=== PATIENT | male | born 1955 | race Caucasian/White ===

== ENCOUNTER 2020-04-07 10:09 | Outpatient (CLI) | payer MEDICARE, SELFPAY | END 2020-04-07 10:10 | disposition home or self-care (01) | PROVIDERS: PCP Internal Medicine; Visit Provider Surgery | DX: K40.90 Unilateral inguinal hernia, without obstruction or gangrene, not specified as recurrent (principal); Z01.812 Encounter for preprocedural laboratory examination | CPT/HCPCS: 36415; 86850; 86900; 86901 ==

== ENCOUNTER 2020-04-08 14:08 | Outpatient (CLI) | payer MEDICARE, SELFPAY ==
[2020-04-08 19:08] LABS: SARS-CoV-2 RNA PCR Negative
== END 2020-04-08 14:09 | disposition home or self-care (01) ==
PROVIDERS: PCP Internal Medicine; Visit Provider Surgery
DX: Z01.818 Encounter for other preprocedural examination (principal); Z11.59 Encounter for screening for other viral diseases
CPT/HCPCS: 87635; C9803; U0003

== ENCOUNTER 2020-04-10 00:48 | Day surgery (SDC) | payer MEDICARE, SELFPAY ==
[2020-04-04 15:10] VITALS: BMI 25.1
[2020-04-10] VITALS (12 sets, daily range): BP systolic 110–129; BP diastolic 55–77; PULSE 41–58; RESP 10–18; TEMP 36.2–36.4; O2SAT 99–100
[2020-04-10] MEDS: LACTATED RINGERS 1,000 ML 30 ML IV CONT ×2 (10:30→13:20)
[2020-04-10] MEDS: ACETAMINOPHEN 500 MG TABLET 1000 MG PO (10:50)
[2020-04-10] MEDS: KETOROLAC 15 MG/ML VIAL (*BKC) IV PUSH (11:05)
--- NOTE | 2020-04-10 11:21 | WPDANESEPPF ---
Anes - Initial Pre Proc Eval Procedure: Operation Date: 04/10/20 12:00 Proposed Procedures p Robotic Assisted Left Inguinal Hernia Repair With Mesh - Sayra Gagnon MD Date/Time: 04/10/20 11:21 Surgeon: Sayra Gagnon MD Pre Op Diagnosis: Left Inguinal Hernia Patient Data Age: 65 Gender: M Height: 5 ft 10 in Weight: 79.1 kg Last Vital Signs Temp 36.4 C L 04/10/20 10:52 Pulse 55 L 04/10/20 10:52 BP 129/77 04/10/20 10:52 Pulse Ox 100 04/10/20 10:52 Allergies Allergy/AdvReac Type Severity Reaction Status Date / Time No Known Allergies Allergy Verified 04/04/20 14:45 Home Medications Medication Instructions Recorded Confirmed Type escitalopram oxalate 10 mg tablet 10 mg PO DAILY 03/14/20 04/10/20 History cyanocobalamin (vitamin B-12) 1,000 mcg PO DAILY 04/04/20 04/10/20 History multivitamin,oz-zhde-fuhicswv 1 tablet PO DAILY 04/04/20 04/10/20 History [Complete Multivitamin] saw-vit E-sod vir-mxl-ztgn-pyg 1 tablet PO DAILY 04/04/20 04/10/20 History [Prostate Health] Patient hx anesthesia problems: none Family hx anesthesia problems: none PMFSH Past Medical History Medical History High cholesterol History of kidney stones Surgical History Surgical History H/O nephrolithotomy with removal of calculi Family History Family History Father Carcinoma of colon Sibling Heart disease Unknown Diabetes mellitus Cancer Tuberculosis Social History Social History Smoking status: Never smoker Alcohol intake: never Living arrangements: with family Spiritual care concerns: No Anes - Eval Final PreProcedure Day of Procedure 04/10/20 11:21 Patient weight: normal Heart: regular rate and rhythm Lungs: clear to auscultation Airway: Mallampati scale class II and other (chipped front tooth) Neurological: alert and oriented Last oral intake: >/= 8 hours ASA classification: II Emergent: no Anesthetic plan: proceed Anesthesia type and monitoring: general ETT and standard monitoring Informed Consent: The patient's anesthetic plan and its attendant risks and benefits were discussed with the patient/family/POA. Questions were solicited and answers provided to the satisfaction of the patient/family/POA.
--- NOTE | 2020-04-10 11:43 | WPDHPUPDATE1 ---
History and Physical Update Update Date/Time: 04/10/20 11:43 History and Physical has been reviewed, including an updated exam of the patient. There are NO changes in the patient's condition. Risks, benefits, and alternatives have been discussed and questions answered. Patient agrees to proceed with procedure.
[2020-04-10] MEDS: ceFAZolin 2 GM/D5W 50 ML 2 GM/50 ML BAG IVPB (11:53)
[2020-04-10] MEDS: BUPIVACAINE/EPINEPHRINE 0.5% 30 ML VIAL INFILTRATE (12:23)
--- NOTE | 2020-04-10 13:41 | PM.PROC ---
Procedure Note - Detailed Date of procedure: 04/10/20 Pre-op diagnosis: Left Inguinal Hernia Post-op diagnosis: same Procedure performed: robotic assisted left inguinal hernia repair Description of procedure: Patient was brought into the operating room and placed in the supine position. After adequate induction of general anesthesia, the patient was prepped and draped in normal sterile fashion. A time-out was then done to verify the patient's identity, as well as the procedure being performed. Began by making a 8 mm incision in the supraumbilical region, a Veress needle was then placed into the peritoneal cavity. CO2 gas was then insufflated and after adequate pneumoperitoneum was achieved, the Veress needle was removed. I then placed an 8 mm trocar through this incision. I then placed the endoscope through this trocar site and under direct visualization placed 2 further 8 mm ports in the right and left mid abdomen. The [id number] robot was then docked to the 3 trocar sites. I then scrubbed out and went to the robotic console. Upon examining the pelvis, it was noted that the patient had a left inguinal hernia. I began by making a preperitoneal flap approximately 6 cm superior to the defect. This flap was carried medially past the umbilical ligaments in laterally to the transversalis. It then began dissection of my medial compartment taking this down to the pubic tubercle. I then began the lateral dissection taking this down to the transversalis fascia. Once these compartments were achieved, I began dissection around the cord structures. It was noted at this point that the patient had a indirect hernia. Patient also had a large lipoma the cord. Using careful dissection, was able to reduce the lipoma cord as well separate the indirect hernia off the cord structures. Once this was adequately done, I went ahead and placed a 15 x 10 piece of Pro Party Demonstrator mesh into the abdominal cavity. The mesh was carefully positioned, centering the center of the mesh over the indirect defect. Once this was done, was very satisfied with our repair. I then closed the peritoneal flap with a running 2.0 V Lock suture. The abdomen was then desufflated, and all ports were removed. All incisions were then closed with the 4.0 monocryl suture. Dermabond was placed on each wound. The patient tolerated the procedure well, was extubated in the operating room postoperatively, and will now be transferred to the recovery room in stable condition. Implants: 15 x 10 progrip mesh Anesthesia: GETA Surgeon: Sayra Gagnon MD Estimated blood loss (mL): 5 Drains: No Packing: No Pathology: none sent Complications: No immediate complications Condition: stable Disposition: PACU Findings: indirect LIH
--- NOTE | 2020-04-10 17:20 | SUR.PHASEII ---
PT VOIDED AT 1700.
== END 2020-04-10 17:20 | disposition home or self-care (01) ==
PROVIDERS: PCP Internal Medicine; Visit Provider Surgery
PROC: 8E0Y4CZ Robotic Assisted Procedure of Lower Extremity, Percutaneous Endoscopic Approach (ICD-10-PCS; CPT 49650; principal; 2020-04-10 12:00)
DX: K40.90 Unilateral inguinal hernia, without obstruction or gangrene, not specified as recurrent (principal); E78.00 Pure hypercholesterolemia, unspecified
CPT/HCPCS: 49650; S2900; A9270; C1781; J0690; J1100; J1170; J1885; J2250; J2405; J2704; J3010; J7120

== ENCOUNTER 2021-06-15 02:14 | Day surgery (SDC) | payer MEDICARE, SELFPAY ==
[2021-06-05 13:57] VITALS: BMI 26.0
--- NOTE | 2021-06-12 12:37 | PM.HPGS ---
History of Present Illness History of Present Illness Consent: Risks, benefits, and alternatives have been discussed and questions answered. Patient agrees to proceed with procedure. Chief complaint: family hx colon ca z80.0 neoplasm Z12.11 Narrative: Lei Vines Jr. is a 66 year old maleWith family history of colon cancer, His father.. He is here today for colon cancer screening Review of Systems Review of Systems: All systems reviewed & are unremarkable except as noted in HPI and below PMFSH Past Medical History Medical History High cholesterol History of kidney stones Surgical History Surgical History H/O hernia repair H/O nephrolithotomy with removal of calculi Family History Family History Father Carcinoma of colon Sibling Heart disease Unknown Diabetes mellitus Cancer Tuberculosis Social History Social History Smoking status: Never smoker Alcohol intake: never Substance use: never Substance use type: does not use Living arrangements: with family Spiritual care concerns: No Meds Home Medications and Allergies Home Medications Medication Instructions Recorded Confirmed Type escitalopram oxalate 10 mg tablet 10 mg PO DAILY 03/14/20 06/05/21 History Complete Multivitamin 1 tablet PO DAILY 04/04/20 06/05/21 History Prostate Health 1 tablet PO DAILY 04/04/20 06/05/21 History cyanocobalamin (vitamin B-12) 1,000 mcg PO DAILY 04/04/20 06/05/21 History vitamins A,C,D-zyzo-kbwpdo 1 cap PO BID 06/05/21 06/05/21 History [PreserVision AREDS] Allergies Allergy/AdvReac Type Severity Reaction Status Date / Time No Known Allergies Allergy Verified 06/15/21 07:59 Exam Resp: Auscultation: clear to auscultation bilaterally Cardio: Rate: regular rate Rhythm: regular rhythm GI: GI Palp: Yes Soft to palpation and No Tenderness to palpation present (GI) Assessment and Plan Assessment and plan (1) Colon cancer screening: Code(s): Z12.11 - Encounter for screening for malignant neoplasm of colon Status: Acute Assessment and Plan: Colonoscopy with possible biopsy or polypectomy or cautery or injection of substances.
[2021-06-15 08:00] VITALS: BP 126/75; PULSE 62; RESP 18; TEMP 36.5; O2SAT 100; BMI 25.6
[2021-06-15] MEDS: LACTATED RINGERS 1,000 ML 150 ML IV CONT (08:09)
--- NOTE | 2021-06-15 08:28 | WPDANESEPPF ---
Anes - Initial Pre Proc Eval Procedure: Operation Date: 06/15/21 09:00 Proposed Procedures p Screening Colonoscopy - Tim Elizabeth MD Date/Time: 06/15/21 08:28 Surgeon: Tim Elizabeth MD Pre Op Diagnosis: family hx colon ca z80.0 neoplasm Z12.11 Patient Data Age: 66 Gender: M Height: 1.75 m Weight: 78.8 kg Last Vital Signs Temp 97.7 F 06/15/21 08:00 Pulse 62 06/15/21 08:00 Resp 18 06/15/21 08:00 BP 126/75 06/15/21 08:00 Pulse Ox 100 06/15/21 08:00 Allergies Allergy/AdvReac Type Severity Reaction Status Date / Time No Known Allergies Allergy Verified 06/15/21 07:59 Home Medications Medication Instructions Recorded Confirmed Type escitalopram oxalate 10 mg tablet 10 mg PO DAILY 03/14/20 06/05/21 History Complete Multivitamin 1 tablet PO DAILY 04/04/20 06/05/21 History Prostate Health 1 tablet PO DAILY 04/04/20 06/05/21 History cyanocobalamin (vitamin B-12) 1,000 mcg PO DAILY 04/04/20 06/05/21 History vitamins A,C,U-jtci-mmludi 1 cap PO BID 06/05/21 06/05/21 History [PreserVision AREDS] Patient hx anesthesia problems: none Family hx anesthesia problems: none PMFSH Past Medical History Medical History High cholesterol History of kidney stones Surgical History Surgical History H/O hernia repair H/O nephrolithotomy with removal of calculi Family History Family History Father Carcinoma of colon Sibling Heart disease Unknown Diabetes mellitus Cancer Tuberculosis Social History Social History Smoking status: Never smoker Alcohol intake: never Substance use: never Substance use type: does not use Living arrangements: with family Spiritual care concerns: No Anes - Eval Final PreProcedure Day of Procedure 06/15/21 08:28 Patient weight: normal Heart: regular rate and rhythm Lungs: clear to auscultation Airway: Mallampati scale class II Neurological: alert and oriented Last oral intake: >/= 8 hours ASA classification: II Emergent: no Anesthetic plan: proceed Anesthesia type and monitoring: general GIVS and standard monitoring Informed Consent: The patient's anesthetic plan and its attendant risks and benefits were discussed with the patient/family/POA. Questions were solicited and answers provided to the satisfaction of the patient/family/POA.
[2021-06-15] MEDS: SIMETHICONE ORAL SUSPENSION 20 MG/0.3 ML 30 ML BOTTLE 0.6 ML IRRIGATION (08:56)
[2021-06-15 09:08] VITALS: BP 94/68; PULSE 78; RESP 25; O2SAT 97
[2021-06-15 09:18] VITALS: BP 107/69; PULSE 70; RESP 23; O2SAT 98
[2021-06-15 09:28] VITALS: BP 119/61; PULSE 55; RESP 18; O2SAT 99
== END 2021-06-15 09:39 | disposition home or self-care (01) ==
PROVIDERS: PCP Internal Medicine; Visit Provider Internal Medicine Gastroenterology
PROC: 0DJD8ZZ Inspection of Lower Intestinal Tract, Via Natural or Artificial Opening Endoscopic (ICD-10-PCS; CPT 45378; principal; 2021-06-15 09:00)
DX: Z12.11 Encounter for screening for malignant neoplasm of colon (principal); K57.30 Diverticulosis of large intestine without perforation or abscess without bleeding; D12.5 Benign neoplasm of sigmoid colon; K64.8 Other hemorrhoids; Z80.0 Family history of malignant neoplasm of digestive organs
CPT/HCPCS: 45381; 45385; 88305; J7120

== ENCOUNTER 2022-09-18 18:17 | Emergency (ER) | payer MEDICARE, SELFPAY ==
--- NOTE | ~2022-09-18 | CT_ITS ---
EXAMINATION: CT abdomen pelvis wo con DATE: 09/19/2022 03:13 INDICATION: L flank pain, hematuria, N/V TECHNIQUE: Computed tomography (CT) of the abdomen and pelvis was performed without intravenous contr ast. Automated exposure control and iterative reconstruction technique were employed. The dose-length product was 425.48 mGy-cm. COMPARISON: None. FINDINGS: Lower thorax: Dependent atelectasis. Small hiatal hernia. Coronary artery calcification. Liver: Left liver lobe cyst. Biliary/Gallbladder: Gallbladder is normal. No bile duct dilation. Pancreas: No mass or duct dilation. Spleen: Normal. Adrenals:No mass. Kidneys: Mild left perinephric stranding and hydronephrosis. GI tract: No small or large bowel dilation. Normal appendix. Diverticulosis without diverticulitis. Mesentery/Peritoneum: No ascites, mass, or free air. Retroperitoneum: No mass. Atherosclerotic abdominal aortic and/or arterial calcifications. Pelvis: 5 mm left distal ureteral stone at the pelvic brim. Soft Tissues: Soft tissues and body wall unremarkable. Bones: No acute osseous finding. IMPRESSION: 5 mm distal left ureteral stone causing mild obstructive uropathy Reviewed, dictated and finalized at location K. TEXTURE MACHINE OPERATOR
[2022-09-18 19:22] VITALS: BP 103/60; PULSE 58; RESP 18; TEMP 36.3; O2SAT 99
[2022-09-18 22:09] VITALS: BP 123/53; PULSE 63; RESP 22; O2SAT 100
[2022-09-18 22:14] LABS: Basophils Percent Auto 0.2 % (0.2-1.2); Eosinophils Percent Auto 0.3 % (0-4.4); Hematocrit 38.9 % (42.0-52.0); Hemoglobin 13.2 g/dL (14.0-18.0); Immature Granulocyte Absolute 0.02 K/mm3 (0.00-0.031); Immature Granulocyte Percent A 0.2 % (0-0.5); Lymphocytes Absolute Auto 0.78 K/mm3 (0.9-3.2); Lymphocytes Percent Auto 7.8 % (18.3-44.2); Mean Corpuscular HGB Conc 33.9 g/dl (32-36); Mean Corpuscular Hemoglobin 33.2 pg (26-34); Mean Corpuscular Volume 97.7 fl (80-100); Mean Platelet Volume 9.9 fl (7.4-10.4); Monocytes Absolute Auto 0.4 K/mm3 (0.1-0.6); Monocytes Percent Auto 3.5 % (2.6-8.5); Neutrophils Absolute Auto 8.9 K/mm3 (1.3-6.7); Platelet Count Result 272 k/mm3 (150-375); Red Blood Count 3.98 M/mm3 (4.6-6.20); Red Cell Distribution Width 12.4 % (11.5-14.5); White Blood Count 10.1 K/mm3 (4.5-10.0)
[2022-09-18 22:16] LABS: Add Urine Microscopic? YES; Appearance Urine Clear (Clear); Bilirubin Urine Negative (Negative); Blood Urine 3+ (Negative); Color Urine Yellow (Yellow); Glucose Urine UA Negative (Negative); Ketones Urine Negative (Negative); Leukocyte Esterase Ur Negative LEU/UL (Negative); Nitrate Urine Negative (Negative); Protein Urine Trace mg/dL (Negative); Specific Grav Ur >= 1.030 (1.001-1.035); pH Urine 5.5 (5.0-9.0)
[2022-09-18 22:24] LABS: Alanine Aminotransferase 23 U/L (6-50); Albumin Level 4.5 g/dL (3.5-5.1); Alkaline Phosphatase 60 U/L (38-126); Anion Gap 9 mmol/L (8-16); Aspartate Amino Transferase 30 U/L (17-59); Bilirubin,Total 0.9 mg/dL (0.2-1.3); Blood Urea Nitrogen 20 mg/dL (9-20); Calcium 9.6 mg/dL (8.4-10.2); Carbon Dioxide 27 mmol/L (22-30); Chloride 105 mmol/L (98-107); Estimated CRCL calculation 56 ml/min; Estimated Glomerular Filt Rate > 60; Glucose 133 mg/dL (65-110); Potassium 3.8 mmol/L (3.4-5.0); Sodium 141 mmol/L (137-145)
[2022-09-18 22:32] LABS: Calcium Oxalate Crystals Urine Present /hpf; Mucus Urine Moderate /lpf; RBC Urine >75 /hpf (0-2); Squamous Epithelial Cell Urine Rare /hpf (Few)
--- NOTE | 2022-09-19 02:53 | ED.ABDPAIN ---
HPI - Abdominal Pain General Chief Complaint: Abdominal Pain Stated Complaint: left flank pain Time Seen by Provider: 09/19/22 02:15 History of Present Illness HPI narrative: 67-year-old male history of kidney stones presenting to the emergency department for evaluation of left-sided flank pain and dark urine. Patient states this morning after breakfast he began having left-sided lower abdominal pain with associated nausea and vomiting. Patient states over the course of the day he also began developing left flank pain. Patient states the pain was similar to his previous kidney stones that he had back and 89 and in 15 but that with his prior stones he did not have the significant nausea and vomiting dated today. While patient was waiting in the waiting room he did have improvement of his pain. Currently patient states that his pain and nausea and vomiting resolved at approximately midnight. Patient denies any complaints at this time. Related Data Home Medications Medication Instructions Recorded Confirmed escitalopram oxalate 10 mg tablet 10 mg PO DAILY 03/14/20 09/20/22 cyanocobalamin (vitamin B-12) 1,000 mcg PO DAILY 04/04/20 09/20/22 1,000 mcg tablet multivitamin,li-huna-ojowhode 1 tablet PO DAILY 04/04/20 09/20/22 (Complete Multivitamin tablet) saw palm 160 mg-vit E 100 1 tablet PO DAILY 04/04/20 09/20/22 unit-selen 100 pnz-qpxj-asqzly-pygeum tablet (Prostate Health) vitamins A,C,A-jcms-otkadf 14,320 1 cap PO DAILY 06/05/21 09/20/22 unit-226 mg-200 unit capsule (PreserVision AREDS) Allergies Allergy/AdvReac Type Severity Reaction Status Date / Time No Known Allergies Allergy Verified 09/20/22 03:42 Review of Systems Review of Systems: CONSTITUTIONAL: Denies fever, chills, or sweats. EYES: Denies visual changes, redness, or discharge. ENT: Denies rhinorrhea, congestion, sore throat, or otalgia. CARDIOVASCULAR: Denies chest pain, palpitations, or edema. RESPIRATORY: Denies cough or dyspnea. GASTROINTESTINAL: See HPI GENITOURINARY: Denies dysuria or hematuria. SKIN: Denies rash or itching. MUSCULOSKELETAL: Denies back pain, joint pain, or myalgia. NEUROLOGIC: Denies headache, numbness, or weakness. [facility] Past Medical History Medical History (Updated 09/20/22 @ 04:06 by Rashaad Bobby MD) High cholesterol History of kidney stones Surgical History Surgical History H/O hernia repair H/O nephrolithotomy with removal of calculi Family History Family History (Updated 09/20/22 @ 04:01 by Carson Kraft RN) Father Carcinoma of colon Sibling Heart disease Cerebrovascular accident Unknown No problems noted. Grandparent Diabetes mellitus Tuberculosis Social History Social History Smoking status: Never smoker Alcohol intake: never Substance use: never Substance use type: does not use Lack of Transportation: No Lack of Food: Never True Current Housing: I Have Housing Concerned About Future Housing: No Difficulty Paying Gas/Electric Bills: No Difficulty Paying for Meds: No Currently Unemployed: No Education: Bachelor's Degree Difficulty w/ Childcare or Family Care: No Spiritual care concerns: No Exam Narrative: APPEARANCE: Well appearing, no pain, no distress, well-nourished. HEAD: normocephalic, atraumatic. EYES: PERRLA/EOMI, conjunctivae clear. NOSE: Normal no drainage NECK: Supple. No adenopathy, no masses. RESPIRATORY: Airway patent, respirations nonlabored. Clear to auscultation bilaterally, no rales, rhonchi, wheezing. CARDIOVASCULAR: Regular rate and rhythm without murmurs rubs or gallops. ABDOMINAL: Soft, nontender, nondistended, normal bowel sounds. No abdominal tenderness to deep palpation. MUSCULOSKELETAL: Moves all extremities. Strength/ROM intact, No edema, No calf tenderness. NEURO: Alert. Cranial nerves II thro
--- NOTE | 2022-09-19 03:20 | PC.NURSE ---
Report received from SOILA Butler, assumed care of patient at this time.
[2022-09-19 04:46] VITALS: BP 123/62; PULSE 71; RESP 17; TEMP 36.6; O2SAT 97
== END 2022-09-19 04:40 | disposition home or self-care (01) ==
PROVIDERS: Emergency Provider Emergency Medicine; PCP Internal Medicine
DX: N20.1 Calculus of ureter (principal)
CPT/HCPCS: 36415; 74176; 80053; 81001; 85025; 99284

== ENCOUNTER 2022-09-20 00:07 | Observation (INO) | payer MEDICARE, SELFPAY ==
[2022-09-20] VITALS (17 sets, daily range): BP systolic 95–155; BP diastolic 60–83; PULSE 52–64; RESP 13–22; TEMP 36.2–36.7; O2SAT 96–100; BMI 25.6; BMI 26.4
--- NOTE | ~2022-09-20 | XR_ITS ---
EXAMINATION: XR retrograde pyelo w/stent LT DATE: 09/20/2022 15:40 JUSTICE PROFESSOR INDICATION: left RPG, left stent placement . TECHNIQUE: 5 fluoroscopic images of the left abdomen and pelvis were obtained during left retrograde pyelography with stent placement performed by the surgeon. I was not present in the operating room. F luoroscopy exposure time was 44 seconds. DAP [id number] [id number]. COMPARISON: CT abdomen pelvis 09/19/2022 FINDINGS: The previously detected distal left ureteral stone is not confidently visualized. Wire access accompl ished to the left collecting system followed by stent deployment with the proximal coil obscured by c ontrast but likely in the renal pelvis and distal coil projecting over the bladder. IMPRESSION: Fluoroscopic documentation of left retrograde pyelography and stent placement. Please refer to the op erative note for complete procedural details . Reviewed, dictated and finalized at location K. ICE PROFESSOR IMPRESSION: Fluoroscopic documentation of left retrograde pyelography and stent placement. Please refer to the operative note for complete procedural details .
[2022-09-20 00:33] LABS: Basophils Percent Auto 0.3 % (0.2-1.2); Eosinophils Absolute Auto 0.1 K/mm3 (0-0.3); Eosinophils Percent Auto 1.1 % (0-4.4); Hematocrit 36.8 % (42.0-52.0); Hemoglobin 12.4 g/dL (14.0-18.0); Immature Granulocyte Absolute 0.04 K/mm3 (0.00-0.031); Immature Granulocyte Percent A 0.4 % (0-0.5); Lymphocytes Absolute Auto 2.09 K/mm3 (0.9-3.2); Lymphocytes Percent Auto 19.1 % (18.3-44.2); Mean Corpuscular HGB Conc 33.7 g/dl (32-36); Mean Corpuscular Hemoglobin 33.2 pg (26-34); Mean Corpuscular Volume 98.7 fl (80-100); Mean Platelet Volume 9.5 fl (7.4-10.4); Monocytes Absolute Auto 0.8 K/mm3 (0.1-0.6); Monocytes Percent Auto 7.4 % (2.6-8.5); Neutrophils Absolute Auto 7.9 K/mm3 (1.3-6.7); Neutrophils Percent Auto 71.7 % (45.5-73.1); Platelet Count Result 235 k/mm3 (150-375); Red Blood Count 3.73 M/mm3 (4.6-6.20); Red Cell Distribution Width 12.6 % (11.5-14.5)
[2022-09-20 00:41] LABS: Add Urine Microscopic? YES; Appearance Urine Clear (Clear); Bilirubin Urine 1+ (Negative); Blood Urine 3+ (Negative); Color Urine Brown (Yellow); Glucose Urine UA Negative (Negative); Ketones Urine Trace mg/dL (Negative); Leukocyte Esterase Ur Negative LEU/UL (Negative); Nitrate Urine Negative (Negative); Protein Urine 2+ mg/dL (Negative); Specific Grav Ur >= 1.030 (1.001-1.035)
[2022-09-20 00:44] LABS: Alanine Aminotransferase 22 U/L (6-50); Albumin Level 4.3 g/dL (3.5-5.1); Alkaline Phosphatase 58 U/L (38-126); Anion Gap 9 mmol/L (8-16); Aspartate Amino Transferase 31 U/L (17-59); Bilirubin,Total 0.5 mg/dL (0.2-1.3); Blood Urea Nitrogen 24 mg/dL (9-20); Calcium 9.1 mg/dL (8.4-10.2); Carbon Dioxide 29 mmol/L (22-30); Chloride 103 mmol/L (98-107); Estimated CRCL calculation 48 ml/min; Estimated Glomerular Filt Rate 55; Glucose 121 mg/dL (65-110); Potassium 3.4 mmol/L (3.4-5.0); Sodium 141 mmol/L (137-145)
[2022-09-20 00:47] LABS: Bacteria Urine Trace /hpf; Mucus Urine Few /lpf; RBC Urine >75 /hpf (0-2); Squamous Epithelial Cell Urine Rare /hpf (Few)
--- NOTE | 2022-09-20 01:21 | ED.GENADULT ---
HPI - General Adult General Chief complaint: Urogenital-Male Stated complaint: left flank pain Time Seen by Provider: 09/20/22 00:09 History of Present Illness HPI narrative: 67-year-old male presenting the emergency department for evaluation of worsening left-sided flank pain. Patient was evaluated emergency department yesterday and diagnosed with a 3 mm distal ureteral stone. Overnight read of the CT measure the stone at 5 mm. Patient was discharged from the emergency department yesterday and his pain was controlled. Patient states his pain returned today at approximately noon and has been persistent. Patient states that the [place] has not helped to control his pain. Patient reports he has had prior kidney stones in and in 2016. Patient's last kidney stone was taken care of by urology at [place]. Patient no longer follows up with this urologist. Related Data Home Medications Medication Instructions Recorded Confirmed escitalopram oxalate 10 mg tablet 10 mg PO DAILY 03/14/20 06/05/21 cyanocobalamin (vitamin B-12) 1,000 mcg PO DAILY 04/04/20 06/05/21 1,000 mcg tablet multivitamin,fd-ajco-oavgqrqg 1 tablet PO DAILY 04/04/20 06/05/21 (Complete Multivitamin tablet) saw palm 160 mg-vit E 100 1 tablet PO DAILY 04/04/20 06/05/21 unit-selen 100 gnd-pcxp-ereeqo-pygeum tablet (Prostate Health) vitamins A,C,O-ritp-ffbpxs 14,320 1 cap PO BID 06/05/21 06/05/21 unit-226 mg-200 unit capsule (PreserVision AREDS) Allergies Allergy/AdvReac Type Severity Reaction Status Date / Time No Known Allergies Allergy Verified 09/20/22 03:42 Review of Systems Review of Systems: CONSTITUTIONAL: Denies fever, chills, or sweats. EYES: Denies visual changes, redness, or discharge. ENT: Denies rhinorrhea, congestion, sore throat, or otalgia. CARDIOVASCULAR: Denies chest pain, palpitations, or edema. RESPIRATORY: Denies cough or dyspnea. GASTROINTESTINAL: See HPI GENITOURINARY: See HPI SKIN: Denies rash or itching. MUSCULOSKELETAL: Denies back pain, joint pain, or myalgia. NEUROLOGIC: Denies headache, numbness, or weakness. [facility] Past Medical History Medical History (Updated 09/20/22 @ 04:06 by Rashaad Bobby MD) High cholesterol History of kidney stones Surgical History Surgical History H/O hernia repair H/O nephrolithotomy with removal of calculi Family History Family History (Updated 09/20/22 @ 04:01 by Carson Kraft RN) Father Carcinoma of colon Sibling Heart disease Cerebrovascular accident Unknown No problems noted. Grandparent Diabetes mellitus Tuberculosis Social History Social History Smoking status: Never smoker Alcohol intake: never Substance use: never Substance use type: does not use Spiritual care concerns: No Exam Narrative: APPEARANCE: Uncomfortable appearing due to flank pain HEAD: normocephalic, atraumatic. EYES: PERRLA/EOMI, conjunctivae clear. NOSE: Normal no drainage EARS:TMS clear with good light reflex. THROAT: Pharynx clear, no exudate. NECK: Supple. No adenopathy, no masses. RESPIRATORY: Airway patent, respirations nonlabored. Clear to auscultation bilaterally, no rales, rhonchi, wheezing. CARDIOVASCULAR: Regular rate and rhythm without murmurs rubs or gallops. ABDOMINAL: Soft, nontender, nondistended, normal bowel sounds MUSCULOSKELETAL: Moves all extremities. Strength/ROM intact, No edema, No calf tenderness. NEURO: Alert. Cranial nerves II through XII intact. Grossly intact SKIN: Warm, dry. Normal Color Course Course Emergency Course: Patient did feel improved with pain medication in the emergency department. Patient is afebrile but does have a leukocytosis of 11. Patient's kidney function is similar to his baseline. UA does show red blood cells but no markers of infection. Patient was negative for influenza COVID an
[2022-09-20] MEDS: SODIUM CHLORIDE 0.9% IV 1,000 ML 999 ML IV CONT (01:26)
[2022-09-20] MEDS: ONDANSETRON INJ 4 MG/2 ML VIAL IV PUSH (01:27)
[2022-09-20] MEDS: HYDROmorphone HCL INJ (*CRX) 1 MG/ML SYR IV PUSH (01:27)
[2022-09-20 02:48] LABS: Influenza A QL RT-PCR Negative (Negative); Influenza B QL RT-PCR Negative (Negative); RSV RNA, RT-PCR Negative (Negative); SARS-CoV-2 RNA PCR Negative
--- NOTE | 2022-09-20 03:33 | PC.NURSE ---
Patient arrived on 3 Med-Surg on 03:27
[2022-09-20] MEDS: SODIUM CHLORIDE 0.9% IV 1,000 ML 100 ML IV CONT ×2 (04:05→13:52)
--- NOTE | 2022-09-20 04:54 | PM.IMHP ---
H&P: HPI History of Present Illness Date/Time: 09/20/22 04:54 Chief Complaint: Worsening pain from kidney stone Narrative: 67-year-old male with past medical history prior hernia repair, anxiety and prior kidney stones who presented to the ER via private vehicle due to worsening left flank pain. The patient had been evaluated in the primary care provider hours of the due to left flank pain, dark urine and nausea vomiting and had a CT scan performed which confirmed 5 mm distal left ureteral stone with mild obstructive uropathy. He reported that he is sad in the ER for 12 hours waiting to be seen. By the time he was placed in a room his pain had completely resolved. He was discharged with scripts for Flomax, ibuprofen, [place] and Zofran. He was discharged home. However, he returned on the primary care provider hours of the due to worsening pain despite use of [place]. The patient's prior kidney stones occurred in 1991 and in 2016. In 2017 the patient required lithotripsy and was performed at [facility]. He has not followed up with urology since that time. He denies any fevers or chills. He had a CBC which demonstrated minimal leukocytosis and a BMP that demonstrate BUN at increased from 20-24 within increasing creatinine from 1.1-1.3. His urine was brown in color with 2+ protein 3+ blood and greater than 75 RBCs. There was no evidence of infection. The patient has not had a recurrence of his nausea vomiting since prior to his earlier ER visit. he reported that when the pain recurred as in the left lower flank. It was exactly like her prior kidney stone pain. Was 10/10 in intensity. [place] did not relieve his pain.The patient also reported hematuria. He denies any difficulty starting or stopping his urinary stream, dysuria, incomplete bladder emptying or nocturia. He gets up 1-2 times a night to urinate but states that 1 of the reasons he does not drink as much water as he should as he does not want to get up any more frequently during the night to urinate. the patient reports that his 1st kidney stone in 1991 he was able to pass on his own. When he had the kidney stones in 2016 he had a fiber 6 mm stone on 1 side for which she had a stent placed. On the other side he had a 10 mm stone up in the kidney that he later had lithotripsy on. He reports that with a stone in 2017 he he developed pyelonephritis and required IV antibiotics. He knows that he is getting recurrent stones because he drinks a lot of tea and soda. He reports that he switched from dark soda to diet 7 up after his last stone. He drinks some sparkling water but does not really drink much regular water. Review of Systems Review of Systems: 10 systems were reviewed with pertinent positives and negatives per HPI. Except as documented in the HPI, all other systems were reviewed and are negative. [facility] Past Medical History Medical History (Updated 09/20/22 @ 07:13 by Hiral Rodriguez DO) Anxiety Cataracts, both eyes maturing High cholesterol History of kidney stones Surgical History Surgical History (Updated 09/20/22 @ 07:08 by Hiral Rodriguez DO) H/O nephrolithotomy with removal of calculi (~2016) History of colonoscopy with polypectomy (05/2021) History of left inguinal hernia repair (04/10/20) Status post cystoscopy with ureteral stent placement (~2016) Family History Family History (Updated 09/20/22 @ 05:16 by Hiral Rodriguez DO) Father Carcinoma of colon Sibling Heart disease Cerebrovascular accident Unknown No problems noted. Grandparent Diabetes mellitus Tuberculosis Social History Social History (Updated 09/20/22 @ 07:09 by Hiral Rodriguez DO) Social History: The patient lives with his of 48 years. They have 1 daughter and 2 sons who are healthy. 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 He is a lifelong nonsmoker and does not drink alcohol. Code status: Full code Surrogate decision maker:
[2022-09-20] MEDS: ESCITALOPRAM OXALATE 10 MG TABLET PO (08:25)
--- NOTE | 2022-09-20 15:27 | WPDANESEPP ---
Anes - Eval Pre Procedure Procedure: Operation Date: 09/20/22 15:30 Proposed Procedures p Cysto, RPG, Stone Ext, Stent Placement - Jag Bruce MD Date/Time: 09/20/22 15:27 Pre Op Diagnosis: Left-sided Ureteral Calculi Patient Data Age: 67 Gender: M Height: 1.75 m Weight: 81.4 kg Last Vital Signs Temp 97.8 F 09/20/22 15:00 Pulse 59 L 09/20/22 15:00 Resp 16 09/20/22 15:00 BP 118/67 09/20/22 15:00 Pulse Ox 96 09/20/22 15:00 O2 Del Method Room Air 09/20/22 08:00 O2 Flow Rate 2 09/20/22 01:40 Allergies Allergy/AdvReac Type Severity Reaction Status Date / Time No Known Allergies Allergy Verified 09/20/22 03:42 Home Medications Medication Instructions Recorded Confirmed Type escitalopram oxalate 10 mg tablet 10 mg PO DAILY 03/14/20 09/20/22 History cyanocobalamin (vitamin B-12) 1,000 mcg PO DAILY 04/04/20 09/20/22 History 1,000 mcg tablet multivitamin,yb-rklz-vypdlati 1 tablet PO DAILY 04/04/20 09/20/22 History (Complete Multivitamin tablet) saw palm 160 mg-vit E 100 1 tablet PO DAILY 04/04/20 09/20/22 History unit-selen 100 ful-vhyv-guesis-pygeum tablet (Prostate Health) vitamins A,C,F-mxgt-bfgabq 14,320 1 cap PO DAILY 06/05/21 09/20/22 History unit-226 mg-200 unit capsule (PreserVision AREDS) Laboratory Tests 09/20/22 09/20/22 09/20/22 00:27 00:27 00:35 WBC 11.0 K/mm3 H K/mm3 (4.5-10.0) RBC 3.73 M/mm3 L M/mm3 (4.6-6.20) Hgb 12.4 g/dL L g/dL (14.0-18.0) Hct 36.8 % L % (42.0-52.0) MCV 98.7 fl fl (80-100) MCH 33.2 pg pg (26-34) MCHC 33.7 g/dl g/dl (32-36) RDW 12.6 % % (11.5-14.5) Plt Count 235 k/mm3 k/mm3 (150-375) MPV 9.5 fl fl (7.4-10.4) Immature Gran % (Auto) 0.4 % % (0-0.5) Neut % (Auto) 71.7 % % (45.5-73.1) Lymph % (Auto) 19.1 % % (18.3-44.2) [place] % (Auto) 7.4 % % (2.6-8.5) Eos % (Auto) 1.1 % % (0-4.4) Baso % (Auto) 0.3 % % (0.2-1.2) Lymph # (Auto) 2.09 K/mm3 K/mm3 (0.9-3.2) [place] # (Auto) 0.8 K/mm3 H K/mm3 (0.1-0.6) Eos # (Auto) 0.1 K/mm3 K/mm3 (0-0.3) Baso # (Auto) 0.0 K/mm3 K/mm3 (0.0-0.1) Abs Immat Gran (auto) 0.04 K/mm3 H K/mm3 (0.00-0.031) Absolute Neuts (auto) 7.9 K/mm3 H K/mm3 (1.3-6.7) Absolute Nucleated RBC 0.0 K/mm3 K/mm3 (0.0-0.012) Nucleated RBC % 0.0 % % (0.0-0.2) Sodium 141 mmol/L mmol/L (137-145) Potassium 3.4 mmol/L mmol/L (3.4-5.0) Chloride 103 mmol/L mmol/L (98-107) Carbon Dioxide 29 mmol/L mmol/L (22-30) Anion Gap 9 mmol/L mmol/L (8-16) BUN 24 mg/dL H mg/dL (9-20) Creatinine 1.30 mg/dL mg/dL (0.7-1.3) Estim Creat Clear Calc 48 ml/min ml/min Estimated GFR 55 L (59 - ) Glucose 121 mg/dL H mg/dL (65-110) Calcium 9.1 mg/dL mg/dL (8.4-10.2) Total Bilirubin 0.5 mg/dL mg/dL (0.2-1.3) AST 31 U/L U/L (17-59) ALT 22 U/L U/L (6-50) Alkaline Phosphatase 58 U/L U/L (38-126) Total Protein 7.0 g/dL g/dL (6.3-8.2) Albumin 4.3 g/dL g/dL (3.5-5.1) Urine Color Brown H (Yellow) Urine Appearance Clear (Clear) Urine pH 5.0 (5.0-9.0) Ur Specific [place] >= 1.030 (1.001-1.035) Urine Protein 2+ mg/dL H mg/dL (Negative) Urine Glucose (UA) Negative mg/dL mg/dL (Negative) Urine Ketones Trace mg/dL mg/dL (Negative) Ur Blood (Man) 3+ H (Negative) Urine Nitrate Negative (Negative) Urine Bilirubin 1+ H (Negative) Urine Urobilinogen 1.0 mg/dL mg/dL (<2.0) Leukocyte Esterase Rfl Negative MAUDE/UL MAUDE/UL (Negative) Urine RBC
[2022-09-20] MEDS: LACTATED RINGERS 1,000 ML 30 ML IV CONT (15:30)
--- NOTE | 2022-09-20 15:33 | WPDURCON ---
Assessment and Plan Assessment and plan (1) Obstructive uropathy: Code(s): N13.9 - Obstructive and reflux uropathy, unspecified Status: Acute (2) Calculus of distal left ureter: Code(s): N20.1 - Calculus of ureter Status: Acute Assessment and Plan: plan for cysto RPG and stent. given failure of MET. risks benefits, alternatives, nature of procedure, potential complications reviewed. -risks including but not limited to bleeding, infection, ureteral injury, stricture, trauma to surrounding/adjacent structures, inability to place stent, need for PCN from IR, the SE and temporary nature of stent reviewed including irritative voiding symptoms pain similar to kidney stone pain, he understands he will need definitive stone management in the future, additionally we discussed anesthesia risks of IN, stroke blood clots, PE, and disability. all ? answered in laymans terms he elects to proceed. present for conversation. Urology Consult Note HPI Date Seen: 09/20/22 Requesting Physician: Viky Rodriguez PA-C Primary Care Provider: Jeremy Flores, Consult Narrative Narrative: Lei Vines Jr. is a 67 year old male with a hx of nephrolitiaisis in 1991 an d[address] Saez and Dr Weaver who presents with recurrent flank pain. he was found to have a left stone and was d/c'ed on MET. Returned to ER with worsening flank pain, nausea and vomiting. Denies fevers/chills. Has been NPO. Cr rising. He has had stents prior and understands they cause pain. He understands we are not treating stone today. Review of Systems Constitutional: Constitutional: Reports no additional constitutional complaints, Denies body ache(s) and Denies chills Eyes: Eyes: Reports no additional eye complaints ENT: Reports system reviewed and no additional complaints, except as documented Cardiovascular: Cardiovascular: Reports no additional cardiovascular complaints Respiratory: Respiratory: Reports no additional respiratory complaints Gastrointestinal: Gastrointestinal: Reports no additional gastrointestinal complaints Genitourinary: Genitourinary: Reports as per HPI Musculoskeletal: Musculoskeletal: Reports as per HPI Integumentary/Breasts: Skin/Breast: Reports system reviewed and no additional complaints, except as docu Neurologic: Reports system reviewed and no additional complaints, except as documented and Denies confusion Psychiatric: Psychiatric: Reports no additional psychiatric complaints PMFSH Past Medical History Medical History Anxiety Cataracts, both eyes maturing High cholesterol History of kidney stones Surgical History Surgical History H/O nephrolithotomy with removal of calculi (~2016) History of colonoscopy with polypectomy (05/2021) History of left inguinal hernia repair (04/10/20) Status post cystoscopy with ureteral stent placement (~2016) Family History Family History Father Carcinoma of colon Sibling Heart disease Cerebrovascular accident Unknown No problems noted. Grandparent Diabetes mellitus Tuberculosis Social History Social History Social History: The patient lives with his of 48 years. They have 1 daughter and 2 sons who are healthy. 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 He is a lifelong nonsmoker and does not drink alcohol. Code status: Full code Surrogate decision maker: Smoking status: Never smoker Alcohol intake: never Substance use: never Substance use type: does not use Lack of Transportation: No Lack of Food: Never True Current Housing: I Have Housing Concerned About Future Housing: No Difficulty Paying Gas/Electric Bills: No Difficulty Paying for Meds: No Currently
--- NOTE | 2022-09-20 15:41 | WPDHPUPDATE1 ---
History and Physical Update Update Date/Time: 09/20/22 15:41 History and Physical has been reviewed, including an updated exam of the patient. There are NO changes in the patient's condition. Risks, benefits, and alternatives have been discussed and questions answered. Patient agrees to proceed with procedure.
--- NOTE | 2022-09-20 15:42 | P.PNAN_ITS ---
Anes - Eval Final PreProcedure Day of Procedure 09/20/22 15:42 Patient weight: overweight Heart: regular rate and rhythm Lungs: clear to auscultation Airway: Mallampati scale class II Neurological: alert and oriented Last oral intake: >/= 8 hours ASA classification: II Emergent: yes Anesthetic plan: proceed Anesthesia type and monitoring: general LMA and standard monitoring Results Review: All pre-operative results and documents have been reviewed as part of the pre- operative evaluation. Informed Consent: The patient's anesthetic plan and its attendant risks and benefits were discussed with the patient/family/POA. Questions were solicited and answers provided to the satisfaction of the patient/family/POA.
[2022-09-20] MEDS: LIDOCAINE HCL 2% GEL UROJET 10 ML PKG MUCOUS MEM (15:57)
--- NOTE | 2022-09-20 16:02 | W.PM.PROC2 ---
Procedure Note - Detailed Date of Procedure 09/20/22 Pre-op Diagnosis Left-sided Ureteral Calculi Post-op Diagnosis Same Procedure Performed cystoscopy, left retrograde pyelogram, left ureteral stent placement Surgeon Jag Bruce MD Anesthesia General Indications ureter stone, failure of trial of passage Findings radio-opaque distal ureter stone Description of Procedure Patient was brought back to the operating room, he received a general anesthetic. He was prepped and draped in standard fashion in the dorsal lithotomy position with Betadine to the genitalia, care was taken to not hyperflex or hyperextend any extremity, all bony prominences were padded. He received IV rocepin on the floor. After appropriate time-out and radiological films were displayed in the room, a 20 Fr cystoscope was inserted into the urethra, it was grossly brandin. prostate was non obstructive. Endoscopy of the bladder reveal single orthotopic ureteral orifices effluxing clear yellow urine. Bladder was free of lesion, tumor mass or stone. Bentson wire was inserted into the left ureter, stone seen on insurance verification representative KUB. Under fluoroscopy I was able to navigate the wire into the kidney, 5 Fr angio cath placed over wire past stone and RPG was performed to outline collecting system. there was mild hydronephrosis and hydroureter to the level of the stone. Wire was replaced a a 4.8 Fr variable length stent was deployed. Good curl was seen fluoroscopically in the kidney and both fluoroscopically and endoscopically in the bladder. 10 cc of uro-jet was used for local anesthesia, All instruments and wires removed, patient awoken and transferred to PACU in stable condition. informed of findings and followup plan Implants left 4.8 variable length double J stent Urine Output 0 Complications No immediate complications Condition Stable Disposition PACU
--- NOTE | 2022-09-20 16:16 | PM.IMPN ---
Progress Note: A&P Assessment and Plan (1) Calculus of distal left ureter: Code(s): N20.1 - Calculus of ureter Status: Acute Assessment and Plan: Presented with left flank pain and CT of the abdomen/pelvis revealed 5 mm distal left ureteral stone causing mild obstructive uropathy. Failed outpatient conservative management with Flomax and analgesics. Appreciate urology consultation. Patient to undergo cystoscopy with stent placement today. No evidence of urinary tract infection, however given mild leukocytosis patient received 1 dose of IV Rocephin preoperatively. Further recommendations pending urology evaluation. Continue with IV fluids while NPO. (2) Obstructive uropathy: Code(s): N13.9 - Obstructive and reflux uropathy, unspecified Status: Acute Assessment and Plan: See plan as above Plan Discussed outpatient follow-up with PCP and consider formal sleep study based on concerns for sleep apnea Subjective Date/time seen: 09/20/22 16:16 Interval history: Date of service: 09/20/2022 Lei Vines is a 67-year-old male with a history of kidney stones, hyperlipidemia, and anxiety who is seen in follow-up for left ureteral stone. Patient presented with complaints of left-sided back and flank pain which he states has resolved at this time. He denies nausea or vomiting. Reports his urine is slightly dark yellow but no longer has blood in his urine. Denies fever, chills, shortness of breath, cough, chest pain. No additional concerns. is present at the bedside who reports concerns for sleep apnea, however patient does not feel he has any issues with sleep. Review of Systems Review of Systems: All systems reviewed & are unremarkable except as noted in HPI and below Exam Narrative: General: Well-nourished, well-appearing 67-year-old male, sitting up in bed, comfortable, NARD Neuro: awake, alert and oriented x4, speech clear, no focal neuro deficits noted HEENMT: normocephalic, atraumatic, EOMI, sclerae anicteric, moist oral mucosa Respiratory: clear to auscultation bilaterally, nonlabored breathing Cardio: regular rate, regular rhythm with S1-S2 Abdomen: nondistended, normoactive bowel sounds, soft, nontender to palpation : No CVA tenderness Extremities: no edema, erythema, or tenderness to palpation, DP pulses 2+ bilaterally Skin: no rashes or lesions, warm and dry Psych: appropriate mood and affect, judgment and insight intact Objective Data Vital Signs Vital Signs: Vital Signs - 24 hr 09/20/22 00:12 09/20/22 01:33 09/20/22 01:49 Temperature 98.0 F Pulse Rate 64 57 L Respiratory Rate 22 H 18 Blood Pressure 136/61 155/83 H Pulse Oximetry 97 100 96 Oxygen Delivery Room Air Oxygen Flow Rate 09/20/22 01:40 09/20/22 02:00 09/20/22 02:01 Temperature Pulse Rate Respiratory Rate Blood Pressure 133/70 Pulse Oximetry 98 98 98 Oxygen Delivery Nasal Cannula Oxygen Flow Rate 2 09/20/22 02:15 09/20/22 02:37 09/20/22 02:45 Temperature Pulse Rate 56 L Respiratory Rate 18 Blood Pressure Pulse Oximetry 98 98 98 Oxygen Delivery Oxygen Flow Rate 09/20/22 03:00 09/20/22 03:01 09/20/22 03:40 Temperature 97.6 F Pulse Rate 60 Respiratory Rate 18 Blood Pressure 122/68 132/66 Pulse Oximetry 99 100 98 Oxygen Delivery Oxygen Flow Rate 09/20/22 04:38 09/20/22 05:47 09/20/22 08:00 Temperature 97.4 F L Pulse Rate 55 L Respiratory Rate 18 Blood Pressure 122/60 Pulse Oximetry 97 Oxygen Delivery Room Air Room Air Oxygen Flow Rate 09/20/22 15:00 09/20/22 16:05 Temperature 97.8 F 97.1 F L Pulse Rate 59 L 52 L Respiratory Rate 16 22 H Blood Pressure 118/67 95/61 L Pulse Oximetry 96 98 Oxygen Delivery Simple Face Mask Oxygen Flow Rate 6 Intake/Output Intake/Output: Intake & Output 09/17/22 09/18/22 09/19/22 09/20/22 23:59 23:59 23:59 23:59 Intake Total 2000
--- NOTE | 2022-09-21 08:14 | PM.DS ---
DS: Admitting Diagnosis Discharge Date 09/20/22 Admitting Diagnosis Ureterolithiasis DS: Discharge Diagnosis Discharge Diagnosis (1) Calculus of distal left ureter: Code(s): N20.1 - Calculus of ureter Status: Acute Assessment and Plan: Presented with left flank pain and CT of the abdomen/pelvis revealed 5 mm distal left ureteral stone causing mild obstructive uropathy. Failed outpatient conservative management with Flomax and analgesics. Patient was seen in consultation by Urology and underwent cystoscopy with left retrograde pyelogram and left ureteral stent placement. Tolerated the procedure well. Will follow-up with urology as an outpatient for stent removal. (2) Obstructive uropathy: Code(s): N13.9 - Obstructive and reflux uropathy, unspecified Status: Acute Assessment and Plan: See plan as above Plan Discussed outpatient follow-up with PCP and consider formal sleep study based on concerns for sleep apnea DS: Summary Hospital Course Hospital Course: Date of admission: 09/20/2022 Date of discharge: 09/20/2022 Lei Vines is a 67-year-old male with a history of kidney stones, hyperlipidemia, and anxiety who presented to the emergency department on 09/20/2022 with complaints of left-sided flank pain. Patient had been seen in the ED 1 day prior and was noted to have a distal ureteral stone. He was discharged with Flomax and analgesics instructed to follow-up with urology. He returned 1 day later after failed conservative management. On presentation to the ED, his vital signs were stable, he was afebrile, WBC 11.0, additional laboratory workup unremarkable, urinalysis with 3+ blood. CT of abdomen/pelvis from 09/19 showed 5 mm distal left ureteral stone causing mild obstructive uropathy. He was admitted to the hospitalist service for further evaluation and management and seen in consultation by Urology. Underwent cystoscopy with left ureteral stent placement. Tolerated the procedure well. His pain was well controlled. Given overall improvement, he was determined to no longer require inpatient care and will follow-up with urology as an outpatient for stent removal. Patient was discharged in hemodynamically stable condition on 09/20/2022. Time Spent with Patient Time attestation: Total time spent providing and/or coordinating discharge services: Exam Narrative: General: Well-nourished, well-appearing 67-year-old male, sitting up in bed, comfortable, NARD Neuro: awake, alert and oriented x4, speech clear, no focal neuro deficits noted HEENMT: normocephalic, atraumatic, EOMI, sclerae anicteric, moist oral mucosa Respiratory: clear to auscultation bilaterally, nonlabored breathing Cardio: regular rate, regular rhythm with S1-S2 Abdomen: nondistended, normoactive bowel sounds, soft, nontender to palpation : No CVA tenderness Extremities: no edema, erythema, or tenderness to palpation, DP pulses 2+ bilaterally Skin: no rashes or lesions, warm and dry Psych: appropriate mood and affect, judgment and insight intact Discharge Plan Discharge Consulting providers: Jag Bruce Discharging Clinician: Jag Bruce Anticipated Discharge Date/Time: 09/20/22 18:12 Patient Disposition: Home, Self-Care Activity: as tolerated Diet: regular Discharge Instructions: Follow up with PCP within 1-2 weeks for hospitalization. Call Urology office to schedule appointment for stent removal. Patient Instructions: Antibiotic Form, Cystoscopy (DC) Stand Alone Forms: General Discharge Information Follow-up/Referrals: Mark,Jeremy Mackenzie MD [Primary Care Provider] - 1 Week Jag Bruce MD [Physician] - Call for Appointment Discharge Medications: Continued escitalopram oxalate 10 mg tablet 10 mg PO DAILY cyanocobalamin (vitamin B-12) 1,000 mcg Tablet 1,000 mcg PO DAILY Complete Multivitamin Tablet 1 tablet PO DAILY Prostate Health 1
== END 2022-09-20 18:35 | disposition home or self-care (01) ==
LOC: ANHED 00:31 → ANH3MEDSUR 03:05
PROVIDERS: Urology; Admitting Provider Internal Medicine; Emergency Provider Emergency Medicine; PCP Internal Medicine; Visit Provider Physician Assistant
PROC: (CPT 52352; principal; 2022-09-20 15:30)
DX: N13.2 Hydronephrosis with renal and ureteral calculous obstruction (principal); E78.00 Pure hypercholesterolemia, unspecified; D72.829 Elevated white blood cell count, unspecified; Z20.822 Contact with and (suspected) exposure to COVID-19; F41.9 Anxiety disorder, unspecified; R79.89 Other specified abnormal findings of blood chemistry; Z87.442 Personal history of urinary calculi; Z79.899 Other long term (current) drug therapy
CPT/HCPCS: 52005; 52332; 36415; 74420; 80053; 81001; 85025; 87637; 96361; 96374; 96375; 99285; A9270; C1758; C1769; C2617; G0378; J0696; J1170; J2405; J2704; J3010; J7030; J7120

== ENCOUNTER 2022-11-10 17:01 | Outpatient (CLI) | payer MEDICARE, SELFPAY ==
--- NOTE | ~2022-11-10 | XR_ITS ---
EXAMINATION: XR abdomen/kub 1V DATE: 11/10/2022 17:20 INDICATION: Left ureteral stone. TECHNIQUE: A supine view of the abdomen on 2 radiographs was obtained. COMPARISON: CT abdomen pelvis 09/19/2022 FINDINGS: There are no dilated loops of bowel. There is no visible urolithiasis. IMPRESSION: 1. No visible urolithiasis. Reviewed, dictated and finalized at location A. ERCIAL LIGHT FIXTURE ASSEMBLER IMPRESSION: 1. No visible urolithiasis.
== END 2022-11-10 17:02 | disposition home or self-care (01) ==
PROVIDERS: PCP Internal Medicine; Visit Provider Urology
DX: N20.1 Calculus of ureter (principal)
CPT/HCPCS: 74018

== ENCOUNTER 2025-07-24 11:20 | Day surgery (SDC) | payer MEDICARE, SELFPAY ==
[2025-07-24] VITALS (9 sets, daily range): BP systolic 102–157; BP diastolic 45–79; PULSE 61–71; RESP 16–29; TEMP 36.4–36.6; O2SAT 95–100
--- NOTE | ~2025-07-24 | XR_ITS ---
Examination: XR chest 1V portable Clinical History: cp Comparison: None Technique: Portable AP Findings: Heart size normal. Lungs clear. No acute bony abnormality. IMPRESSION: 1. No acute cardiopulmonary findings given portable technique. Reviewed, dictated and finalized at location R.
--- NOTE | 2025-07-24 12:31 | ECG_ITS ---
Test Date: 2025-07-24 12:56:02 Measurements Intervals [place] Rate: 70 P: 41 SD: 208 QRS: -42 QRSD: 102 T: 65 QT: 395 QTc: 428 Interpretive Statements SINUS RHYTHM LEFT AXIS DEVIATION POSSIBLE LEFT ATRIAL ENLARGEMENT INCOMPLETE RIGHT BUNDLE BRANCH BLOCK DELAYED PRECORDIAL R/S TRANSITION ST ELEVATION IN ANTERIOR LEADS CONSISTENT WITH INJURY, PERICARDITIS, OR EARLY REPOLARIZATION ABNORMAL ECG No previous ECG available for comparison Electronically Signed On 07-24-2025 13:19:45 CDT by Santiago Hyde D.O.
[2025-07-24] MEDS: GLUCAGON FOR INJ 1 MG VIAL IV PUSH (12:46)
[2025-07-24] MEDS: SODIUM CHLORIDE 0.9% IV 1,000 ML 150 ML IV CONT (12:46)
[2025-07-24 12:56] LABS: Hematocrit 40.6 % (42.0-52.0); Hemoglobin 14.2 g/dL (14.0-18.0); Immature Granulocyte Percent A 0.3 % (0-0.5); Lymphocytes Absolute Auto 1.48 K/mm3 (0.9-3.2); Mean Corpuscular HGB Conc 35.0 g/dl (32-36); Mean Corpuscular Hemoglobin 33.3 pg (26-34); Mean Corpuscular Volume 95.1 fl (80-100); Nucleated Red Blood Cells Absolute Auto 0.000 K/mm3 (0.0-0.012); Nucleated Red Blood Cells Perc 0.0 % (0.0-0.2); Platelet Count Result 252 k/mm3 (150-375); Red Blood Count 4.27 M/mm3 (4.6-6.20); White Blood Count 9.7 K/mm3 (4.5-10.0)
--- NOTE | 2025-07-24 13:02 | ED.GENADULT ---
HPI - General Adult General Chief complaint: Unspecified Stated complaint: esophageal spasms Time Seen by Provider: 07/24/25 12:01 Source: patient Mode of arrival: ambulatory Limitations: no limitations History of Present Illness HPI narrative: 70-year-old with a history of anxiety presents to the ER with complaints of having midsternal chest pain since yesterday. He states that he is unable to swallow his saliva. Had a similar episode few years ago and was at [facility] where he was given an injection which helped with his spasms. He never did follow-up with a GI after that event. Denies any shortness of breath. Onset (ago): day(s) (1) Location: chest Radiation: non-radiation Severity: moderate Quality: aching Pain Consistency: constant Relieving factors: none Exacerbating factors: eating Associated symptoms: denies other symptoms Related Data Home Medications ?Medication ?Instructions ?Recorded ?Confirmed ?Last Taken ?Type escitalopram oxalate 10 mg tablet 10 mg PO DAILY 03/14/20 09/20/22 09/18/22 08:00 History cyanocobalamin (vitamin B-12) 1,000 mcg PO DAILY 04/04/20 09/20/22 09/18/22 08:00 History 1,000 mcg tablet multivitamin,wk-deti-fuwkjnhv 1 tablet PO DAILY 04/04/20 09/20/22 09/18/22 08:00 History (Complete Multivitamin tablet) saw palm 160 mg-vit E 100 1 tablet PO DAILY 04/04/20 09/20/22 09/18/22 08:00 History unit-selen 100 wjb-iuol-ryxqsv-pygeum tablet (Prostate Health) vitamins A,C,A-dmny-ugvoxu 4,296 1 cap PO DAILY 06/05/21 09/20/22 Unknown History mcg-226 mg-90 mg capsule (PreserVision AREDS) Allergies Allergy/AdvReac Type Severity Reaction Status Date / Time No Known Allergies Allergy Verified 07/24/25 13:24 Review of Systems Review of Systems: All systems reviewed & are unremarkable except as noted in HPI and below Constitutional: Constitutional: Reports no additional constitutional complaints Eyes: Eyes: Reports no additional eye complaints ENT: Reports system reviewed and no additional complaints, except as documented Cardiovascular: Cardiovascular: Reports no additional cardiovascular complaints Gastrointestinal: Gastrointestinal: Reports no additional gastrointestinal complaints Musculoskeletal: Musculoskeletal: Reports no additional musculoskeletal complaints Integumentary/Breasts: Skin/Breast: Reports system reviewed and no additional complaints, except as docu PMFSH Past Medical History Medical History Anxiety Cataracts, both eyes maturing High cholesterol History of kidney stones Surgical History Surgical History History of colonoscopy with polypectomy (05/2021) Status post cystoscopy with ureteral stent placement (~2016) History of left inguinal hernia repair (04/10/20) H/O nephrolithotomy with removal of calculi (~2016) Family History Family History Father Carcinoma of colon Sibling Heart disease Cerebrovascular accident Unknown No problems noted. Grandparent Diabetes mellitus Tuberculosis Social History Social History Social History: The patient lives with his of 48 years. They have 1 daughter and 2 sons who are healthy. 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 He is a lifelong nonsmoker and does not drink alcohol. Code status: Full code Surrogate decision maker: Smoking status: Never smoker Alcohol intake: never Substance use: never Substance use type: does not use Lack of Transportation: No Lack of Food: Never True Current Housing: I Have Housing Concerned About Future Housing: No Difficulty Paying Gas/Electric Bills: No Difficulty Paying for Meds: No Currently Unemployed: No Education: Bachelor's Degree Difficulty w/ Childcare or Family Care: No Living arrangements: with family Spiritual care concerns: No Exam Narrative: GENERAL: Well-appearing, well-nourished, and in no acute distress. Anxious and tearful HEAD: Normocephalic, atraumatic. EYES: PERRLA and EOMI. ENT: Nares clear, no rhinorrhea or epistaxis. Mucous membranes moist. NECK: Supple. CHEST: Clear to auscultation. No respiratory distress. HEART: Regular rate and rhythm. No murmur heard. Normal peripheral pulses. ABDOMEN: Soft, nontender, nondistended, normal active bowel sounds. EXTREMITIES: Normal range of motion. No edema. SKIN: Warm, dry, no rash. NEURO: No focal deficits. Alert and oriented x3. PSYCH: Normal mood and affect. Course Course Emergency Course: Discussed with Dr. Ricardo will take him to GI lab Vital Signs Vital signs: Vital Signs Temperature 36.4 C 07/24/25 11:22 Pulse Rate 71 07/24/25 11:22 Respiratory Rate 16 07/24/25 11:22 Blood Pressure 157/79 H 07/24/25 11:22 Pulse Oximetry 98 07/24/25 11:22 Oxygen Delivery Room Air 07/24/25 11:22 Temperature 36.4 C 07/24/25 11:22 Pulse Rate 71 07/24/25 11:22 Respiratory Rate 16 07/24/25 11:22 Blood Pressure 157/79 H 07/24/25 11:22 Pulse Oximetry 98 07/24/25 11:22 Oxygen Delivery Room Air 07/24/25 11:22 Medical Decision Making Vital Signs Vital Signs: Vital Signs Temperature 36.4 C 07/24/25 11:22 Pulse Rate 71 07/24/25 11:22 Respiratory Rate 16 07/24/25 11:22 Blood Pressure 157/79 H 07/24/25 11:22 Pulse Oximetry 98 07/24/25 11:22 Oxygen Delivery Room Air 07/24/25 11:22 Temperature 36.4 C 07/24/25 11:22 Pulse Rate 71 07/24/25 11:22 Respiratory Rate 16 07/24/25 11:22 Blood Pressure 157/79 H 07/24/25 11:22 Pulse Oximetry 98 07/24/25 11:22 Oxygen Delivery Room Air 07/24/25 11:22 Lab Data 07/24/25 12:46 07/24/25 12:46 Labs: Lab Results 07/24/25 Range/Units 12:46 WBC 9.7 (4.5-10.0) K/mm3 RBC 4.27 L (4.6-6.20) M/mm3 Hgb 14.2 (14.0-18.0) g/dL Hct 40.6 L (42.0-52.0) % MCV 95.1 (80-100) fl MCH 33.3 (26-34) pg MCHC 35.0 (32-36) g/dl RDW 13.2 (11.5-14.5) % Plt Count 252 (150-375) k/mm3 MPV 9.3 (7.4-10.4) fl Immature Gran % (Auto) 0.3 (0-0.5) % Neut % (Auto) 76.2 H (45.5-73.1) % Lymph % (Auto) 15.2 L (18.3-44.2) % [place] % (Auto) 6.7 (2.6-8.5) % Eos % (Auto) 1.4 (0-4.4) % Baso % (Auto) 0.2 (0.2-1.2) % Lymph # (Auto) 1.48 (0.9-3.2) K/mm3 [place] # (Auto) 0.7 H (0.1-0.6) K/mm3 Eos # (Auto) 0.1 (0-0.3) K/mm3 Baso # (Auto) 0.0 (0.0-0.1) K/mm3 Abs Immat Gran (auto) 0.03 (0.00-0.031) K/mm3 Absolute Neuts (auto) 7.4 H (1.3-6.7) K/mm3 Absolute Nucleated RBC 0.000 (0.0-0.012) K/mm3 Nucleated RBC % 0.0 (0.0-0.2) % Sodium Pending Potassium Pending Chloride Pending Carbon Dioxide Pending Anion Gap Pending BUN Pending Creatinine Pending Estim Creat Clear Calc Pending Estimated GFR Pending Glucose Pending Calcium Pending Total Bilirubin Pending AST Pending ALT Pending Alkaline Phosphatase Pending Total Protein Pending Albumin Pending Imaging Data Radiologist's impression: ITS Impressions Chest X-Ray 07/24/25 13:06 IMPRESSION: 1. No acute cardiopulmonary findings given portable technique. ECG Data EKG #1: ECG completion date: 07/24/25 ECG completion time: 12:56 EKG Interpretation: normal rate (70), sinus rhythm, no ectopy, normal QRS and NL axis Discharge Plan Discharge Clinical Impression: Food impaction of esophagus Qualifiers: Encounter type: initial encounter Qualified Code(s): T18.128A - Food in esophagus causing other injury, initial encounter; W44.F3XA - Food entering into or through a natural orifice, initial encounter Patient Disposition: Still a Patient Condition: Stable
--- NOTE | 2025-07-24 13:18 | PC.NURSE ---
fluids going per order
[2025-07-24 13:25] LABS: Alanine Aminotransferase 26 U/L (6-50); Albumin Level 4.5 g/dL (3.5-5.1); Alkaline Phosphatase 82 U/L (38-126); Anion Gap 8 mmol/L (4-12); Aspartate Amino Transferase 38 U/L (17-59); Bilirubin,Total 1.7 mg/dL (0.2-1.3); Blood Urea Nitrogen 18 mg/dL (9-20); Calcium 9.5 mg/dL (8.4-10.2); Carbon Dioxide 25 mmol/L (22-30); Chloride 105 mmol/L (98-107); Estimated CRCL calculation 61 ml/min; Estimated Glomerular Filt Rate > 60; Glucose 97 mg/dL (65-110); Potassium 3.8 mmol/L (3.4-5.0); Sodium 138 mmol/L (137-145); Total Protein 7.3 g/dL (6.3-8.2)
--- OUTSIDE RECORDS SUMMARY | 2025-07-24 13:35 | XMS_ITS | Data Portability ---
Author Organization [place] [employer], Main Office Address [address] [place] [address] Care Team Providers Care Cost Report Clerk Name Role Phone ALONZO FLORES Primary Care Provider ALONZO FLORES Referring Provider Assessment Encounter Date Assessment Date Assessment LastModified by Organization Details LastModified Time 08/30/2024 08/30/2024 The patient has a large prepatellar bursa sac of the right anterior knee. We talked about treatment options today in detail we are going to start with aspiration followed by a short course of oral prednisone we talked about this in detail today he wanted to proceed. Therefore under sterile conditions I injected the patient's right anterior lateral knee over the patella with 3 cc of 0.5% bupivacaine. Once this was numbed up I did another sterile prep and I used an 18 gauge needle to aspirate about 25 cc of bloody serous fluid no evidence of pus or infection was noted. This decompressed the sac nicely. I then applied sterile compression dressing and a Band-Aid with gauze and an Aaron wrap. I have advised him to wear the Aaron wrap full-time until I see him back in 1 week to help with compression of the sac so hopefully it will not fill up again he will ice the knee and use the oral steroids as prescribed. I have advised him to not kneel on the knee and stay off the exercise bike for a few days until I see him back help calm down the inflammation. If the fluid returns we could do another aspiration next week we will see what it looks like. Certainly if it starts to look red hot or has any signs of infection whatsoever he will call us immediately he voiced understanding and agreed with the above plan he will call for any further problems difficulties or questions. Today's x-rays were unremarkable other than some mild chondrocalcinosis of the menisci and large prepatellar bursitis fluid collection. Not available 08/30/2024 13:44:57 09/06/2024 09/06/2024 The patient has resolving right knee prepatellar bursitis. He is much improved after oral steroids and aspiration last week. I have advised him to stay off of his knees use ice at the end of a busy day also he will take Aleve 2 pills every 12 hours help with the remaining soft tissue inflammation. He otherwise his symptom free he states it will be livable for him at this point and he is pleased with the aspiration results. If it gets worse or looks concerning in terms of infection he will call me immediately. Otherwise I will see him back as needed he will continue with current conservative measures and call for any further problems difficulties or questions. Not available 09/06/2024 13:46:56 Plan of Treatment Reminders Order Date Submit Date Provider Last Modified By Organization Details Last Modified Time Details Appointments None recorded. Lab lipid panel, serum [email or web address] [place] [address] Outpatient Lab, [address] [place], [address], 4 09:59:50 CMP, serum or plasma 2023 024 [facility], [address] [place], [address], 4 09:59:50 TSH, serum or plasma 2023 024 [email or web address] [facility], [address] [place], [address], 4 09:59:50 T4, free, serum 2023 024 [email or web address] [facility], [address] [place], [address], 4 09:59:50 CBC w/ auto diff 2023 024 [email or web address] [facility], [address] [place], [address], 4 09:59:51 PSA, serum or plasma 2023 024 [email or web address] [facility], [address] [place], [address], 4 09:59:51 PSA, total, serum or plasma 2023 024 [email or web address] [facility], [address] [place], [address], 4 10:55:27 lipid panel, serum 2023 024 [email or web address] [facility], [address] [place] [address], [address], 4 16:45:38 CMP, serum or plasma 2023 024 [email or web address] [facility], [address] [place], [address], 4 16:45:39 TSH, serum or plasma 2023 024 [facility], [address] [place] [address], [address], 4 16:45:39 T4, free, serum 2023 024 [email or web address] [facility], [address] [place] [address], [address], 4 16:45:39 CBC w/ auto diff [email or web address] [place] [address] Outpatient Lab, [address] [place] [address], [address], 4 16:45:39 Referral None recorded. Procedures injection/a spiration joint/bursa (PROC) 2023 024 [email or web address] In-Office Order, Internal Use Only DO Not Attach Compendium DO Not Attach Compendium, Do Not Delete/merge, [id number] 13:38:26 Surgeries None recorded. Imaging XR, knee 2023 024 [email or web address] [facility] [place], [address], [place], [address], 13:46:45 Medication Orders bupivacaine HCl 0.5 % (5 mg/mL) injection solution 2023 024 [email or web address] [facility], [address], [place], [address], 13:46:45 prednisone 10 mg tablets in a dose pack 2023 024 [email or web address] [facility], [address], [place], [address], 13:46:45 Patient TargetsNo targets recorded. Patient Instructions Encounter Date Encounter Id Patient Instructions Last Modified By Organization Details Last Modified Time 10/05/2023 [id number] dementia rating scale-2* [email or web address] Not available 10/05/2023 17:31:46 alcohol misuse* [email or web address] Not available 10/05/2023 17:31:46 depression screening* [email or web address] Not available 10/05/2023 17:31:46 multi-dimensiona l health assessment questionnaire* [email or web address] Not available 10/05/2023 17:31:46 Personalized a lt Plan and Screening Recommendations Advance Directives - Do you have one? Yes Advance Directives - Do we have your advance directive on file in your health record? No, please bring in a copy at your earliest convenience Primary Prevention/Interven tion (prevents or decreases the chance of common diseases from occurring) Smoking Risk: Non Smoker Alcohol Misuse Screening: Negative Weight: Overweight Physical activity: Need more exercise/physical activity Nutrition: Average Eat heart healthy diet Fall Risk (screened today): Low Vaccines Pneumococcal: No further needed Influenza: Recommended today, but you have declined Chronic Disease Risks Stroke: Intermediate Risk Active diagnosis, Continue current treatment plan Heart Attack: Intermediate Risk Active diagnosis, Continue current treatment plan Clogging of the Arteries: Intermediate Risk Active diagnosis, Continue current treatment plan Diabetes: Low Risk I have no recommendations Secondary Prevention/Interven tion (detects treatable diseases before they may cause symptoms, disability, or ) Prostate Cancer Screening: up to date Colon Cancer Screening: Colonoscopy due 2025 Date Screening Last Performed: _2020____ Eye Disease Screening: Your next exam in: goes yearly Dementia Risk: Low I have no recommendations Depression Screening: Negative Active diagnosis, Continue current treatment plan [email or web address] Not available 10/05/2023 17:21:27 Medicare wellnes s evaluation risk assessment stable. Follow-up for hyperlipidemia -depression -possible sleep apnea. Will check blood work consisting of CBC, CMP, lipid and thyroid. Check a home sleep study for possible sleep apnea. Continue on current Rx and follow-up in six months Portions of the record may have been created with voice recognition software. Occasional wrong-word or s ound-a-like substitutions may have occurred due to the inherent limitations of voice recognition software. Read the chart carefully and recognize, using context, where substitutions have occurred. Home sleep study for sleep apnea [email or web address] Not available 10/05/2023 17:31:24 04/04/2024 [id number] Follow-up for hyperlipidemia, mild depression as well as benign prostatic hypertrophy all clinically stable. No interval complaints of any new problems. Does need a PSA but otherwise is doing well. Follow-up in six months Next Appointment: 6 Months Approximate Date: 10/01/2024 Portions of the record may have been created with voice recognition software. Occasional wrong-word or s ound-a-like substitutions may have occurred due to the inherent limitations of voice recognition software. Read the chart carefully and recognize, using context, where substitutions have occurred. [email or web address] Not available 04/04/2024 17:06:53 08/29/2024 [id number] Follow-up for hyperlipidemia, depression, BPH, family history of malignant neoplasm of the GI tract and pain in the right knee. Check blood work consisting of CBC, CMP, lipid, thyroid, PSA. Will get radiographic studies of the knee and set up with orthopedics for further evaluation. Additional Orders - Directives - Recommendations 1. X-ray of the right knee 2. Orthopedic consult for chronic swelling right knee Follow Up: 6 Months Approximate Date: 02/25/2025 Portions of the record may have been created with voice recognition software. Occasional wrong-word or s ound-a-like substitutions may have occurred due to the inherent limitations of voice recognition software. Read the chart carefully and recognize, using context, where substitutions have occurred. Created: Alonzo Flores M.D. 08.29.2024 11:13 AM [email or web address] Not available 08/29/2024 12:13:12 Reason for Referral None Reported. Results Created Date Observation Date Name Description Value Unit Range Abnormal Flag Note LastModifiedBy Organization Detail LastModifiedTime 02/23/20 24 02/24/2024 LIPID PANEL , STAND SUNNY cholesterol, total 171 mg/dL <200 normal Not Available [address], [address], 02/24/2024 08:20:33 02/23/20 24 02/24/2024 LIPID PANEL , STAND SUNNY HDL cholesterol 61 mg/dL > or = 40 normal Not Available [address], [address], 02/24/2024 08:20:33 02/23/20 24 02/24/2024 LIPID PANEL , STAND SUNNY triglyceride s 71 mg/dL <150 normal Not Available [address], [address], 02/24/2024 08:20:33 02/23/20 24 02/24/2024 LIPID PANEL , STAND SUNNY LDL-choleste rol 94 mg/dL _(salome c) normal Refer ence range : <100 Robson able range <100 mg/dL for prima ry preve ntion ; <70 mg/dL for patie nts with CHD or diabe tic patie nts with > or = 2 CHD risk facto rs. LDL-C is now calcu lated using the Joselyn n-Hop kins calcu latio n, which is a valid ated novel metho d provi ding steven r accur acy than the Fried lars equat ion in the estim ation of LDL-C . Joselyn cespedes SS et al. PAMELA. 2013; 310(1 9): 2061- 2068 (http ://ed ucati on.Yoanna aguilarEmployee Benefit Plans. com/f aq/FA Q164) Not Available [address], [address], 02/24/2024 08:20:33 02/23/20 24 02/24/2024 LIPID PANEL , STAND SUNNY chol/HDLC ratio 2.8 (calc ) <5.0 normal Not Available [address], [address], 02/24/2024 08:20:33 02/23/20 24 02/24/2024 LIPID PANEL , STAND SUNNY non HDL cholesterol 110 mg/dL _(salome c) <130 normal For patie nts with diabe lina plus 1 major ASCVD risk facto r, treat ing to a non-H DL-C goal of <100 mg/dL (LDL- C of <70 mg/dL ) is consi dered a thera peuti c optio n. Not Available [address], [address], 02/24/2024 08:20:33 02/23/20 24 02/24/2024 COMPR EHENS HIREN METAB OLIC PANEL glucose 92 mg/dL 65-99 normal Fasti ng refer ence inter monica Not Available [address], [address], 02/24/2024 08:20:35 02/23/20 24 02/24/2024 COMPR EHENS HIREN METAB OLIC PANEL urea nitrogen (BUN) 15 mg/dL 7-25 normal Not Available [address], [address], 02/24/2024 08:20:35 02/23/20 24 02/24/2024 COMPR EHENS HIREN METAB OLIC PANEL creatinine 1.01 mg/dL 0.70-1 .28 normal Not Available [address], [address], 02/24/2024 08:20:35 02/23/20 24 02/24/2024 COMPR EHENS HIREN METAB OLIC PANEL eGFR 80 mL/mi n/1.7 3m2 > or = 60 normal Not Available [address], [address], 02/24/2024 08:20:35 02/23/20 24 02/24/2024 COMPR EHENS HIREN METAB OLIC PANEL BUN/creatini ne ratio SEE NOTE: (calc ) 6-22 Not Repor brennon: BUN and Creat inine are withi n refer ence range . Not Available [address], [place], [address], 02/24/2024 08:20:35 02/23/20 24 02/24/2024 COMPR EHENS HIREN METAB OLIC PANEL sodium 141 mmol/ L 135-14 6 normal Not Available [address], [place], [address], 02/24/2024 08:20:35 02/23/20 24 02/24/2024 COMPR EHENS HIREN METAB OLIC PANEL potassium 4.7 mmol/ L 3.5-5. 3 normal Not Available [address], [address], 02/24/2024 08:20:35 02/23/20 24 02/24/2024 COMPR EHENS HIREN METAB OLIC PANEL chloride 105 mmol/ L 98-110 normal Not Available [address], [address], 02/24/2024 08:20:35 02/23/20 24 02/24/2024 COMPR EHENS HIREN METAB OLIC PANEL carbon dioxide 31 mmol/ L 20-32 normal Not Available [address], [address], 02/24/2024 08:20:35 02/23/20 24 02/24/2024 COMPR EHENS HIREN METAB OLIC PANEL calcium 9.5 mg/dL 8.6-10 .3 normal Not Available [address], [address], 02/24/2024 08:20:35 02/23/20 24 02/24/2024 COMPR EHENS HIREN METAB OLIC PANEL protein, total 6.3 g/dL 6.1-8. 1 normal Not Available [address], [address], 02/24/2024 08:20:35 02/23/20 24 02/24/2024 COMPR EHENS HIREN METAB OLIC PANEL albumin 4.2 g/dL 3.6-5. 1 normal Not Available [address], [address], 02/24/2024 08:20:35 02/23/20 24 02/24/2024 COMPR EHENS HIREN METAB OLIC PANEL globulin 2.1 g/dL_ (calc ) 1.9-3. 7 normal Not Available [address], [address], 02/24/2024 08:20:35 02/23/20 24 02/24/2024 COMPR EHENS HIREN METAB OLIC PANEL albumin/glob ulin ratio 2.0 (calc ) 1.0-2. 5 normal Not Available [address], [address], 02/24/2024 08:20:35 02/23/20 24 02/24/2024 COMPR EHENS HIREN METAB OLIC PANEL bilirubin, total 0.8 mg/dL 0.2-1. 2 normal Not Available [address], [address], 02/24/2024 08:20:35 02/23/20 24 02/24/2024 COMPR EHENS HIREN METAB OLIC PANEL alkaline phosphatase 63 U/L 35-144 normal Not Available [address], [address], 02/24/2024 08:20:35 02/23/20 24 02/24/2024 COMPR EHENS HIREN METAB OLIC PANEL AST 26 U/L 10-35 normal Not Available [address], [address], 02/24/2024 08:20:35 02/23/20 24 02/24/2024 COMPR EHENS HIREN METAB OLIC PANEL ALT 21 U/L 9-46 normal Not Available [address], [address], 02/24/2024 08:20:35 02/23/20 24 02/24/2024 CBC (INCL UDES DIFF/ PLT) white blood cell count 6.1 thous and/u L 3.8-10 .8 normal Not Available [address], [address], 02/24/2024 08:20:36 02/23/20 24 02/24/2024 CBC (INCL UDES DIFF/ PLT) red blood cell count 4.07 brandon on/uL 4.20-5 .80 low Not Available [address], [address], 02/24/2024 08:20:36 02/23/20 24 02/24/2024 CBC (INCL UDES DIFF/ PLT) hemoglobin 13.5 g/dL 13.2-1 7.1 normal Not Available [address], [address], 02/24/2024 08:20:36 02/23/20 24 02/24/2024 CBC (INCL UDES DIFF/ PLT) hematocrit 40.2 % 38.5-5 0.0 normal Not Available [address], [address], 02/24/2024 08:20:36 02/23/20 24 02/24/2024 CBC (INCL UDES DIFF/ PLT) MCV 98.8 fL 80.0-1 00.0 normal Not Available [address], [address], 02/24/2024 08:20:36 02/23/20 24 02/24/2024 CBC (INCL UDES DIFF/ PLT) MCH 33.2 pg 27.0-3 3.0 high Not Available [facility] [address], [address], 02/24/2024 08:20:36 02/23/20 24 02/24/2024 CBC (INCL UDES DIFF/ PLT) MCHC 33.6 g/dL 32.0-3 6.0 normal Not Available [address], [address], 02/24/2024 08:20:36 02/23/20 24 02/24/2024 CBC (INCL UDES DIFF/ PLT) RDW 11.9 % 11.0-1 5.0 normal Not Available [address], [address], 02/24/2024 08:20:36 02/23/20 24 02/24/2024 CBC (INCL UDES DIFF/ PLT) platelet count 238 thous and/u L 140-40 0 normal Not Available [address], [address], 02/24/2024 08:20:36 02/23/20 24 02/24/2024 CBC (INCL UDES DIFF/ PLT) MPV 10.7 fL 7.5-12 .5 normal Not Available [address], [address], 02/24/2024 08:20:36 02/23/20 24 02/24/2024 CBC (INCL UDES DIFF/ PLT) absolute neutrophils 3459 cells /uL 1500-7 800 normal Not Available [facility] [address], [address], 02/24/2024 08:20:36 02/23/20 24 02/24/2024 CBC (INCL UDES DIFF/ PLT) absolute lymphocytes 1629 cells /uL 850-39 00 normal Not Available [address], [address], 02/24/2024 08:20:36 02/23/20 24 02/24/2024 CBC (INCL UDES DIFF/ PLT) absolute monocytes 506 cells /uL 200-95 0 normal Not Available [address], [address], 02/24/2024 08:20:36 02/23/20 24 02/24/2024 CBC (INCL UDES DIFF/ PLT) absolute eosinophils 476 cells /uL 15-500 normal Not Available [address], [address], 02/24/2024 08:20:36 02/23/20 24 02/24/2024 CBC (INCL UDES DIFF/ PLT) absolute basophils 31 cells /uL 0-200 normal Not Available [facility] [address], [address], 02/24/2024 08:20:36 02/23/20 24 02/24/2024 CBC (INCL UDES DIFF/ PLT) neutrophils 56.7 % normal Not Available [facility] [address], [address], 02/24/2024 08:20:36 02/23/20 24 02/24/2024 CBC (INCL UDES DIFF/ PLT) lymphocytes 26.7 % normal Not Available [facility] [address], [address], 02/24/2024 08:20:36 02/23/20 24 02/24/2024 CBC (INCL UDES DIFF/ PLT) monocytes 8.3 % normal Not Available [address], [address], 02/24/2024 08:20:36 02/23/20 24 02/24/2024 CBC (INCL UDES DIFF/ PLT) eosinophils 7.8 % normal Not Available [address], [address], 02/24/2024 08:20:36 02/23/20 24 02/24/2024 CBC (INCL UDES DIFF/ PLT) basophils 0.5 % normal Not Available [facility] [address], [address], 02/24/2024 08:20:36 02/23/20 24 02/24/2024 T4, FREE T4, free 1.0 NG/dL 0.8-1. 8 normal Not Available [address], [address], 02/24/2024 08:20:37 02/23/20 24 02/24/2024 TSH TSH 3.72 mIU/L 0.40-4 .50 normal Not Available [address], [address], 02/24/2024 08:20:38 09/13/20 24 09/13/2024 COVID -19, INFLU [place] A+B, PCR sars-cov-2 RNA(covid19) ,RT-PCR NEGATI VE This test has been autho rized by the FDA under an Emerg ency Use Autho rizat ion (EUA) for use by autho rized labor atori es. Negat hiren resul ts do not precl ude SARS- CoV-2 and shoul d not be used as the sole basis for treat ment or other patie nt manag ement decis ions. Test resul ts shoul d be corre lated with the clini salome histo ry, epide miolo gical data, and other data avail able to the clini edilberto evalu ating the patie nt. Elissa martinez the Fact Sheet s for healt h care provi ders and patie nts at the [facility] lina: https ://ww w.fda .gov/ media /4626 12/do wnloa d https ://ww w.fda .gov/ media /1301 13/do wnloa d Metho dolog y: Real- Time RT-PC R Not Available [facility] (Lab) [address] [place], [address], 09/13/2024 14:20:19 09/13/20 24 09/13/2024 COVID -19, INFLU [place] A+B, PCR influenza A RNA, RT-PCR POSITI VE abnormal Not Available [facility] (Lab) [address] [place], [address], 09/13/2024 14:20:19 09/13/20 24 09/13/2024 COVID -19, INFLU [place] A+B, PCR influenza B RNA, RT-PCR NEGATI VE abnormal Not Available [facility] (Lab) [address] [place], [address], 09/13/2024 14:20:19 09/27/19 25 09/28/2024 LIPID PANEL , STAND SUNNY cholesterol, total 161 mg/dL <200 normal Not Available [employer] [address], [address], 09/28/2024 06:48:20 09/27/19 25 09/28/2024 LIPID PANEL , STAND SUNNY HDL cholesterol 57 mg/dL > or = 40 normal Not Available [facility] [address] [place], [address], 09/28/2024 06:48:20 09/27/19 25 09/28/2024 LIPID PANEL , STAND SUNNY triglyceride s 64 mg/dL <150 normal Not Available [employer] [address], [address], 09/28/2024 06:48:20 09/27/19 25 09/28/2024 LIPID PANEL , STAND SUNNY LDL-choleste rol 89 mg/dL _(salome c) normal Refer ence range : <100 Robson able range <100 mg/dL for prima ry preve ntion ; <70 mg/dL for patie nts with CHD or diabe tic patie nts with > or = 2 CHD risk facto rs. LDL-C is now calcu lated using the Joselyn n-Hop kins calcu latio n, which is a valid ated novel metho d provi ding steven r accur acy than the Fried lars equat ion in the estim ation of LDL-C . Joselyn cespedes SS et al. PAMELA. 2013; 310(1 9): 2061- 2068 (http ://ed ucati on.Qu [employer]. com/f aq/FA Q164) Not Available [facility] [address] [place], [address], 09/28/2024 06:48:20 09/27/19 25 09/28/2024 LIPID PANEL , STAND SUNNY chol/HDLC ratio 2.8 (calc ) <5.0 normal Not Available [facility] [address] [place], [address], 09/28/2024 06:48:20 09/27/1909/28/2024 LIPID PANEL , STAND SUNNY non HDL cholesterol 104 mg/dL _(salome c) <130 normal For patie nts with diabe lina plus 1 major ASCVD risk facto r, treat ing to a non-H DL-C goal of <100 mg/dL (LDL- C of <70 mg/dL ) is kev lewis c optio n. Not Available [facility] [address] [place], [address], 09/28/2024 06:48:20 09/27/19 25 09/28/2024 COMPR EHENS HIREN METAB OLIC PANEL glucose 95 mg/dL 65-99 normal Fasti ng refer ence inter monica Not Available [address], [address], 09/28/2024 06:48:21 09/27/19 25 09/28/2024 COMPR EHENS HIREN METAB OLIC PANEL urea nitrogen (BUN) 15 mg/dL 7-25 normal Not Available [address], [address], 09/28/2024 06:48:21 09/27/19 25 09/28/2024 COMPR EHENS HIREN METAB OLIC PANEL creatinine 1.07 mg/dL 0.70-1 .28 normal Not Available [address], [address], 09/28/2024 06:48:21 09/27/19 25 09/28/2024 COMPR EHENS HIREN METAB OLIC PANEL eGFR 74 mL/mi n/1.7 3m2 > or = 60 normal Not Available [address], [address], 09/28/2024 06:48:21 09/27/1909/28/2024 COMPR EHENS HIREN METAB OLIC PANEL BUN/creatini ne ratio SEE NOTE: (calc ) 6-22 Not Repor brennon: BUN and Creat inine are withi n refer ence range . Not Available [address], [address], 09/28/2024 06:48:21 09/27/1909/28/2024 COMPR EHENS HIREN METAB OLIC PANEL sodium 141 mmol/ L 135-14 6 normal Not Available [address], [address], 09/28/2024 06:48:21 09/27/19 25 09/28/2024 COMPR EHENS HIREN METAB OLIC PANEL potassium 5.0 mmol/ L 3.5-5. 3 normal Not Available [address] [place], [address], 09/28/2024 06:48:21 09/27/19 25 09/28/2024 COMPR EHENS HIREN METAB OLIC PANEL chloride 105 mmol/ L 98-110 normal Not Available [address], [address], 09/28/2024 06:48:21 09/27/1909/28/2024 COMPR EHENS HIREN METAB OLIC PANEL carbon dioxide 32 mmol/ L 20-32 normal Not Available [facility] [address], [address], 09/28/2024 06:48:21 09/27/19 25 09/28/2024 COMPR EHENS HIREN METAB OLIC PANEL calcium 9.3 mg/dL 8.6-10 .3 normal Not Available [address], [address], 09/28/2024 06:48:21 09/27/19 25 09/28/2024 COMPR EHENS HIREN METAB OLIC PANEL protein, total 6.2 g/dL 6.1-8. 1 normal Not Available [address], [address], 09/28/2024 06:48:21 09/27/1909/28/2024 COMPR EHENS HIREN METAB OLIC PANEL albumin 4.2 g/dL 3.6-5. 1 normal Not Available [address], [address], 09/28/2024 06:48:21 09/27/1909/28/2024 COMPR EHENS HIREN METAB OLIC PANEL globulin 2.0 g/dL_ (calc ) 1.9-3. 7 normal Not Available [facility] [address], [address], 09/28/2024 06:48:21 09/27/19 25 09/28/2024 COMPR EHENS HIREN METAB OLIC PANEL albumin/glob ulin ratio 2.1 (calc ) 1.0-2. 5 normal Not Available [address], [address], 09/28/2024 06:48:21 09/27/19 25 09/28/2024 COMPR EHENS HIREN METAB OLIC PANEL bilirubin, total 0.9 mg/dL 0.2-1. 2 normal Not Available [address], [address], 09/28/2024 06:48:21 09/27/1909/28/2024 COMPR EHENS HIREN METAB OLIC PANEL alkaline phosphatase 63 U/L 35-144 normal Not Available [address], [address], 09/28/2024 06:48:21 09/27/19 25 09/28/2024 COMPR EHENS HIREN METAB OLIC PANEL AST 22 U/L 10-35 normal Not Available [address], [address], 09/28/2024 06:48:21 09/27/19 25 09/28/2024 COMPR EHENS HIREN METAB OLIC PANEL ALT 23 U/L 9-46 normal Not Available [address], [address], 09/28/2024 06:48:21 09/27/1909/28/2024 CBC (INCL UDES DIFF/ PLT) white blood cell count 6.7 thous and/u L 3.8-10 .8 normal Not Available [address], [address], 09/28/2024 06:48:23 09/27/19 25 09/28/2024 CBC (INCL UDES DIFF/ PLT) red blood cell count 4.23 brandon on/uL 4.20-5 .80 normal Not Available [address], [address], 09/28/2024 06:48:23 09/27/1909/28/2024 CBC (INCL UDES DIFF/ PLT) hemoglobin 13.7 g/dL 13.2-1 7.1 normal Not Available [address], [address], 09/28/2024 06:48:23 09/27/1909/28/2024 CBC (INCL UDES DIFF/ PLT) hematocrit 42.0 % 38.5-5 0.0 normal Not Available [address], [address], 09/28/2024 06:48:23 09/27/1909/28/2024 CBC (INCL UDES DIFF/ PLT) MCV 99.3 fL 80.0-1 00.0 normal Not Available [address], [address], 09/28/2024 06:48:23 09/27/1909/28/2024 CBC (INCL UDES DIFF/ PLT) MCH 32.4 pg 27.0-3 3.0 normal Not Available [address], [address], 09/28/2024 06:48:23 09/27/1909/28/2024 CBC (INCL UDES DIFF/ PLT) MCHC 32.6 g/dL 32.0-3 6.0 normal For adult s, a sligh t decre ase in the calcu lated MCHC value (in the range of 30 to 32 g/dL) is most likel y not clini rubin andrew t; anil er, it shoul d be inter prete d with cauti on [place] [facility] [place] with other red cell jayna eters and the patie nt's clini salome condi tion. Not Available [address], [address], 09/28/2024 06:48:23 09/27/19 25 09/28/2024 CBC (INCL UDES DIFF/ PLT) RDW 11.8 % 11.0-1 5.0 normal Not Available [address], [address], 09/28/2024 06:48:23 09/27/19 25 09/28/2024 CBC (INCL UDES DIFF/ PLT) platelet count 301 thous and/u L 140-40 0 normal Not Available [address], [address], 09/28/2024 06:48:23 09/27/1909/28/2024 CBC (INCL UDES DIFF/ PLT) MPV 10.3 fL 7.5-12 .5 normal Not Available [address], [address], 09/28/2024 06:48:23 09/27/19 25 09/28/2024 CBC (INCL UDES DIFF/ PLT) absolute neutrophils 3678 cells /uL 1500-7 800 normal Not Available [address], [address], 09/28/2024 06:48:23 09/27/19 25 09/28/2024 CBC (INCL UDES DIFF/ PLT) absolute lymphocytes 2104 cells /uL 850-39 00 normal Not Available [address], [address], 09/28/2024 06:48:23 09/27/19 25 09/28/2024 CBC (INCL UDES DIFF/ PLT) absolute monocytes 697 cells /uL 200-95 0 normal Not Available [address], [address], 09/28/2024 06:48:23 09/27/19 25 09/28/2024 CBC (INCL UDES DIFF/ PLT) absolute eosinophils 201 cells /uL 15-500 normal Not Available [facility] [address], [address], 09/28/2024 06:48:23 09/27/19 25 09/28/2024 CBC (INCL UDES DIFF/ PLT) absolute basophils 20 cells /uL 0-200 normal Not Available [address], [address], 09/28/2024 06:48:23 09/27/19 25 09/28/2024 CBC (INCL UDES DIFF/ PLT) neutrophils 54.9 % normal Not Available [facility] [address], [address], 09/28/2024 06:48:23 09/27/1909/28/2024 CBC (INCL UDES DIFF/ PLT) lymphocytes 31.4 % normal Not Available [address], [address], 09/28/2024 06:48:23 09/27/19 25 09/28/2024 CBC (INCL UDES DIFF/ PLT) monocytes 10.4 % normal Not Available [facility] [address], [address], 09/28/2024 06:48:23 09/27/1909/28/2024 CBC (INCL UDES DIFF/ PLT) eosinophils 3.0 % normal Not Available [facility] [address], [address], 09/28/2024 06:48:23 09/27/1909/28/2024 CBC (INCL UDES DIFF/ PLT) basophils 0.3 % normal Not Available [facility] [address], [address], 09/28/2024 06:48:23 09/27/19 25 09/28/2024 T4, FREE T4, free 1.1 NG/dL 0.8-1. 8 normal Not Available [facility] [address] [place], [address], 09/28/2024 06:48:24 09/27/19 25 09/28/2024 TSH TSH 2.25 mIU/L 0.40-4 .50 normal Not Available [facility] [address] [place], [address], 09/28/2024 06:48:25 09/27/19 25 09/28/2024 PSA, TOTAL PSA, total 0.53 NG/mL < or = 4.00 normal The total PSA value from this assay syste m is stand ardiz ed again st the WHO stand sunny. The test resul t will be appro ximat zan 20% lower when moises red to the equim olar- stand ardiz ed total PSA (Rasheed man Coult er). Moises rison of seria l PSA resul ts shoul d be inter prete d with this fact in mind. This test was perfo rmed using the Chilltime chemi lumin escen t metho d. Value s obtai shirley from diffe rent assay metho ds canno t be used inter ta eably . PSA level s, regar dless of value , shoul d not be inter prete d as absol solomon evide nce of the prese nce or absen ce of disea se. Not Available [facility] [address] , [place], [address], 09/28/2024 06:48:26 08/30/20 24 XR, knee No observ ation record ed. [email or web address] [facility] [place] [address], [place], [address], 08/30/2024 13:45:48 07/24/20 25 07/24/2025 XR, chest , 1 view No observ ation record ed. [email or web address], [place], [address], 07/24/2025 14:19:11 Result Notes None recorded. Problems Name Problem SNOMED Code Status Onset Date Resolution Date Notes Provider Name and Address Organization Details Recorded Time Benign prostatic hyperplasi a without outflow obstructio n 827093739 Active Not Available [facility] 3 06:56:47 Depressive disorder 31570151 Active Not Available [facility] 3 06:56:47 Family history of malignant neoplasm of gastrointe stinal tract 541281892 Active Not Available [facility] 3 06:56:48 Left inguinal pain 3431501542919 9104 Active 2019 Not Available [facility] 3 06:56:47 Pure hyperchole sterolemia 498237318 Active 2022 Alonzo Flores MD [address], [place], [address] , [facility] 3 15:40:06 Sleep apnea 79553715 Active 2023 Alonzo Flores MD [address], [address], [place], [address] , [facility] 4 17:27:21 Pain of right knee joint 3562169301336 00 Active 2023 Alonzo Flores MD [address], [address], [place], [address] , [facility] 4 12:08:40 Disorder of prostate 36878271 Active 2023 Alonzo Flores MD [address], [address], [place], [address] , [facility] 4 12:13:05 Prepatella r bursitis 19337563 Active 2023 Delilah Snow null, [place] - [facility] 4 13:29:49 Fever 207911747 Active 2023 Beatrice Louis CMA null, [place] - [facility] 4 11:10:20 Influenza 7347681 Active 2023 Alonzo Flores MD [address], [address], [place], [address] , [facility] [employer] [facility] 4 14:23:04 Anxiety 56913876 Active 2024 Alonzo Flores MD [address], [facility] [address], [place], [address] , [facility] [employer] [facility] 5 12:18:54 Problem Notes None recorded. Procedures Surgical History Date Name Laterality Status Provider Name and Address Organization Details Recorded Time Medicare Wellness CPT Code, subsequent completed Genet Nobles RN [facility] [employer] 10/05/2023 17:14:02 Imaging Results None recorded. Procedure Notes None recorded. Medical Equipment None Reported. Allergies No known drug allergies Medications Name Sig Start Date Stop Date Status Note LastModified by Organization Details LastModified Time amoxicillin 500 mg capsule Take 1 capsule 3 times a day by oral route for 10 days. 06/09 completed Not Available Not Available Not Available prednisone 10 mg tablet active Not Available Not Available Not Available venlafaxine ER 75 mg capsule,ext ended release 24 hr TAKE ONE CAPSULE BY MOUTH EVERY DAY 06/09 completed Not Available Not Available Not Available doxycycline hyclate 100 mg capsule 03/10 completed Not Available Not Available Not Available atorvastati n 20 mg tablet TAKE 1 TABLET EVERY DAY 2024 active Not Available Not Available Not Avai lable benzonatate 200 mg capsule Take 1 capsule 3 times a day by oral route. 08/01 completed Not Available Not Available Not Available hydrochloro thiazide 50 mg tablet Take 1 tablet every day by oral route. 12/07 completed Not Available Not Available Not Available hydrocodone 5 mg-acetamin ophen 325 mg tablet TAKE 1 TABLET BY MOUTH EVERY 6 HOURS NEEDED FOR PAIN 03/17 completed Not Available Not Available Not Available Levaquin 750 mg tablet Take 1 tablet every day by oral route for 10 days. 12/07 completed Not Available Not Available Not Available bupivacaine HCl 0.5 % (5 mg/mL) injection solution Take 15 mg by injection route. 2023 active Not Available Not Available Not Avai lable aspirin 81 mg tablet,livia yed release Take 1 tablet every day by oral route. 03/16 completed Not Available Not Available Not Available prednisone 10 mg tablets in a dose pack Take 1 tab by mouth, 3 times a day for 3 daysTake 1 tab by mouth 2 times a day for 2 daysTake 1 tab by mouth once a day for 1 day 2023 active Not Available Not Available Not Avai lable lorazepam 0.5 mg tablet TAKE 1 TABLET BY MOUTH THREE TIMES DAILY NEEDED FOR ANXIETY active Not Available Not Available No t Available tamsulosin 0.4 mg capsule TAKE 1 CAPSULE BY MOUTH ONCE DAILY FOR 14 DAYS 03/17 completed Not Available Not Available Not Available oseltamivir 75 mg capsule Take 1 capsule twice a day by oral route for 5 days. active Not Available Not Available No t Available mupirocin 2 % topical ointment APPLY SPARINGLY TO THE AFFECTED AREA THREE TIMES DAILY FOR INFECTION 03/16 completed Not Available Not Available Not Available [place] 10 mg-325 mg tablet 1-2 tablets every 4-6 hours prn 12/07 completed Not Available Not Available Not Available Levaquin 500 mg tablet Take 1 tablet every 24 hours by oral route. 08/01 completed Not Available Not Available Not Available Viagra 100 mg tablet Take 1 tablet(s) an hour before sexually encounter 06/09 completed Not Available Not Available Not Available escitalopra m 10 mg tablet TAKE 1 TABLET EVERY DAY 2024 active Not Available Not Available Not Avai lable Prepopik 10 mg-3.5 gram-12 gram oral powder packet Take 1 packet every day by oral route as directed. 12/07 completed Not Available Not Available Not Available Linzess 72 mcg capsule Take 1 capsule every day by oral route. 12/07 completed Not Available Not Available Not Available Vitals Date Recorded Body height Body mass index (BMI) Body weight Heart rate Body temperature Oxygen saturation Oxygen saturation in Arterial blood by Pulse oximetry Systolic And Diastolic Provider Name and Address Organization Details Last Updated DateTime 4 175.26 cm 27.2 kg/m2 28471.7 9 g 72 /min 97 [degF] 97 % 97 % 120/68 mm[Hg] Dorota LITTLEJOHN [facility] [employer] 4 17:10:23 Date Recorded Pain severity - 0-10 verbal numeric rating [Score] - Reported Provider Name and Address Organization Details Last Updated DateTime 10/05/2023 0 Genet Nobles RN [facility] 10/05/2023 17:14:18 Date Recorded Body height Body mass index (BMI) Body weight Heart rate Body temperature Oxygen saturation Oxygen saturation in Arterial blood by Pulse oximetry Systolic And Diastolic Provider Name and Address Organization Details Last Updated DateTime 175.26 cm 26.4 kg/m2 59731.0 3 g 72 /min 97.5 [degF] 96 % 96 % 122/74 mm[Hg] Deanna Lawrence Leroy [facility] 4 16:46:53 Date Recorded Body height Body weight Heart rate Body temperature Oxygen saturation Oxygen saturation in Arterial blood by Pulse oximetry Systolic And Diastolic Provider Name and Address Organization Details Last Updated DateTime 175.26 cm 84361.5 5 g 97 /min 97 [degF] 98 % 98 % 140/70 mm[Hg] Deanna Lawrence Leroy [facility] 11:52:38 Date Recorded Body height Body mass index (BMI) Body weight Provider Name and Address Organization Details Last Updated DateTime 08/30/2024 175.26 cm 26.6 kg/m2 34586.63 g [facility]30[facility] 13:12:21 Date Recorded Body height Body mass index (BMI) Body weight Provider Name and Address Organization Details Last Updated DateTime 09/06/2024 175.26 cm 26.6 kg/m2 97076.63 [facility] 13:34:48 Social History Question Answer Notes LastModified by Organizat ion Details LastModified Time Tobacco Smoking Status Never Smoker Not Available [facility] 11/24/2022 06:54:06 Do You Have An Advance Directive? Yes [id number] Information not available 11/24/2022 Are You Blind Or Do You Have Difficulty Seeing? No MIGRATION.04534 57163 Information not available 11/24/2022 Are You Deaf Or Do You Have Serious Difficulty Hearing? Yes Has Hearing Aids MIGRATION.45156 31573 Information not available 11/24/2022 What Type Of Diet Are You Following? REGULAR MIGRATION.75069 89987 Information not available 11/24/2022 Have There Been Any Changes To Your Family Or Social Situation? No MIGRATION.86496 72407 Information not available 11/24/2022 What Is The Fluoride Status Of Your Home? Unknown MIGRATION.71289 97098 Information not available 11/24/2022 Are There Any Guns Present In Your Home? No MIGRATION.56073 16567 Information not available 11/24/2022 Do You Use Insect Repellent Routinely? No MIGRATION.30911 [id number] Information not available 11/24/2022 Where Do You Live? [place]House MIGRATION.74765 62664 Information not available 11/24/2022 Guns Present In The Home? Yes [email or web address] Information not available 10/05/2023 Are You Able To Care For Yourself? Yes Information not available 10/05/2023 Are You Blind Or Do Yo Have Difficulty Seeing? No [email or web address] Information not available 10/05/2023 Are You Deaf Or Do You Have Serious Difficulty Hearing? Yes [email or web address] Information not available 10/05/2023 Live Alone Of With Others? With Others [email or web address] Information not available 10/05/2023 Do You Have A Medical Power Of Horse Groomer? Yes MIGRATION.44116 [id number] Information not available 11/24/2022 What Was The Date Of Your Most Recent Tobacco Screening? 10/05/2023 [email or web address] Information not available 10/05/2023 Do You Have Any Pets? No MIGRATION.78483 97881 Information not available 11/24/2022 What Is Your Relationship Status? MIGRATION.20268 66458 Information not available 11/24/2022 Do You Use Your Seat Belt Or Car Seat Routinely? Yes Information not available 10/05/2023 Do You Have Smoke And Carbon Monoxide Detectors In Your Home? Yes MIGRATION.18719 39364 Information not available 11/24/2022 Are You Passively Exposed To Smoke? No MIGRATION.38223 83372 Information not available 11/24/2022 Are There Any Smokers In Your House? No MIGRATION.30799 72915 Information not available 11/24/2022 Do You Use Sunscreen Routinely? Yes MIGRATION.08928 59130 Information not available 11/24/2022 Have You Recently Traveled Abroad? No MIGRATION.44616 64725 Information not available 11/24/2022 Do You Have Difficulty Walking Or Climbing Stairs? No MIGRATION.25281 78430 Information not available 11/24/2022 Do You Have Any Dietary Restrictions? No MIGRATION.98922 04954 Information not available 11/24/2022 Sex: Unknown Functional Status Question Answer Note LastModified by Organizat ion Details LastModified Time What is your level of alcohol consumption? None MIGRATION.[id number] 8958 Information not available 11/24/2022 Do you have transportation difficulties? No MIGRATION.889752 3612 Information not available 11/24/2022 Are you able to walk independently without assistance or assistive devices? YESWOREST MIGRATION.383265 1645 Information not available 11/24/2022 Do you have difficulty doing errands alone? No MIGRATION.412479 9786 Information not available 11/24/2022 Are you able to care for yourself independently? 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 No MIGRATION.463667 6604 Information not available 11/24/2022 What is your exercise level? Moderate MIGRATION.078410 4558 Information not available 11/24/2022 Mental Status Question Answer Note LastModified by Organizat ion Details LastModified Time Do you have difficulty concentrating, remembering or making decisions? No MIGRATION.[id number] 6 Information not available 11/24/2022 Family History Nothing Reported Notes:Mother 90 yea rs old recent TRAY CASTING MACHINE OPERATOR hemorrhage Father 59 years old from [place] 5 Brothers 5 Living one has arteriosclerotic heart disease and CABG, CVA and some multi-infarct dementia. Medical History Condition Response NERVE DISEASE N BLINDNESS N RHEUMATIC FEVER N KIDNEY STONES N BLADDER PROBLEMS N MRSA N OTHER # 1 N POLIO N LUNG DISEASE/DISORDER N COPD N RADIATION / CHEMOTHERAPY N Other # 2 N BLOOD DISEASES N SURGERY N EAR OR HEARING PROBLEMS N MUMPS N DEPRESSION (INCLUDING POST ) N BOWEL PROBLEMS N STROKE/TIA N ULCERS N BENIGN PROSTATIC HYPERPLASIA N MEASLES N MYOCARDIAL INFARCTION N OBESITY N GERD/NAUSEA N ANEURYSM N URINARY/BLADDER/KIDNEY PROBLEMS N CORONARY ARTERY DISEASE (CAD) N ADDICTION CONCERNS N Impotence Y ENDOMETRIOSIS N USE OF BLOOD THINNERS N SKIN PROBLEMS N GASTROINTESTINAL DISORDER N PERIPHERAL VASCULAR DISEASE N MUSCLE,JOINT OR BONE PROBLEMS N GASTROINTESTINAL BLEEDING N BLOOD CLOTS N ASTHMA N CATARACTS N ERECTILE DYSFUNCTION N VARICOSITIES N GI PROBLEMS N Low Testosterone N INFERTILITY N AIDS/HIV N CHEMOTHERAPY / RADIATION N LIVER DISEASE N MALE HYPOGONADISM N HYPERTENSION N Deficiency N ANXIETY DISORDER N BLOOD TRANSFUSION N ANEMIA/BLOOD DISORDER N CHRONIC EAR INFECTIONS N BRONCHITIS N TUBERCULOSIS N GLAUCOMA N FOOT PROBLEM N DIVERTICULITIS N SLEEP APNEA N CHICKENPOX N INFECTIOUS DISEASE N PROSTATE Y HEART ARRHYTHMIA N INSOMNIA N HIGH CHOLESTEROL / HYPERLIPIDEMIA N HYPERTHYROIDISM N EYE PROBLEMS N NEUROLOGICAL PROBLEMS N EDEMA N CHRONIC PAIN SYNDROME N HYPOTHYROIDISM N CONSTIPATION N CAROTID BLOCKAGE N BACK / NECK PROBLEMS N HAVE YOU BEEN HOSPITALIZED OR SEEN IN [facility] IN THE PAST YEAR ? N ATHEROSCLEROSIS N BREAST PROBLEMS N DIALYSIS N ECZEMA N OSTEOPOROSIS N ARTHRITIS N NO SIGNIFICANT PAST MEDICAL HISTORY N APPENDICITIS N DIABETES, TYPE N BAD TEETH N ENT N HEARTBURN / REFLUX N AUTISM SPECTRUM DISORDER (ASD) N HEPATITIS / LIVER DISEASE N GOUT N SLEEP DISORDER N ALZHEIMER'S DISEASE N Brain Problems N HERPES N DEMENTIA N SEIZURES/EPILEPSY N HEADACHES/MIGRAINES N VASCULAR DISEASE N PACEMAKER N Blood Disorder N DIZZINESS N KIDNEY DISEASE N HEART DISEASE/HEART PROBLEMS N MULTIPLE SCLEROSIS N CARDIAC ARRHYTHMIA N CANCER: SPECIFY N Gall Stones N ATRIAL FIBRILLATION N PULMONARY EMBOLISM N AUTOIMMUNE DISEASE N Immunizations Vaccine Type Date Status Note Provider Nam e and Address Organization Details Recorded Time SARS-COV-2 (COVID-19) vaccine, UNSPECIFIED 1 completed Not Available [facility] 11/24/2022 07:01:16 SARS-COV-2 (COVID-19) vaccine, UNSPECIFIED 1 completed Not Available [facility] 11/24/2022 07:01:16 SARS-COV-2 (COVID-19) vaccine, UNSPECIFIED 1 completed Not Available [facility] 11/24/2022 07:01:16 pneumococcal polysaccharide PPV23 2 completed Not Available [facility] 11/24/2022 07:01:17 Influenza, high-dose, quadrivalent, PF 2 completed Not Available [facility] 11/24/2022 07:01:17 Influenza, high-dose, quadrivalent, PF 0 completed Not Available [facility] 11/24/2022 07:01:17 Pneumococcal conjugate PCV 13 0 completed Not Available [facility] 11/24/2022 07:01:17 Past Encounters Encounter ID Performer Location Encounter Start Date Encounter Closed Date Diagnosis/Indication Diagnosis SNOMED-CT Code Diagnosis ICD10 Code Diagnosis IMO Codes Diagnosis Note [id number] Alonzo Flores MD [facility] [place] [address] [facility] [address] , [place] [address] 03/10/2021 00:00:00 03/10/2021 16:59:43 [id number] Alonzo Flores MD [facility] [place] [address] [facility] [address] , [place] [address] 03/16/2022 00:00:00 03/16/2022 16:27:28 [id number] Alonzo Flores MD [facility] [place] [address] [facility] , [place] [address] 09/14/2022 00:00:00 09/14/2022 17:08:33 [id number] Alonzo Flores MD [facility] Internal Med [address] [address] 03/17/2023 10:29:43 03/17/2023 10:40:26 Pure hypercholesterolemia 970519245 E78.00 Depressive disorder 3548 9007 F32.9 [id number] [address] [facility] Internal Med [address] [address] 10/05/2023 16:47:56 10/05/2023 17:36:11 Adult health examination 402815641 Z00.00 Screening for disorder 057985883 Z13.9 Pure hypercholesterolemia 066260766 E78.00 Depressive disorder 3548 9007 F32.9 Sleep apnea 97185706 G47 .30 [id number] Alonzo Flores MD [facility] Internal [facility] [place] [address] [address] 04/04/2024 16:42:50 04/04/2024 17:14:12 Depressive disorder 84669970 F32.9 Benign pro static hyperplasia without outflow obstruction 956436537 N40.0 Pure hypercholesterolemia 367358844 E78.00 [id number] Alonzo Flores MD [facility] Internal [facility] [address] [address] [place] [address] 08/29/2024 11:47:40 08/29/2024 12:20:18 Pure hypercholesterolemia 330326641 E78.00 Depressive disorder 3548 9007 F32.9 Benign pro static hyperplasia without outflow obstruction 121355798 N40.0 Family his tory of malignant neoplasm of gastrointestinal tract 859848981 Z80.0 Pain of ri ght knee joint 0140942277 05909 M25.561 Disorder of prostate 302 72114 N42.9 [id number] Floyd [address] [facility] [place] [address] [place] [address] 08/30/2024 12:51:35 08/30/2024 13:39:39 Pain of right knee joint 1477758398 28078 M25.561 Prepatellar bursitis 170 33430 M70.[id number] [facility] [place] [address] [place] [address] 09/06/2024 13:31:51 09/06/2024 14:14:03 Prepatellar bursitis 18180455 M70.41 Pain of ri ght knee joint 3805477996 54170 M25.561 Health Concerns Section Related Observation LastModified by Organization Detai ls LastModified Time None Recorded Concern Status LastModified by Organization Details LastModified Time None Recorded Advance Directives Directive Y: Payers Insurance Date Sequence Insurance Name Policy Number Policy Madison Covered Member ID Madison Member ID Guarantor Name 09/05/2024 1 [employer] (MEDICARE REPLACEMENT/A DVANTAGE - HMO) Lei Vines [id number] Lei Vines Notes Date Note Type Note Provider Name and Address Organization Details Recorded Time 10/05/2023 text/html Patient Name: Lei VinesDate Of Service: Tuesday ( 10.05.2023 ): 1955 Age: 68 There has been approximately a 3 lb weight gain since 03/17/2023. This represents approximately a 1.7% change in weight. Weight change attributable to lifestyle changes. Vital Signs:Blood Pressure: Sitting Rt. Arm 120/68Pulse: Sitting 72 /min and RegularRespiratory Rate: 12Height 69 in or 1.8 mWeight 184.5 lb or 83.7 kgBMI 27.2Temperature: 97 F or 36.1 CPulse Oximetry: 97 % at rest on no oxygen Chief Complaint: Addressed in HPI Problems or conditions discussed in the HPI were the only ones reviewed during the encounter.Only social and family history addressed in the HPI were reviewed during this encounter. A significant, separate E/M service was performed to evaluate the current and new problems. Attendant(s): NoneConstitutional and Systemic Symptoms:none Medication Reconciliation: from medication list. History of Present Illness Reviewed the findings of the preventative health visit. Addressed all areas with the patient, patient's family or caregivers. Preventative examinations and testing immunizations - vaccinations, colonic neoplasm screening and PSA all reviewed and ordered where patient was amenable to the recommendations. Cognitive function was normal. Depression addressed and where necessary medications were adjusted or instituted. End of life and living will briefly discussed with patient and where these can be filled out and legally executed. Other blood and imaging studies were ordered if considered necessary. Other recommendations may be found in the encounter note. #1. Type II Hypercholesterolaemia: Currently taking medication and tolerating well. No interval complaints of any muscle pain or arthralgia. No significant liver changes with medications. Last lipid panel: no testing done recently. Therapy reviewed regarding treatment of cholesterol management and include diet and Atorvastatin Calcium. #2. Hx of depression currently stable. Pharmacological treatment : Escitalopram . Suicidal thoughts or ideas: None Loss of appetite: No Sleep Disturbance: No Hallucinations: No Is currently seeing no one. Discussed possibility of decreasing and weaning off medication. Feels that current regimen is working fine and wishes not to change the current treatment regimen. No contraindication to continue current therapy. #3. Possible Sleep Apnea: Has physical characteristics and sleeping habits possible consistent with sleep apnea. Has a narrow posterior pharynx. Snores: nightly. Feels extremely fatigued. Dreaming: infrequencyEpworth Sleepiness ScaleSitting and ReadinWatching TV: 2Sitting Inactive in a Public Place: 1Passenger in a Car: 2Lying Down in Afternoon: 2Sitting and Talking to someone: 1Sitting quietly after lunch: 2In a car while stopped or drivinScore Interpretation: 10-15 Abnormally sleepySTOP-BANGSnores Loudly: yesTired or sleepy during daytime: yesObserved to stop breathing during sleep: yesPressure - HTN: noBMI > 35: noAge > 50: yesNeck Circumference > 15 inches: noGender: Male: : yesMedication List Reviewed and Reconciled 10/05/2023torvastatin Calcium 20 MG TABLET One DailyEscitalopram 10 MG (CAPSULE - ORAL) One DailyVaccination and Cdyevfauoznz4821-67 Dpqejsodo1030-86 Iklyesrce2972-34 Covid Booster Apwgmmi5107-84 Covid Rtrxici3208-47 Prevnar 13 GcSurgical HistoryRt. Inguinal Hernia, Esophageal Dilatation, Ureteral stonePreventative Testing Confirmed by Our Yhqomsv1211/27/2022 ALBUMIN 4.2 G/DL N011/27/2022 PSA 0.53 NG/ML N006/15/2021 COLONOSCOPY ( 5 YEARS ) UPPER ENDOSCOPYSocial HistorySOCIAL HISTORY:Does not smoke cigarettes. Drinking Hx: 2 Cups of tea perday, < 6 cans of soft drinks per day.Exercise: WeeklySexual Hx: Sexually ActiveOccupation: AccountantFamily HistoryFAMILY HISTORY:Mother 90 years old recent TRAY CASTING MACHINE OPERATOR hemorrhageFather 59 years old from [place]5 Brothers 5 Living one has arteriosclerotic heart disease and CABG, CVA and some multi-infarct dementia. Alonzo Flores MD [address] [place] [address], [facility] [address], [place], [address], [facility] [employer] 10/05/2023 17:31:51 04/04/2024 text/html Patient Name: Lei Muro Of Service: Tuesday ( 04.04.2024 ): 1955 Age: 69 There has been approximately a 5.5 lb weight loss since 10/05/2023. This represents approximately a 3.0% change in weight. Weight change attributable to lifestyle changes. Vital Signs:Blood Pressure: Sitting Rt. Arm 122/74Pulse: Sitting 72 /min and RegularRespiratory Rate: 14Height 69 in or 1.8 mWeight 179 lb or 81.2 kgBMI 26.4Temperature: 97.5 F or 36.4 CPulse Oximetry: 96 % at rest on no oxygen Chief Complaint: Addressed in HPI Problems or conditions discussed in the HPI were the only ones reviewed during the encounter.Only social and family history addressed in the HPI were reviewed during this encounter. Attendant(s): NoneConstitutional and Systemic Symptoms:none Medication Reconciliation: from medication list. History of Present Illness #1. Type II Hypercholesterolaemia: Currently taking medication and tolerating well. No interval complaints of any muscle pain or arthralgia. No significant liver changes with medications. Last lipid panel: fair control. Therapy reviewed regarding treatment of cholesterol management and include diet and Atorvastatin Calcium. #2. Hx of depression currently stable. Pharmacological treatment : Escitalopram . Suicidal thoughts or ideas: None Loss of appetite: No Sleep Disturbance: No Hallucinations: No Is currently seeing no one. Discussed possibility of decreasing and weaning off medication. Feels that current regimen is working fine and wishes not to change the current treatment regimen. No contraindication to continue current therapy. #3. Hx of BPH currently stable. No change in strength or initiation of urinary stream. No post voiding problems. No hx of any fever or chills. Currently taking no medications. Active Medication ListAtorvastatin Calcium 20 MG TABLET One DailyEscitalopram 10 MG (CAPSULE - ORAL) One Daily Vaccination and Pxcjnedseqrr3280-26 Jbijaffqp1097-18 Walacgxjd2789-51 Covid Booster Hsjmrjp4641-95 Covid Wdquigb9713-81 Prevnar 13 Gc Surgical Azamczp7104-70 Rt. Inguinal Ihytdf8172-08 Esophageal Yfbasmhtbs3591-74 Ureteral stone Preventative Rsmanty1402/23/2024 ALBUMIN 4.2 G/DL N011/27/2022 PSA 0.53 NG/ML N006/15/2021 COLONOSCOPY ( 5 YEARS ) UPPER ENDOSCOPY Social HistorySOCIAL HISTORY:Does not smoke cigarettes. 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 TEST RESULT RANGE UNITSLIPID PANEL, STANDARD Date: 4CHOLESTEROL, TOTAL 171 <200 MG/DLHDL CHOLESTEROL 61 > OR = 40 MG/DLTRIGLYCERIDES 71 <150 MG/DLLDL-CHOLESTEROL 94 MG/DL (CALC)COMPREHENSIVE METABOLIC PANEL Date: 02/23/2024SODIUM 141 135-146 MMOL/LPOTASSIUM 4.7 3.5-5.3 MMOL/LGLUCOSE 92 65-99 MG/DLUREA NITROGEN (BUN) 15 7-25 MG/DLCREATININE 1.01 0.70-1.28 MG/DLEGFR 80 > OR = 60 ML/MIN/1.23I8XPBKVLMGM, TOTAL 0.8 0.2-1.2 MG/DLALKALINE PHOSPHATASE 63 35-144 U/LAST 26 10-35 U/LALT 21 9-46 U/LT4, FREE Date: 02/23/2024T4, FREE 1.0 0.8-1.8 NG/DLTSH Date: 02/23/2024TSH 3.72 0.40-4.50 MIU/LCBC (INCLUDES DIFF/PLT) Date: 02/23/2024WHITE BLOOD CELL COUNT 6.1 3.8-10.8 THOUSAND/ULHEMOGLOBIN 13.5 13.2-17.1 G/DLHEMATOCRIT 40.2 38.5-50.0 %PLATELET COUNT 238 140-400 THOUSAND/UL Alonzo Flores MD [address] [facility], [facility] [address], [place], [address], [facility] 04/04/2024 17:07:31 08/29/2024 text/html Patient Name: Lei VinesJackyte Of Service: Tuesday ( 08.29.2024 ): 1955 Age: 69 There has been approximately a 11 lb weight gain since 04/04/2024. This represents approximately a 6.1% change in weight. Weight change attributable to lifestyle changes. Vital Signs:Blood Pressure: Sitting Rt. Arm 140/70Pulse: Sitting 97 /min and RegularRespiratory Rate: 16Height 69 in or 1.8 mWeight 190 lb or 86.2 kgBMI 28.1Temperature: 97 F or 36.1 CPulse Oximetry: 98 % at rest on no oxygen Chief Complaint: Addressed in HPI Problems or conditions discussed in the HPI were the only ones reviewed during the encounter.Only social and family history addressed in the HPI were reviewed during this encounter. Attendant(s): NoneConstitutional and Systemic Symptoms:none Medication Reconciliation: from medication list. History of Present Illness #1. Essential Hypertension: Stage: Stage I Interval Neurological Complaints no headaches, dizziness, weakness, visual changes, ataxia, aphasia and apraxia. No shortness of breath, orthopnea or cardiovascular symptoms. No other symptoms related to end organ damage. Pressure has been under excellent control. Currently normal. No other end organ symptoms or findings. Therapy reviewed regarding management of hypertension and includes salt restriction. #2. Type II Hypercholesterolaemia: Currently taking medication and tolerating well. No interval complaints of any muscle pain or arthralgia. No significant liver changes with medications. Last lipid panel: fair control. Therapy reviewed regarding treatment of cholesterol management and include diet and Atorvastatin Calcium. #3. Hx of BPH currently stable. No change in strength or initiation of urinary stream. No post voiding problems. No hx of any fever or chills. Currently taking no medications. #4. Family history of neoplasm. Is not due for colonoscopy until next year. Is clinically doing well. There is no interval complaints any change in bowel habits or any signs or symptoms suggestive of any type of colonic malignancy.: #5. Pain discomfort right knee. Injured it several months ago. Has a persistent swelling over the kneecap. Is actually in no pain. But because of the persistent nature of the swelling will obtain radiographic studies and set up with orthopedics for further evaluation.: Active Medication ListAtorvastatin Calcium 20 MG TABLET One DailyEscitalopram 10 MG (CAPSULE - ORAL) One Daily Vaccination and Immunization( ) 2019- PREVNAR 13 GC(X) 2022-08 INFLUENZA( ) 2020- COVID MODERNA(X) 2021-06 COVID BOOSTER MODERNA( ) 2022-08 PNEUMOVAX Surgical Digeckn3644-40 Rt. Inguinal Uxpgdz8200-30 Esophageal Adugkzxiqv5014-20 Ureteral stone Preventative Testing( ) 02/23/2024 Albumin 4.2 G/DL N( ) 11/27/2022 PSA 0.53 NG/ML N 11/27/2024( ) 06/15/2021 Colonoscopy ( 5 Years ) 06/15/2026( ) 02/18/2011 Upper Endoscopy Social HistorySOCIAL HISTORY:Does not smoke cigarettes. 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 Alonzo Flores MD [address], [address], [place], [address], [employer] 08/29/2024 12:13:38 08/30/2024 text/html The patient is a 69-year-old male who comes in with a large fluid sac on the anterior right knee. He does not recall any recent trauma or injury states about 2 years ago he fell forward and landed on his kneecap but other than that he was doing just fine. Then a few days ago he noted he started getting some swelling over the anterior prepatellar region denies any fevers chills night sweats no constitutional symptoms no erythema heat or other signs of infection but does have a fairly large bursa sac. It is nontender he has no pain with activity he rides an exercise bike daily and is able to do this without any discomfort at all. Denies any knee joint pain bears full weight goes about his daily activities as tolerated. His was concerned about the growing fluid sac and convinced him to come in to be seen today. He denies any scrapes or puncture wounds no trauma. A new past medical history sheet was reviewed and signed on intake sheet of today's date drug allergies current medications family social history previous surgical history 10 point review of systems was reviewed and discussed in detail today with the patient. JOSE RAMON Chávez [address], [address], [place], [address], [employer] 08/30/2024 13:46:19 09/06/2024 text/html Patient returns for recheck of his right knee. I saw him 1 week ago we did an aspiration of his right knee prepatellar bursa. He states that he knows now why his knee flared up. He was on his knees on concrete trimming grass around the edge of the driveway with the spool cleaner hand. He then developed a prepatellar bursitis there was no erythema heat or signs of infection. He never had any pain but he was concerned about the fluid collection I was able to aspirate about 25 cc. He comes in today for recheck. Today he still has no pain everything looks good he has been using a compression Aaron wrap there is no erythema heat or signs of infection today. He is very comfortable it is not tender there is still some soft tissue thickening and swelling but I do not detect any significant fluid pocket today it appears that the aspiration did help along with the steroids. He comes in today for recheck. JOSE RAMON Chávez [address] [place] [address], [place] [address], [place], [address], [place] [facility] 09/06/2024 13:47:15
[2025-07-24] MEDS: LACTATED RINGERS 1,000 ML 150 ML IV CONT (13:37)
--- NOTE | 2025-07-24 13:54 | WPDANESEPPF ---
Anes - Initial Pre Proc Eval Procedure: Operation Date: 07/24/25 14:30 Proposed Procedures p Esophagogastroduodenoscopy for Food Bolus - Bernard Castro MD Date/Time: 07/24/25 13:54 Surgeon: Bernard Castro MD Pre Op Diagnosis: esophageal spasms Patient Data Age: 70 Gender: M Height: 1.75 m Weight: 79 kg Last Vital Signs Temp 97.7 F 07/24/25 13:29 Pulse 65 07/24/25 13:29 Resp 18 07/24/25 13:29 BP 129/76 07/24/25 13:29 Pulse Ox 95 07/24/25 13:29 O2 Del Method Room Air 07/24/25 13:29 Allergies Allergy/AdvReac Type Severity Reaction Status Date / Time No Known Allergies Allergy Verified 07/24/25 13:24 Home Medications ?Medication ?Instructions ?Recorded ?Confirmed ?Type escitalopram oxalate 10 mg tablet 10 mg PO DAILY 03/14/20 09/20/22 History cyanocobalamin (vitamin B-12) 1,000 mcg PO DAILY 04/04/20 09/20/22 History 1,000 mcg tablet multivitamin,jk-frea-blzwkqge 1 tablet PO DAILY 04/04/20 09/20/22 History (Complete Multivitamin tablet) saw palm 160 mg-vit E 100 1 tablet PO DAILY 04/04/20 09/20/22 History unit-selen 100 gqj-tkns-myscfn-pygeum tablet (Prostate Health) vitamins A,C,K-vqex-cwzslw 4,296 1 cap PO DAILY 06/05/21 09/20/22 History mcg-226 mg-90 mg capsule (PreserVision AREDS) Laboratory Tests 07/24/25 12:46 WBC 9.7 K/mm3 (4.5-10.0) RBC 4.27 L M/mm3 (4.6-6.20) Hgb 14.2 g/dL (14.0-18.0) Hct 40.6 L % (42.0-52.0) MCV 95.1 fl (80-100) MCH 33.3 pg (26-34) MCHC 35.0 g/dl (32-36) RDW 13.2 % (11.5-14.5) Plt Count 252 k/mm3 (150-375) MPV 9.3 fl (7.4-10.4) Immature Gran % (Auto) 0.3 % (0-0.5) Neut % (Auto) 76.2 H % (45.5-73.1) Lymph % (Auto) 15.2 L % (18.3-44.2) Claiborne % (Auto) 6.7 % (2.6-8.5) Eos % (Auto) 1.4 % (0-4.4) Baso % (Auto) 0.2 % (0.2-1.2) Lymph # (Auto) 1.48 K/mm3 (0.9-3.2) Claiborne # (Auto) 0.7 H K/mm3 (0.1-0.6) Eos # (Auto) 0.1 K/mm3 (0-0.3) Baso # (Auto) 0.0 K/mm3 (0.0-0.1) Abs Immat Gran (auto) 0.03 K/mm3 (0.00-0.031) Absolute Neuts (auto) 7.4 H K/mm3 (1.3-6.7) Absolute Nucleated RBC 0.000 K/mm3 (0.0-0.012) Nucleated RBC % 0.0 % (0.0-0.2) Sodium 138 mmol/L (137-145) Potassium 3.8 mmol/L (3.4-5.0) Chloride 105 mmol/L (98-107) Carbon Dioxide 25 mmol/L (22-30) Anion Gap 8 mmol/L (4-12) BUN 18 mg/dL (9-20) Creatinine 0.97 mg/dL (0.7-1.3) Estim Creat Clear Calc 61 ml/min Estimated GFR > 60 (59 - ) Glucose 97 mg/dL (65-110) Calcium 9.5 mg/dL (8.4-10.2) Total Bilirubin 1.7 H mg/dL (0.2-1.3) AST 38 U/L (17-59) ALT 26 U/L (6-50) Alkaline Phosphatase 82 U/L (38-126) Total Protein 7.3 g/dL (6.3-8.2) Albumin 4.5 g/dL (3.5-5.1) Patient hx anesthesia problems: none Family hx anesthesia problems: none Results Review: All pre-operative results and documents have been reviewed as part of the pre-operative evaluation. [facility] Past Medical History Medical History Anxiety Cataracts, both eyes maturing High cholesterol History of kidney stones Surgical History Surgical History History of colonoscopy with polypectomy (05/2021) Status post cystoscopy with ureteral stent placement (~2016) History of left inguinal hernia repair (04/10/20) H/O nephrolithotomy with removal of calculi (~2016) Family History Family History Father Carcinoma of colon Sibling Heart disease Cerebrovascular accident Unknown No problems noted. Grandparent Diabetes mellitus Tuberculosis Social History Social History Social History: The patient lives with his of 48 years. They have 1 daughter and 2 sons who are healthy. 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 He is a lifelong nonsmoker and does not drink alcohol. Code status: Full code Surrogate decision maker: Smoking status: Never smoker Alcohol intake: never Substance use: never Substance use type: does not use Lack of Transportation: No Lack of Food: Never True Current Housing: I Have Housing Concerned About Future Housing: No Difficulty Paying Gas/Electric Bills: No Difficulty Paying for Meds: No Currently Unemployed: No Education: Bachelor's Degree Difficulty w/ Childcare or Family Care: No Living arrangements: with family Spiritual care concerns: No Anes - Eval Final PreProcedure Day of Procedure 07/24/25 13:54 Patient weight: normal Lungs: normal air movement Airway: Mallampati scale class II Neurological: alert and oriented Last oral intake: >/= 8 hours ASA classification: II Emergent: yes Anesthetic plan: proceed Anesthesia type and monitoring: general ETT and standard monitoring Results Review: All pre-operative results and documents have been reviewed as part of the pre-operative evaluation. Pt w food impaction since last night, unable to eat without vomiting/not controlling secretions this morning. Typically active without cp or sob. Informed Consent: The patient's anesthetic plan and its attendant risks and benefits were discussed with the patient/family/POA. Questions were solicited and answers provided to the satisfaction of the patient/family/POA.
--- NOTE | 2025-07-24 14:13 | PM.HPGS ---
History of Present Illness History of Present Illness Consent: Risks, benefits, and alternatives have been discussed and questions answered. Patient agrees to proceed with procedure. Chief complaint: food bolus Narrative: Lei Vines Jr. is a 70 year old male with food bolus after had dinner, unable to even handle own secretions, glucagon in ER did not work, he had similar episodes but never required urgent EGD in fact never had one. Review of Systems Review of Systems: All systems reviewed & are unremarkable except as noted in HPI and below PMFSH Past Medical History Medical History Anxiety Cataracts, both eyes maturing High cholesterol History of kidney stones Surgical History Surgical History History of colonoscopy with polypectomy (05/2021) Status post cystoscopy with ureteral stent placement (~2016) History of left inguinal hernia repair (04/10/20) H/O nephrolithotomy with removal of calculi (~2016) Family History Family History Father Carcinoma of colon Sibling Heart disease Cerebrovascular accident Unknown No problems noted. Grandparent Diabetes mellitus Tuberculosis Social History Social History Social History: The patient lives with his of 48 years. They have 1 daughter and 2 sons who are healthy. 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 He is a lifelong nonsmoker and does not drink alcohol. Code status: Full code Surrogate decision maker: Smoking status: Never smoker Alcohol intake: never Substance use: never Substance use type: does not use Lack of Transportation: No Lack of Food: Never True Current Housing: I Have Housing Concerned About Future Housing: No Difficulty Paying Gas/Electric Bills: No Difficulty Paying for Meds: No Currently Unemployed: No Education: Bachelor's Degree Difficulty w/ Childcare or Family Care: No Living arrangements: with family Spiritual care concerns: No Meds Home Medications and Allergies Home Medications ?Medication ?Instructions ?Recorded ?Confirmed ?Type escitalopram oxalate 10 mg tablet 10 mg PO DAILY 03/14/20 09/20/22 History cyanocobalamin (vitamin B-12) 1,000 mcg PO DAILY 04/04/20 09/20/22 History 1,000 mcg tablet multivitamin,vi-kgmz-pofenocb 1 tablet PO DAILY 04/04/20 09/20/22 History (Complete Multivitamin tablet) saw palm 160 mg-vit E 100 1 tablet PO DAILY 04/04/20 09/20/22 History unit-selen 100 wpf-xfqi-rteejw-pygeum tablet (Prostate Health) vitamins A,C,O-ewxb-nmhbio 4,296 1 cap PO DAILY 06/05/21 09/20/22 History mcg-226 mg-90 mg capsule (PreserVision AREDS) Allergies Allergy/AdvReac Type Severity Reaction Status Date / Time No Known Allergies Allergy Verified 07/24/25 13:24 Vital Signs Vital Signs - 24 hr 07/24/25 11:22 07/24/25 13:29 Temperature 97.6 F 97.7 F Pulse Rate 71 65 Respiratory Rate 16 18 Blood Pressure 157/79 H 129/76 Pulse Oximetry 98 95 Oxygen Delivery Room Air Room Air Exam Narrative: uncomfortable because can not swallow Cardio: Rate: regular rate GI: GI Palp: No abdominal tenderness Auscultation: normal bowel sounds Assessment and Plan Assessment and plan (1) Food impaction of esophagus: Qualifiers: Encounter type: initial encounter Qualified Code(s): T18.128A - Food in esophagus causing other injury, initial encounter; W44.F3XA - Food entering into or through a natural orifice, initial encounter Code(s): T18.128A - Food in esophagus causing other injury, initial encounter; W44.F3XA - Food entering into or through a natural orifice, initial encounter Status: Acute Assessment and Plan: urgent egd
== END 2025-07-24 15:55 | disposition home or self-care (01) ==
LOC: ANHED 12:53 → ANHSURGERY 12:55
PROVIDERS: Emergency Provider Family Medicine; PCP Internal Medicine; Visit Provider Internal Medicine Gastroenterology
PROC: 0DJ08ZZ Inspection of Upper Intestinal Tract, Via Natural or Artificial Opening Endoscopic (ICD-10-PCS; CPT 43247; principal; 2025-07-24 14:30)
DX: T18.128A Food in esophagus causing other injury, initial encounter (principal); K22.2 Esophageal obstruction; W44.F3XA Food entering into or through a natural orifice, initial encounter; R94.31 Abnormal electrocardiogram [ECG] [EKG]; I45.10 Unspecified right bundle-branch block; F41.9 Anxiety disorder, unspecified; E78.00 Pure hypercholesterolemia, unspecified; Z98.890 Other specified postprocedural states; Z96.0 Presence of urogenital implants; Z87.442 Personal history of urinary calculi; Z80.0 Family history of malignant neoplasm of digestive organs; Z82.49 Family history of ischemic heart disease and other diseases of the circulatory system
CPT/HCPCS: 43247; 36415; 71045; 80053; 85025; 93005; 96374; 99285; J0330; J1610; J2003; J2405; J2704; J7030; J7120

== ENCOUNTER 2025-09-04 00:41 | Day surgery (SDC) | payer MEDICARE, SELFPAY ==
[2025-08-13 09:28] VITALS: BMI 25.4
--- OUTSIDE RECORDS SUMMARY | 2025-09-04 00:44 | XMS_ITS | Encounter Summary ---
Author Organization [facility] Address [address] [place] [id number] Care Team Providers Care Soil Sort Worker Name Role Phone Jeremy Flores MD Primary Care Provider [phone] Encounter Details Date Type Department Care Team (Late st Contact Info) Description 10/04/2022 Prep for Procedure [facility] Pre-[place]mission [place] [address] Jag Bruce MD 3 [facility] [address] [place] [address] Social History Tobacco Use Types Packs/Day Years Used Date Smoking Tobacco: Never Smokeless Tobacco: Never Alcohol Use Standard Drinks/Week Comments Never 0 (1 standard drink = 0.6 oz pur e alcohol) Sex and Gender Information Value Date Recorded Sex Assigned at Male 05/07/2025 10:46 AM CDT Legal Sex Male 9:02 AM CONSULTANT INTERN Gender Identity Not on file Sexual Orientation Not on file COVID-19 Exposure Response Date Recorded In the last 10 days, have yo u been in contact with someone who was confirmed or suspected to have Coronavirus/COVID-19? No / Unsure 10/04/2022 11:45 AM CONSULTANT INTERN documented as of this encounter Plan of Treatment Not on file documented as of this encounter Results * PROTIME/INR, VENOUS (10/08/2022 3:41 PM CONSULTANT INTERN) PROTIME 11.4 10.2 - 12.9 SEC 10/08/2022 4:55 PM CONSULTANT INTERN [facility] INR 1.0 10/08/2022 4:55 PM CONSULTANT INTERN [facility] Comment: Recommended INR Therapeutic Goals: 2.0-3.0 Routine Therapy 2.5-3.5 Mechanical Prosthetic Valves (High Risk) 10/08/2022 3:41 PM CONSULTANT INTERN Jag Bruce MD LABORATORY Final Res ult Performing Organization Address City/[facility]/ZIP Co de Phone Number [facility] [address] [place] [address], [place] [phone] * PTT, PARTIAL THROMBOPLASTIN TIME (10/08/2022 3:41 PM CONSULTANT INTERN) PTT 28.9 25.1 - 36.5 SEC 10/08/2022 4:55 PM CONSULTANT INTERN [facility] 10/08/2022 3:41 PM CONSULTANT INTERN us Jag Bruce MD LABORATORY Final Res ult Performing Organization Address [facility] Co de Phone Number [facility] [address] [place] [address], [place] [phone] * (ABNORMAL) COMPREHENSIVE METABOLIC PANEL (10/08/2022 3:41 PM CONSULTANT INTERN) GLUCOSE 90 70 - 99 MG/DL 10/08/2022 4:54 PM CONSULTANT INTERN [facility] BUN 16 7 - 18 MG/DL 10/08/2022 4:54 PM CONSULTANT INTERN [facility] CREATININE S/P/B 1.05 0.7 - 1.3 MG/DL 10/08/2022 4:54 PM CONSULTANT INTERN [facility] SODIUM S/P/B 139 136 - 145 MMOL/L 10/08/2022 4:54 PM CONSULTANT INTERN [facility] POTASSIUM S/P/B 4.9 3.5 - 5.1 MMOL/L 10/08/2022 4:54 PM [facility] CHLORIDE S/P/B 101 100 - 108 MMOL/L 10/08/2022 4:54 PM [facility] CO2 33.7(H) 21 - 32 MMOL/L 10/08/2022 4:54 PM [facility] CALCIUM S/P/B 10.2(H) 8.5 - 10.1 MG/DL 10/08/2022 4:54 PM [facility] BILIRUBIN TOTAL S/P/B 0.7 0.2 - 1.2 MG/DL 10/08/2022 4:54 PM [facility] Comment: THIS ASSAY IS NOT RECOMMENDED FOR PATIENTS UNDERGOING TREATMENT WITH ELTROMBOPAG DUE TO THE POTENTIAL FOR FALSELY ELEVATED RESULTS. TOTAL PROTEIN S/P/B 7.7 6.4 - 8.2 G/DL 10/08/2022 4:54 PM [facility] ALBUMIN S/P/B 4.0 3.4 - 5.0 G/DL 10/08/2022 4:54 PM [facility] AST 17 15 - 37 U/L 10/08/2022 4:54 PM [facility] ALT 24 16 - 60 U/L 10/08/2022 4:54 PM [facility] ALKALINE PHOSPHATASE S/P/B 60 50 - 136 U/L 10/08/2022 4:54 PM [facility] ANION GAP 4.3(L) 5 - 15 MMOL/L 10/08/2022 4:54 PM [facility] BUN CREATININE RATIO 15.2 6 - 26 10/08/2022 4:54 PM [facility] A/G RATIO 1.1 1.0 - 2.0 RATIO 10/08/2022 4:54 PM CONSULTANT INTERN [facility] GFR ESTIMATE 77(L) >90 ML/MIN/1.7 3 M2 10/08/2022 4:54 PM [facility] Comment: NOTE: eGFR is not calculated for patients <18 years of age. This is an estimated GFR calculation using the new CKD EPI creatinine equation without race and so does not require a correction factor for race. This estimated GFR should not be used for calculating drug doses. 10/08/2022 3:41 PM CONSULTANT INTERN us Jag Bruce MD LABORATORY Final Res ult [facility] [address] [place] [address], [place] [phone] * (ABNORMAL) CBC W/DIFF AUTOMATED (10/08/2022 3:41 PM CONSULTANT INTERN) WBC 6.8 4.5 - 11.0 x10'3/uL 10/08/2022 4:31 PM [facility] RBC 4.34(L) 4.70 - 6.10 x10'6/uL 10/08/2022 4:31 PM [facility] HGB 14.2 14.0 - 18.0 G/DL 10/08/2022 4:31 PM [facility] HCT 43.2 43.0 - 54.0 % 10/08/2022 4:31 PM [facility] MCV 99.5(H) 80.0 - 94.0 FL 10/08/2022 4:31 PM [facility] MCH 32.7(H) 27.0 - 31.0 PG 10/08/2022 4:31 PM [facility] MCHC 32.9 32.0 - 36.0 G/DL 10/08/2022 4:31 PM [facility] RDW 12.3 11.5 - 14.5 % 10/08/2022 4:31 PM [facility] PLT 277 130 - 400 x10'3/uL 10/08/2022 4:31 PM [facility] MPV 10.2 9.3 - 12.2 FL 10/08/2022 4:31 PM [facility] DIFFERENTIAL TYPE AUTOMATED DIFFERENTIAL 10/08/2022 4:31 PM [facility] NEUTROPHILS % 60.1 % 10/08/2022 4:31 PM [facility] LYMPHOCYTES % 29.2 % 10/08/2022 4:31 PM [facility] MONOCYTES % 7.9 % 10/08/2022 4:31 PM [facility] EOSINOPHILS 2.1 % 10/08/2022 4:31 PM [facility] BASOPHILS 0.6 % 10/08/2022 4:31 PM [facility] IMMATURE GRANS % 0.1 % 10/08/19 4:31 PM [facility] ABS. NEUTROPHILS TOTAL 4.10 1.80 - 7.70 x10'3/uL 10/08/2022 4:31 PM [facility] ABS. LYMPHOCYTES 1.99 1.00 - 4.80 x10'3/uL 10/08/2022 4:31 PM [facility] ABS. MONOCYTES 0.54 0.30 - 0.82 x10'3/uL 10/08/2022 4:31 PM [facility] ABS. EOSINOPHILS 0.14 0.04 - 0.54 x10'3/uL 10/08/2022 4:31 PM [facility] ABS. BASOPHILS 0.04 0.01 - 0.08 x10'3/uL 10/08/2022 4:31 PM CONSULTANT INTERN [facility] ABS. IMMATURE GRANULOCYTES 0.01 0.00 - 0.49 x10'3/uL 10/08/2022 4:31 PM CONSULTANT INTERN [facility] 10/08/2022 3:41 PM CONSULTANT INTERN Jag Bruce MD LABORATORY Final Res ult Performing Organization Address [facility] Co de Phone Number [facility] [address] [place] [address], [place] [phone] * CULTURE URINE (10/08/2022 3:38 PM CONSULTANT INTERN) SPEC DESCRIPTION URINE CLEAN CATCH 10/08/2022 3:38 PM CONSULTANT INTERN [facility] SPECIAL REQUESTS NO SPECIAL REQUEST 10/08/2022 3:38 PM CONSULTANT INTERN [facility] CULTURE RESULT NO GROWTH 2 DAYS 10/10/2022 8:43 AM CONSULTANT INTERN [facility] URINE SPECIMEN OBTAINED BY CLEAN CATCH PROCEDURE / Unknown 10/08/2022 3:38 PM CONSULTANT INTERN 10/08/2022 3:40 PM CONSULTANT INTERN Jag Bruce MD MICROBIOLOGY - GENERAL OR DERABLES Final Result Performing Organization Address City/[facility]/ZIP Co de Phone Number [facility] [address] [place] [address], [place] [phone] * (ABNORMAL) URINALYSIS (10/08/2022 3:38 PM CONSULTANT INTERN) SPECIMEN TYPE URINE CLEAN CATCH 10/08/2022 3:38 PM CONSULTANT INTERN [facility] COLOR (U) LIGHT YELLOW 10/08/2022 4:37 PM [facility] TRANSPARENCY CLEAR 10/08/2022 4:37 PM [facility] SPECIFIC GRAVITY (U) 1.008 1.001 - 1.030 10/08/2022 4:37 PM [facility] U PH 5.5 5.0 - 9.0 10/08/2022 4:37 PM [facility] LEUKOCYTES (U) 250(A) NEGATIVE 10/08/2022 4:37 PM [facility] NITRITES NEGATIVE NEGATIVE 10/08/2022 4:37 PM [facility] PROTEIN (U) NEGATIVE <30 MG/DL 10/08/2022 4:37 PM [facility] URINE GLUCOSE NORMAL NORMAL MG/DL 10/08/2022 4:37 PM [facility] KETONES MG/DL (U) NEGATIVE NEGATIVE MG/DL 10/08/2022 4:37 PM [facility] UROBILINOGEN NORMAL NORMAL MG/DL 10/08/2022 4:37 PM [facility] BILIRUBIN (U) NEGATIVE NEGATIVE MG/DL 10/08/2022 4:37 PM [facility] BLOOD (U) NEGATIVE NEGATIVE 10/08/2022 4:37 PM [facility] MUCUS RARE /LPF 10/08/2022 4:37 PM [facility] WBC/HPF 7(H) <6 /HPF 10/08/2022 4:37 PM [facility] RBC/HPF 1 <6 /HPF 10/08/2022 4:37 PM [facility] BACTERIA (U) RARE(A) NONE /HPF 10/08/2022 4:37 PM [facility] URINE SPECIMEN OBTAINED BY CLEAN CATCH PROCEDURE / Unknown 10/08/2022 3:38 PM CONSULTANT INTERN Jag Bruce MD URINE ORDERABLES Final Re sult [facility] [address] [place] [address], documented in this encounter Visit Diagnoses Diagnosis Left ureteral stone- Primary documented in this encounter Care Teams Soil Sort Worker Relationship Specialty Start Date End Date Jeremy Flores MD [address] [address] PCP - General INTERNAL MEDICINE 10/08/22 documented as of this encounter
--- OUTSIDE RECORDS SUMMARY | 2025-09-04 00:44 | XMS_ITS | Clinical Summary ---
Author Organization [facility] Address [address] [place] [address] Care Team Providers Care Key Bed Installer Name Role Phone Jeremy Flores MD Primary Care Provider [phone] Allergies No known active allergies Medications Multiple Vitamin (MULTIVITAMIN ADULT OR) Take 1 tablet by mouth daily. Active Nutritional Supplements (PROSTATE FORMULA OR) Take 1 tablet by mouth daily. Active vitamin A 3 MG (73406 UT) capsule Take 3 mg by mouth daily. Active Ascorbic Acid (VITAMIN C) 100 MG tablet Take 100 mg by mouth daily. Active Cholecalciferol (VITAMIN D) 50 MCG (2000 UT) Tab Take 1 tablet by mouth daily. Active B complex-C Cap capsule Take 1 capsule by mouth daily. Active escitalopram (LEXAPRO) 10 MG tablet Take 1 tablet by mouth daily. 10/18/2022 Active Active Problems Problem Noted Date Diagnosed Date Ureteral stone 10/19/2022 Family History Medical History Relation Comments Stroke Brother 1 Heart Disease Brother 2 Stroke Brother 2 Stroke Brother 3 Stroke Brother 4 No Known Problems Brother 5 No Known Problems Daughter Cancer Father Colon Cancer Father Stroke Mother No Known Problems Son 1 No Known Problems Son 2 Relation Status Comments Brother 1 Alive Brother 2 Alive Brother 3 Alive Brother 4 Alive Brother 5 Alive Daughter Alive Father Mother Son 1 Alive Son 2 Alive Social History Tobacco Use Types Packs/Day Years Used Date Smoking Tobacco: Never Smokeless Tobacco: Never Tobacco Cessation:Counseling Given: Not Answered Alcohol Use Standard Drinks/Week Comments Never 0 (1 standard drink = 0.6 oz pur e alcohol) Sex and Gender Information Value Date Recorded Sex Assigned at Male 05/07/2025 10:46 AM CDT Legal Sex Male 9:02 AM SEMICONDUCTOR ENGINEER Gender Identity Not on file Sexual Orientation Not on file Last Filed Vital Signs Vital Sign Reading Time Taken Comments Blood Pressure 121/64 10/19/2022 12:00 PM SEMICONDUCTOR ENGINEER Pulse 70 10/19/2022 12:00 PM SEMICONDUCTOR ENGINEER Temperature 36.2 C (97.2 F) 10/19/2022 12:00 PM SEMICONDUCTOR ENGINEER Respiratory Rate 18 10/19/2022 12:0 0 PM SEMICONDUCTOR ENGINEER Oxygen Saturation 99% 10/19/2022 12: 00 PM SEMICONDUCTOR ENGINEER Inhaled Oxygen Concentration - - Weight 81.5 kg (179 lb 10.8 oz) 10/19/2022 8:00 AM SEMICONDUCTOR ENGINEER Height 175.3 cm (5' 9) 10/19/2022 8:00 AM SEMICONDUCTOR ENGINEER Body Mass Index 26.53 10/19/2022 8:00 AM SEMICONDUCTOR ENGINEER Plan of Treatment Health Maintenance Due Date Last Done Comments Colorectal Cancer Screening Colonoscopy (10 Years) 1955 Hepatitis C 1971 Zoster Vaccines (1 of 2) 2003 Annual Medicare Wellness Visit 2018 COVID-19 Vaccine ( season) 2025 11/12/2021, 07/08/2021, 01/08/2021, Additional history exists Influenza Adult (#1) 2025 DTaP, Tdap and Td Vaccines (2 - Td or Tdap) 01/12/2027 01/12/2017 RSV Immunization or 60+ Years (1 - 1-dose 75+ series) 2028 Pneumococcal Vaccine: 50+ Years Completed 09/15/2022, 12/13/2019 Hepatitis A Vaccines Aged Out No long er eligible based on patient's age to complete this topic Meningococcal B Vaccine Aged Out No l onger eligible based on patient's age to complete this topic Meningococcal Vaccine Aged Out No timbo sheryl eligible based on patient's age to complete this topic RSV Immunizations Under 20 Months Aged Out No longer eligible based on patient's age to complete this topic Insurance [employer] MEDIC[employer] Care Teams Key Bed Installer Relationship Specialty Start Date End Date Jeremy Flores MD [address] [address] PCP - General INTERNAL MEDICINE 10/08/22
--- OUTSIDE RECORDS SUMMARY | 2025-09-04 00:44 | XMS_ITS | Data Portability ---
Author Organization [facility], Main Office Address [address] [place] [address] Care Team Providers Care Planning Official Name Role Phone ALONZO FLORES Primary Care Provider ALONZO FLORES Referring Provider [phone] Assessment Encounter Date Assessment Date Assessment LastModified [...] None recorded. Lab lipid panel, serum [email or web address] [place] [address] Outpatient Lab, [address] [place], [address], 4 09:59:50 CMP, serum or plasma 2023 024 [email or web address] [facility] Outpatient Lab, [address] [place], [address], 4 09:59:50 TSH, serum or plasma 2023 024 [email or web address] [facility] Outpatient Lab, [address] [place], [address], 4 09:59:50 T4, free, serum 2023 024 [email or web address] [facility] Outpatient Lab, [address] [place], [address], 4 09:59:50 CBC w/ auto diff 2023 024 [email or web address] [facility] Outpatient Lab, [address] [place], [address], 4 09:59:51 PSA, serum or plasma 2023 024 [email or web address] [facility] Outpatient Lab, [address] [place], [address], 4 09:59:51 PSA, total, serum or plasma 2023 024 [email or web address] [facility] Outpatient Lab, [address] [place], [address], 4 10:55:27 lipid panel, serum 2023 024 [email or web address] [facility] Outpatient Lab, [address] [place] [address], [address], 4 16:45:38 CMP, serum or plasma 2023 024 [email or web address] [facility] Outpatient Lab, [address] [place], [address], 4 16:45:39 TSH, serum or plasma 2023 024 [email or web address] [facility], [address] [place] [address], [address], 4 16:45:39 T4, free, serum 2023 024 [facility] Outpatient Lab, [address] [place] [address], [address], 4 16:45:39 CBC w/ auto diff [email or web address] [place] [address] Outpatient Lab, [address] [place] [address], [address], 4 16:45:39 Referral None recorded. Procedures injection/a spiration joint/bursa (PROC) 2023 024 [email or web address] In-Office Order, Internal Use Only DO Not Attach Compendium DO Not Attach Compendium, Do Not Delete/merge, [address] 13:38:26 Surgeries None recorded. Imaging XR, knee 2023 024 [email or web address] [facility] [place], [address], [place], [address], 13:46:45 Medication Orders bupivacaine HCl 0.5 % (5 mg/mL) injection solution 2023 024 [email or web address] [facility] 2425, [address], [place], [address], 13:46:45 prednisone 10 mg tablets in a dose pack 2023 024 [email or web address] [facility] 2425, [address], [place], [address], 13:46:45 Patient TargetsNo targets recorded. Patient Instructions Encounter Date Encounter Id Patient Instructions Last Modified By Organization Details Last Modified Time 10/05/2023 [id number] dementia rating scale-2* Not available 10/05/2023 17:31:46 alcohol misuse* [email or web address] Not available 10/05/2023 17:31:46 depression screening* [email or web address] Not available 10/05/2023 17:31:46 multi-dimensiona l health assessment questionnaire* Not available 10/05/2023 17:31:46 Personalized a lt [...] Negative Active diagnosis, Continue current treatment plan [email or web address] Not available 10/05/2023 17:21:27 Medicare wellnes s [...] occurred. Home sleep study for sleep apnea [email or web address] Not available 10/05/2023 17:31:24 04/04/2024 [id number] Follow-up for hyperlipidemia, mild depression as well [...] recognize, using context, where substitutions have occurred. [email or web address] Not available 04/04/2024 17:06:53 08/29/2024 [id number] Follow-up for hyperlipidemia, depression, BPH, family history [...] Created: Alonzo Flores M.D. 08.29.2024 11:13 AM [email or web address] Not available 08/29/2024 12:13:12 Reason for Referral None Reported. Results Created Date Observation Date Name Description Value Unit Range Abnormal Flag Note LastModifiedBy Organization Detail LastModifiedTime 02/23/20 24 02/24/2024 LIPID PANEL , STAND SUNNY cholesterol, total 171 mg/dL <200 normal Not Available [address], [address], 02/24/2024 08:20:33 02/23/20 24 02/24/2024 LIPID PANEL , STAND SUNNY HDL cholesterol 61 mg/dL > or = 40 normal Not Available [address], [address], 02/24/2024 08:20:33 02/23/20 24 02/24/2024 LIPID PANEL , STAND SUNNY triglyceride s 71 mg/dL <150 normal Not Available [address], [address], 02/24/2024 08:20:33 02/23/20 24 02/24/2024 LIPID PANEL [...] 9): 2061- 2068 (http ://ed ucati on.Yoanna aguilar[employer]. com/f aq/FA Q164) Not Available [address], [address], 02/24/2024 08:20:33 02/23/20 24 02/24/2024 LIPID PANEL , STAND SUNNY chol/HDLC ratio 2.8 (calc ) <5.0 normal Not Available [address], [address], 02/24/2024 08:20:33 02/23/20 24 02/24/2024 LIPID PANEL , STAND SUNNY non HDL cholesterol 110 mg/dL _(salome c) <130 normal For patie nts with diabe lina plus 1 major ASCVD risk facto r, treat ing to a non-H DL-C goal of <100 mg/dL (LDL- C of <70 mg/dL ) is consi dered a thera peuti c optio n. Not Available [address], [address], 02/24/2024 08:20:33 02/23/20 24 02/24/2024 COMPR EHENS HIREN METAB OLIC PANEL glucose 92 mg/dL 65-99 normal Fasti ng refer ence inter monica Not Available [address], [address], 02/24/2024 08:20:35 02/23/20 24 02/24/2024 COMPR EHENS HIREN METAB OLIC PANEL urea nitrogen (BUN) 15 mg/dL 7-25 normal Not Available [address], [address], 02/24/2024 08:20:35 02/23/20 24 02/24/2024 COMPR EHENS HIREN METAB OLIC PANEL creatinine 1.01 mg/dL 0.70-1 .28 normal Not Available [address], [address], 02/24/2024 08:20:35 02/23/20 24 02/24/2024 COMPR EHENS HIREN METAB OLIC PANEL eGFR 80 mL/mi n/1.7 3m2 > or = 60 normal Not Available [address], [address], 02/24/2024 08:20:35 02/23/20 24 02/24/2024 COMPR EHENS HIREN METAB OLIC PANEL BUN/creatini ne ratio SEE NOTE: (calc ) 6-22 Not Repor brennon: BUN and Creat inine are withi n refer ence range . Not Available [address], [place], [address], 02/24/2024 08:20:35 02/23/20 24 02/24/2024 COMPR EHENS HIREN METAB OLIC PANEL sodium 141 mmol/ L 135-14 6 normal Not Available [address], [place], [address], 02/24/2024 08:20:35 02/23/20 24 02/24/2024 COMPR EHENS HIREN METAB OLIC PANEL potassium 4.7 mmol/ L 3.5-5. 3 normal Not Available [address], [address], 02/24/2024 08:20:35 02/23/20 24 02/24/2024 COMPR EHENS HIREN METAB OLIC PANEL chloride 105 mmol/ L 98-110 normal Not Available [address], [address], 02/24/2024 08:20:35 02/23/20 24 02/24/2024 COMPR EHENS HIREN METAB OLIC PANEL carbon dioxide 31 mmol/ L 20-32 normal Not Available [address], [address], 02/24/2024 08:20:35 02/23/20 24 02/24/2024 COMPR EHENS HIREN METAB OLIC PANEL calcium 9.5 mg/dL 8.6-10 .3 normal Not Available [address], [address], 02/24/2024 08:20:35 02/23/20 24 02/24/2024 COMPR EHENS HIREN METAB OLIC PANEL protein, total 6.3 g/dL 6.1-8. 1 normal Not Available [address], [address], 02/24/2024 08:20:35 02/23/20 24 02/24/2024 COMPR EHENS HIREN METAB OLIC PANEL albumin 4.2 g/dL 3.6-5. 1 normal Not Available [address], [address], 02/24/2024 08:20:35 02/23/20 24 02/24/2024 COMPR EHENS HIREN METAB OLIC PANEL globulin 2.1 g/dL_ (calc ) 1.9-3. 7 normal Not Available [address], [address], 02/24/2024 08:20:35 02/23/20 24 02/24/2024 COMPR EHENS HIREN METAB OLIC PANEL albumin/glob ulin ratio 2.0 (calc ) 1.0-2. 5 normal Not Available [address], [address], 02/24/2024 08:20:35 02/23/20 24 02/24/2024 COMPR EHENS HIREN METAB OLIC PANEL bilirubin, total 0.8 mg/dL 0.2-1. 2 normal Not Available [address], [address], 02/24/2024 08:20:35 02/23/20 24 02/24/2024 COMPR EHENS HIREN METAB OLIC PANEL alkaline phosphatase 63 U/L 35-144 normal Not Available [address], [address], 02/24/2024 08:20:35 02/23/20 24 02/24/2024 COMPR EHENS HIREN METAB OLIC PANEL AST 26 U/L 10-35 normal Not Available [address], [address], 02/24/2024 08:20:35 02/23/20 24 02/24/2024 COMPR EHENS HIREN METAB OLIC PANEL ALT 21 U/L 9-46 normal Not Available [address], [address], 02/24/2024 08:20:35 02/23/20 24 02/24/2024 CBC (INCL UDES DIFF/ PLT) white blood cell count 6.1 thous and/u L 3.8-10 .8 normal Not Available [address], [address], 02/24/2024 08:20:36 02/23/20 24 02/24/2024 CBC (INCL UDES DIFF/ PLT) red blood cell count 4.07 brandon on/uL 4.20-5 .80 low Not Available [address], [address], 02/24/2024 08:20:36 02/23/20 24 02/24/2024 CBC (INCL UDES DIFF/ PLT) hemoglobin 13.5 g/dL 13.2-1 7.1 normal Not Available [address], [address], 02/24/2024 08:20:36 02/23/20 24 02/24/2024 CBC (INCL UDES DIFF/ PLT) hematocrit 40.2 % 38.5-5 0.0 normal Not Available [address], [address], 02/24/2024 08:20:36 02/23/20 24 02/24/2024 CBC (INCL UDES DIFF/ PLT) MCV 98.8 fL 80.0-1 00.0 normal Not Available [address], [address], 02/24/2024 08:20:36 02/23/20 24 02/24/2024 CBC (INCL UDES DIFF/ PLT) MCH 33.2 pg 27.0-3 3.0 high Not Available [facility] [address], [address], 02/24/2024 08:20:36 02/23/20 24 02/24/2024 CBC (INCL UDES DIFF/ PLT) MCHC 33.6 g/dL 32.0-3 6.0 normal Not Available [address], [address], 02/24/2024 08:20:36 02/23/20 24 02/24/2024 CBC (INCL UDES DIFF/ PLT) RDW 11.9 % 11.0-1 5.0 normal Not Available [address], [address], 02/24/2024 08:20:36 02/23/20 24 02/24/2024 CBC (INCL UDES DIFF/ PLT) platelet count 238 thous and/u L 140-40 0 normal Not Available [address], [address], 02/24/2024 08:20:36 02/23/20 24 02/24/2024 CBC (INCL UDES DIFF/ PLT) MPV 10.7 fL 7.5-12 .5 normal Not Available [address], [address], 02/24/2024 08:20:36 02/23/20 24 02/24/2024 CBC (INCL UDES DIFF/ PLT) absolute neutrophils 3459 cells /uL 1500-7 800 normal Not Available [facility] [address], [address], 02/24/2024 08:20:36 02/23/20 24 02/24/2024 CBC (INCL UDES DIFF/ PLT) absolute lymphocytes 1629 cells /uL 850-39 00 normal Not Available [address], [address], 02/24/2024 08:20:36 02/23/20 24 02/24/2024 CBC (INCL UDES DIFF/ PLT) absolute monocytes 506 cells /uL 200-95 0 normal Not Available [address], [address], 02/24/2024 08:20:36 02/23/20 24 02/24/2024 CBC (INCL UDES DIFF/ PLT) absolute eosinophils 476 cells /uL 15-500 normal Not Available [address], [address], 02/24/2024 08:20:36 02/23/20 24 02/24/2024 CBC (INCL UDES DIFF/ PLT) absolute basophils 31 cells /uL 0-200 normal Not Available [facility] [address], [address], 02/24/2024 08:20:36 02/23/20 24 02/24/2024 CBC (INCL UDES DIFF/ PLT) neutrophils 56.7 % normal Not Available [facility] [address], [address], 02/24/2024 08:20:36 02/23/20 24 02/24/2024 CBC (INCL UDES DIFF/ PLT) lymphocytes 26.7 % normal Not Available [facility] [address], [address], 02/24/2024 08:20:36 02/23/20 24 02/24/2024 CBC (INCL UDES DIFF/ PLT) monocytes 8.3 % normal Not Available [address], [address], 02/24/2024 08:20:36 02/23/20 24 02/24/2024 CBC (INCL UDES DIFF/ PLT) eosinophils 7.8 % normal Not Available [address], [address], 02/24/2024 08:20:36 02/23/20 24 02/24/2024 CBC (INCL UDES DIFF/ PLT) basophils 0.5 % normal Not Available [facility] [address], [address], 02/24/2024 08:20:36 02/23/20 24 02/24/2024 T4, FREE T4, free 1.0 NG/dL 0.8-1. 8 normal Not Available [address], [address], 02/24/2024 08:20:37 02/23/20 24 02/24/2024 TSH TSH 3.72 mIU/L 0.40-4 .50 normal Not Available [address], [address], 02/24/2024 08:20:38 09/13/20 24 09/13/2024 COVID -19, [...] provi ders and patie nts at the [facility] lina: https ://ww w.fda .gov/ media /4713 12/do wnloa d https ://ww w.fda .gov/ media /1035 13/do wnloa d Metho dolog y: Real- Time RT-PC R Not Available [facility] (Lab) [address] [place], [address], 09/13/2024 14:20:19 09/13/20 24 09/13/2024 COVID -19, INFLU [place] A+B, PCR influenza A RNA, RT-PCR POSITI VE abnormal Not Available [facility] (Lab) [address] [place], [address], 09/13/2024 14:20:19 09/13/20 24 09/13/2024 COVID -19, INFLU [place] A+B, PCR influenza B RNA, RT-PCR NEGATI VE abnormal Not Available [facility] (Lab) [address] [place], [address], 09/13/2024 14:20:19 09/27/19 25 09/28/2024 LIPID PANEL , STAND SUNNY cholesterol, total 161 mg/dL <200 normal Not Available [facility] [address], [address], 09/28/2024 06:48:20 09/27/19 25 09/28/2024 LIPID PANEL , STAND SUNNY HDL cholesterol 57 mg/dL > or = 40 normal Not Available [facility] [address] [place], [address], 09/28/2024 06:48:20 09/27/19 25 09/28/2024 LIPID PANEL , STAND SUNNY triglyceride s 64 mg/dL <150 normal Not Available [facility] [address], [address], 09/28/2024 06:48:20 09/27/19 25 09/28/2024 LIPID PANEL [...] 9): 2061- 2068 (http ://ed ucati on.[employer].com. com/f aq/FA Q164) Not Available [facility] [address] [place], [address], 09/28/2024 06:48:20 09/27/19 25 09/28/2024 LIPID PANEL , STAND SUNNY chol/HDLC ratio 2.8 (calc ) <5.0 normal Not Available [facility] [address] [place], [address], 09/28/2024 06:48:20 09/27/1909/28/2024 LIPID PANEL , STAND SUNNY non HDL cholesterol 104 mg/dL _(salome c) <130 normal For patie nts with diabe lina plus 1 major ASCVD risk facto r, treat ing to a non-H DL-C goal of <100 mg/dL (LDL- C of <70 mg/dL ) is kev lewis c optio n. Not Available [facility] [address] [place], [address], 09/28/2024 06:48:20 09/27/19 25 09/28/2024 COMPR EHENS HIREN METAB OLIC PANEL glucose 95 mg/dL 65-99 normal Fasti ng refer ence inter monica Not Available [address], [address], 09/28/2024 06:48:21 09/27/19 25 09/28/2024 COMPR EHENS HIREN METAB OLIC PANEL urea nitrogen (BUN) 15 mg/dL 7-25 normal Not Available [address], [address], 09/28/2024 06:48:21 09/27/19 25 09/28/2024 COMPR EHENS HIREN METAB OLIC PANEL creatinine 1.07 mg/dL 0.70-1 .28 normal Not Available [address], [address], 09/28/2024 06:48:21 09/27/19 25 09/28/2024 COMPR EHENS HIREN METAB OLIC PANEL eGFR 74 mL/mi n/1.7 3m2 > or = 60 normal Not Available [address], [address], 09/28/2024 06:48:21 09/27/1909/28/2024 COMPR EHENS HIREN METAB OLIC PANEL BUN/creatini ne ratio SEE NOTE: (calc ) 6-22 Not Repor brennon: BUN and Creat inine are withi n refer ence range . Not Available [address], [address], 09/28/2024 06:48:21 09/27/1909/28/2024 COMPR EHENS HIREN METAB OLIC PANEL sodium 141 mmol/ L 135-14 6 normal Not Available [address], [address], 09/28/2024 06:48:21 09/27/19 25 09/28/2024 COMPR EHENS HIREN METAB OLIC PANEL potassium 5.0 mmol/ L 3.5-5. 3 normal Not Available [address] [place], [address], 09/28/2024 06:48:21 09/27/19 25 09/28/2024 COMPR EHENS HIREN METAB OLIC PANEL chloride 105 mmol/ L 98-110 normal Not Available [address], [address], 09/28/2024 06:48:21 09/27/1909/28/2024 COMPR EHENS HIREN METAB OLIC PANEL carbon dioxide 32 mmol/ L 20-32 normal Not Available [facility] [address], [address], 09/28/2024 06:48:21 09/27/19 25 09/28/2024 COMPR EHENS HIREN METAB OLIC PANEL calcium 9.3 mg/dL 8.6-10 .3 normal Not Available [address], [address], 09/28/2024 06:48:21 09/27/19 25 09/28/2024 COMPR EHENS HIREN METAB OLIC PANEL protein, total 6.2 g/dL 6.1-8. 1 normal Not Available [address], [address], 09/28/2024 06:48:21 09/27/1909/28/2024 COMPR EHENS HIREN METAB OLIC PANEL albumin 4.2 g/dL 3.6-5. 1 normal Not Available [address], [address], 09/28/2024 06:48:21 09/27/1909/28/2024 COMPR EHENS HIREN METAB OLIC PANEL globulin 2.0 g/dL_ (calc ) 1.9-3. 7 normal Not Available [facility] [address], [address], 09/28/2024 06:48:21 09/27/19 25 09/28/2024 COMPR EHENS HIREN METAB OLIC PANEL albumin/glob ulin ratio 2.1 (calc ) 1.0-2. 5 normal Not Available [address], [address], 09/28/2024 06:48:21 09/27/19 25 09/28/2024 COMPR EHENS HIREN METAB OLIC PANEL bilirubin, total 0.9 mg/dL 0.2-1. 2 normal Not Available [address], [address], 09/28/2024 06:48:21 09/27/1909/28/2024 COMPR EHENS HIREN METAB OLIC PANEL alkaline phosphatase 63 U/L 35-144 normal Not Available [address], [address], 09/28/2024 06:48:21 09/27/19 25 09/28/2024 COMPR EHENS HIREN METAB OLIC PANEL AST 22 U/L 10-35 normal Not Available [address], [address], 09/28/2024 06:48:21 09/27/19 25 09/28/2024 COMPR EHENS HIREN METAB OLIC PANEL ALT 23 U/L 9-46 normal Not Available [address], [address], 09/28/2024 06:48:21 09/27/1909/28/2024 CBC (INCL UDES DIFF/ PLT) white blood cell count 6.7 thous and/u L 3.8-10 .8 normal Not Available [address], [address], 09/28/2024 06:48:23 09/27/19 25 09/28/2024 CBC (INCL UDES DIFF/ PLT) red blood cell count 4.23 brandon on/uL 4.20-5 .80 normal Not Available [address], [address], 09/28/2024 06:48:23 09/27/1909/28/2024 CBC (INCL UDES DIFF/ PLT) hemoglobin 13.7 g/dL 13.2-1 7.1 normal Not Available [address], [address], 09/28/2024 06:48:23 09/27/1909/28/2024 CBC (INCL UDES DIFF/ PLT) hematocrit 42.0 % 38.5-5 0.0 normal Not Available [address], [address], 09/28/2024 06:48:23 09/27/1909/28/2024 CBC (INCL UDES DIFF/ PLT) MCV 99.3 fL 80.0-1 00.0 normal Not Available [address], [address], 09/28/2024 06:48:23 09/27/1909/28/2024 CBC (INCL UDES DIFF/ PLT) MCH 32.4 pg 27.0-3 3.0 normal Not Available [address], [address], 09/28/2024 06:48:23 09/27/1909/28/2024 CBC (INCL UDES DIFF/ PLT) MCHC 32.6 g/dL 32.0-3 6.0 normal For adult s, a sligh t decre ase in the calcu lated MCHC value (in the range of 30 to 32 g/dL) is most likel y not clini rubin andrew t; anil er, it shoul d be inter prete d with cauti on in [facility] latio n with other red cell jayna eters and the patie nt's clini salome condi tion. Not Available [address], [address], 09/28/2024 06:48:23 09/27/19 25 09/28/2024 CBC (INCL UDES DIFF/ PLT) RDW 11.8 % 11.0-1 5.0 normal Not Available [address], [address], 09/28/2024 06:48:23 09/27/19 25 09/28/2024 CBC (INCL UDES DIFF/ PLT) platelet count 301 thous and/u L 140-40 0 normal Not Available [address], [address], 09/28/2024 06:48:23 09/27/1909/28/2024 CBC (INCL UDES DIFF/ PLT) MPV 10.3 fL 7.5-12 .5 normal Not Available [address], [address], 09/28/2024 06:48:23 09/27/19 25 09/28/2024 CBC (INCL UDES DIFF/ PLT) absolute neutrophils 3678 cells /uL 1500-7 800 normal Not Available [address], [address], 09/28/2024 06:48:23 09/27/19 25 09/28/2024 CBC (INCL UDES DIFF/ PLT) absolute lymphocytes 2104 cells /uL 850-39 00 normal Not Available [address], [address], 09/28/2024 06:48:23 09/27/19 25 09/28/2024 CBC (INCL UDES DIFF/ PLT) absolute monocytes 697 cells /uL 200-95 0 normal Not Available [address], [address], 09/28/2024 06:48:23 09/27/19 25 09/28/2024 CBC (INCL UDES DIFF/ PLT) absolute eosinophils 201 cells /uL 15-500 normal Not Available [facility] [address], [address], 09/28/2024 06:48:23 09/27/19 25 09/28/2024 CBC (INCL UDES DIFF/ PLT) absolute basophils 20 cells /uL 0-200 normal Not Available [address], [address], 09/28/2024 06:48:23 09/27/19 25 09/28/2024 CBC (INCL UDES DIFF/ PLT) neutrophils 54.9 % normal Not Available [facility] [address], [address], 09/28/2024 06:48:23 09/27/1909/28/2024 CBC (INCL UDES DIFF/ PLT) lymphocytes 31.4 % normal Not Available [address], [address], 09/28/2024 06:48:23 09/27/19 25 09/28/2024 CBC (INCL UDES DIFF/ PLT) monocytes 10.4 % normal Not Available [facility] [address], [address], 09/28/2024 06:48:23 09/27/1909/28/2024 CBC (INCL UDES DIFF/ PLT) eosinophils 3.0 % normal Not Available [facility] [address], [address], 09/28/2024 06:48:23 09/27/1909/28/2024 CBC (INCL UDES DIFF/ PLT) basophils 0.3 % normal Not Available [facility] [address], [address], 09/28/2024 06:48:23 09/27/19 25 09/28/2024 T4, FREE T4, free 1.1 NG/dL 0.8-1. 8 normal Not Available [facility] [place] [address] [place], [address], 09/28/2024 06:48:24 09/27/19 25 09/28/2024 TSH TSH 2.25 mIU/L 0.40-4 .50 normal Not Available [facility] [address] [place], [address], 09/28/2024 06:48:25 09/27/19 25 09/28/2024 PSA, TOTAL [...] This test was perfo rmed using the Rabbit chemi lumin escen t metho d. Value s obtai shirley from diffe rent assay metho ds canno t be used inter ta eably . PSA level s, regar dless of value , shoul d not be inter prete d as absol qagan tayagungin evide nce of the prese nce or absen ce of disea se. Not Available [facility] [address] [address] , [place], [address], 09/28/2024 06:48:26 08/30/20 24 XR, knee No observ ation record ed. [email or web address] [facility] [address], [place], [address], 08/30/2024 13:45:48 07/24/20 25 07/24/2025 XR, chest , 1 view No observ ation record ed. [email or web address], [place], [address], 07/24/2025 14:19:11 Result Notes None recorded. Problems Name Problem SNOMED Code Status Onset Date Resolution Date Notes Provider Name and Address Organization Details Recorded Time Benign prostatic hyperplasi a without outflow obstructio n 994128363 Active Not Available [facility] 3 06:56:47 Depressive disorder 65856157 Active Not Available [facility] 3 06:56:47 Family history of malignant neoplasm of gastrointe stinal tract 133504224 Active Not Available [facility] 3 06:56:48 Left inguinal pain 8387557856017 9104 Active 2019 Not Available [facility] 3 06:56:47 Pure hyperchole sterolemia 608376603 Active 2022 Alonzo Flores MD [address], [place], [address] , [facility] 3 15:40:06 Sleep apnea 61264574 Active 2023 Alonzo Flores MD [address], [place], [address] , [facility] 4 17:27:21 Pain of right knee joint 4007843576372 00 Active 2023 Alonzo Flores MD [address], [place], [address] , [facility] 4 12:08:40 Disorder of prostate 93928053 Active 2023 Alonzo Flores MD [address], [place], [address] , [facility] 4 12:13:05 Prepatella r bursitis 27386514 Active 2023 Delilah Snow null, [place] [facility] 4 13:29:49 Fever 393093875 Active 2023 Beatrice [place] CMA null, [place] [facility] 4 11:10:20 Influenza 1968853 Active 2023 Alonzo Flores MD [address], [place], [address] , [facility] [employer] [facility] 4 14:23:04 Anxiety 48023646 Active 2024 Alonzo Flores MD [address], [facility] [address], [place], [address] , [facility] [employer] [facility] 5 12:18:54 Problem Notes None recorded. Procedures Surgical History Date Name Laterality Status Provider Name and Address Organization Details Recorded Time Medicare Wellness CPT Code, subsequent completed Genet Nobles RN [facility] [employer] 10/05/2023 17:14:02 Imaging Results None recorded. Procedure [...] Not Avai lable lorazepam 0.5 mg tablet Take 1 tablet 3 times a day by oral route as needed, for Anxiety. 2024 active Not Available Not Available Not Avai lable tamsulosin 0.4 mg capsule TAKE 1 CAPSULE [...] completed Not Available Not Available Not Available [place] 10 mg-325 mg tablet 1-2 tablets every [...] weight Heart rate Body temperature Oxygen saturation Systolic And Diastolic Provider Name and Address Organization Details Last Updated DateTime 4 175.26 cm 27.2 kg/m2 68495.7 9 g 72 /min 97 [degF] 97 % 120/68 mm[Hg] Dorota Herrera [place] - [facility] [employer] 4 17:10:23 Date Recorded Pain severity - 0-10 verbal numeric rating [Score] - Reported Provider Name and Address Organization Details Last Updated DateTime 10/05/2023 0 Genet Nobles RN [facility] [employer] [facility] 10/05/2023 17:14:18 Date Recorded Body height Body mass index (BMI) Body weight Heart rate Body temperature Oxygen saturation Systolic And Diastolic Provider Name and Address Organization Details Last Updated DateTime 175.26 cm 26.4 kg/m2 13777.0 3 g 72 /min 97.5 [degF] 96 % 122/74 mm[Hg] Deanna Lawrence Leroy [facility] 4 16:46:53 Date Recorded Body height Body weight Heart rate Body temperature Oxygen saturation Systolic And Diastolic Provider Name and Address Organization Details Last Updated DateTime 175.26 cm 20875.5 5 g 97 /min 97 [degF] 98 % 140/70 mm[Hg] Deanna Lawrence Leroy [facility] 11:52:38 Date Recorded Body height Body mass index (BMI) Body weight Provider Name and Address Organization Details Last Updated DateTime 08/30/2024 175.26 cm 26.6 kg/m2 09621.63 g [facility] 08/30/2024 13:12:21 Date Recorded Body height Body mass index (BMI) Body weight Provider Name and Address Organization Details Last Updated DateTime 09/06/2024 175.26 cm 26.6 kg/m2 24960.63 g [facility] 09/06/2024 13:34:48 Social History Question Answer Notes LastModified by Organizat ion Details LastModified Time Tobacco Smoking Status Never Smoker Not Available [facility] 11/24/2022 06:54:06 Do You Have An Advance Directive? Yes MIGRATION.[id number] Information not available 11/24/2022 Are You Blind Or Do You Have Difficulty Seeing? No MIGRATION.00939 54433 Information not available 11/24/2022 Are You Deaf Or Do You Have Serious Difficulty Hearing? Yes Has Hearing Aids MIGRATION.96824 28244 Information not available 11/24/2022 What Type Of Diet Are You Following? REGULAR MIGRATION.11648 20522 Information not available 11/24/2022 Have There Been Any Changes To Your Family Or Social Situation? No MIGRATION.33110 91546 Information not available 11/24/2022 What Is The Fluoride Status Of Your Home? Unknown MIGRATION.75647 53806 Information not available 11/24/2022 Are There Any Guns Present In Your Home? No MIGRATION.83847 88964 Information not available 11/24/2022 Do You Use Insect Repellent Routinely? No MIGRATION.83546 32792 Information not available 11/24/2022 Where Do You Live? SingleLevelHouse MIGRATION.32939 06994 Information not available 11/24/2022 Guns Present In The Home? Yes Information not available 10/05/2023 Are You Able To Care For Yourself? Yes [email or web address] Information not available 10/05/2023 Are You Blind Or Do Yo Have Difficulty Seeing? No [email or web address] Information not available 10/05/2023 Are You Deaf Or Do You Have Serious Difficulty Hearing? Yes [email or web address] Information not available 10/05/2023 Live Alone Of With Others? With Others [email or web address] Information not available 10/05/2023 Do You Have A Medical Power Of Aluminum Pool Installer? Yes MIGRATION.47930 08392 Information not available 11/24/2022 What Was The Date Of Your Most Recent Tobacco Screening? 10/05/2023 [email or web address] Information not available 10/05/2023 Do You Have Any Pets? No MIGRATION.54760 30177 Information not available 11/24/2022 What Is Your Relationship Status? MIGRATION.43535 86769 Information not available 11/24/2022 Do You Use Your Seat Belt Or Car Seat Routinely? Yes [email or web address] Information not available 10/05/2023 Do You Have Smoke And Carbon Monoxide Detectors In Your Home? Yes MIGRATION.57325 71351 Information not available 11/24/2022 Are You Passively Exposed To Smoke? No MIGRATION.12129 50388 Information not available 11/24/2022 Are There Any Smokers In Your House? No MIGRATION.13232 48766 Information not available 11/24/2022 Do You Use Sunscreen Routinely? Yes MIGRATION.91241 54839 Information not available 11/24/2022 Have You Recently Traveled Abroad? No MIGRATION.22219 96709 Information not available 11/24/2022 Do You Have Difficulty Walking Or Climbing Stairs? No MIGRATION.49293 60980 Information not available 11/24/2022 Do You Have Any Dietary Restrictions? No MIGRATION.59739 17850 Information not available 11/24/2022 Sex: Unknown Functional Status Question Answer Note LastModified by Organizat ion Details LastModified Time What is your level of alcohol consumption? None MIGRATION.949041 9864 Information not available 11/24/2022 Do you have transportation difficulties? No MIGRATION.115502 2107 Information not available 11/24/2022 Are you able to walk independently without assistance or assistive devices? YESWOREST MIGRATION.730790 2344 Information not available 11/24/2022 Do you have difficulty doing errands alone? No MIGRATION.667353 2583 Information not available 11/24/2022 Are you able to care for yourself independently? 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 No MIGRATION.710521 3068 Information not available 11/24/2022 What is your exercise level? Moderate MIGRATION.503329 6388 Information not available 11/24/2022 Mental Status Question Answer Note LastModified by Organizat ion Details LastModified Time Do you have difficulty concentrating, remembering or making decisions? No MIGRATION.[id number] 6 Information not available 11/24/2022 Family History Nothing Reported Notes:Mother 90 yea rs old recent WIPING RAG WASHER hemorrhage Father 59 years old from [place] of Colon 5 Brothers 5 Living one has arteriosclerotic heart disease and CABG, CVA and some multi-infarct dementia. Medical History Condition Response NERVE DISEASE N BLINDNESS N RHEUMATIC FEVER N KIDNEY STONES N BLADDER PROBLEMS N MRSA N OTHER # 1 N POLIO N LUNG DISEASE/DISORDER N RADIATION / CHEMOTHERAPY N COPD N Other # 2 N BLOOD DISEASES N SURGERY N EAR OR HEARING PROBLEMS N MUMPS N BOWEL PROBLEMS N DEPRESSION (INCLUDING POST ) N STROKE/TIA N ULCERS N BENIGN PROSTATIC [...] INSOMNIA N HIGH CHOLESTEROL / HYPERLIPIDEMIA N EYE PROBLEMS N HYPERTHYROIDISM N NEUROLOGICAL PROBLEMS N EDEMA N CHRONIC PAIN SYNDROME N HYPOTHYROIDISM N CONSTIPATION N CAROTID BLOCKAGE N BACK / NECK PROBLEMS N HAVE YOU BEEN HOSPITALIZED OR SEEN IN [facility] IN THE PAST YEAR ? N ATHEROSCLEROSIS N BREAST PROBLEMS N DIALYSIS N ECZEMA N OSTEOPOROSIS N ARTHRITIS N NO SIGNIFICANT PAST MEDICAL HISTORY N APPENDICITIS N DIABETES, TYPE N BAD TEETH N ENT N HEARTBURN / REFLUX N AUTISM SPECTRUM DISORDER (ASD) N HEPATITIS / LIVER DISEASE N GOUT N SLEEP DISORDER N ALZHEIMER'S DISEASE N Brain Problems N DEMENTIA N HERPES N SEIZURES/EPILEPSY N HEADACHES/MIGRAINES N VASCULAR DISEASE N PACEMAKER N Blood Disorder N DIZZINESS N HEART DISEASE/HEART PROBLEMS N KIDNEY DISEASE N MULTIPLE SCLEROSIS N CANCER: SPECIFY N CARDIAC ARRHYTHMIA N ATRIAL FIBRILLATION N Gall Stones N PULMONARY EMBOLISM N AUTOIMMUNE DISEASE N Immunizations Vaccine Type Date Status Note Provider Nam e and Address Organization Details Recorded Time SARS-COV-2 (COVID-19) vaccine, UNSPECIFIED 1 completed Not Available [facility] 11/24/2022 07:01:16 SARS-COV-2 (COVID-19) vaccine, UNSPECIFIED 1 completed Not Available [facility] 11/24/2022 07:01:16 SARS-COV-2 (COVID-19) vaccine, UNSPECIFIED 1 completed Not Available [facility] 11/24/2022 07:01:16 pneumococcal polysaccharide PPV23 2 completed Not Available [facility] 11/24/2022 07:01:17 Influenza, high-dose, quadrivalent, PF 2 completed Not Available [facility] 11/24/2022 07:01:17 Influenza, high-dose, quadrivalent, PF 0 completed Not Available [facility] 11/24/2022 07:01:17 Pneumococcal conjugate PCV 13 0 completed Not Available [facility] 11/24/2022 07:01:17 Past Encounters Encounter ID Performer Location Encounter Start Date Encounter Closed Date Diagnosis/Indication Diagnosis SNOMED-CT Code Diagnosis ICD10 Code Diagnosis IMO Codes Diagnosis Note [id number] Alonzo Flores MD [facility] Internal Med [place] [address] [place] [address] [place] [address] 03/10/2021 00:00:00 03/10/2021 16:59:43 [id number] Alonzo Flores MD [facility] Internal Med Naseemvi llmonique [address] [place] [address] [place] [address] 03/16/2022 00:00:00 03/16/2022 16:27:28 [id number] Alonzo Flores MD [facility] Internal Med Mary llmonique [address] [place] [address] [place] [address] 09/14/2022 00:00:00 09/14/2022 17:08:33 [id number] Alonzo Flores MD [facility] Internal Med [place] [address] [address] 03/17/2023 10:29:43 03/17/2023 10:40:26 Pure hypercholesterolemia 355847848 E78.00 Depressive disorder 3548 9007 F32.9 [id number] Alonzo Flores MD [facility] Internal Med [place] [address] [address] 10/05/2023 16:47:56 10/05/2023 17:36:11 Adult health examination 893776145 Z00.00 Screening for disorder 451764629 Z13.9 Pure hypercholesterolemia 705999751 E78.00 Depressive disorder 3548 9007 F32.9 Sleep apnea 89110645 G47 .30 [id number] Alonzo Flores MD [facility] Internal Med [facility] [address] [address] 04/04/2024 16:42:50 04/04/2024 17:14:12 Depressive disorder 42577750 F32.9 Benign pro static hyperplasia without outflow obstruction 585581811 N40.0 Pure hypercholesterolemia 826793071 E78.00 [id number] Alonzo Flores MD [facility] Internal Med [place] [address] [facility] [place] [address] 08/29/2024 11:47:40 08/29/2024 12:20:18 Pure hypercholesterolemia 150142984 E78.00 Depressive disorder 3548 9007 F32.9 Benign pro static hyperplasia without outflow obstruction 587212274 N40.0 Family his tory of malignant neoplasm of gastrointestinal tract 862233456 Z80.0 Pain of ri ght knee joint 9849804972 24412 M25.561 Disorder of prostate 302 73779 N42.9 [id number] Harry Floyd MD [facility] [place] [place] [address] [place] [address] 08/30/2024 12:51:35 08/30/2024 13:39:39 Pain of right knee joint 7895492318 54350 M25.561 Prepatellar bursitis 170 10619 M70.41 [id number] Harry Floyd MD [facility] [place] [address] [place] [address] 09/06/2024 13:31:51 09/06/2024 14:14:03 Prepatellar bursitis 61421618 M70.41 Pain of ri ght knee joint 5932566061 66331 M25.561 Health Concerns Section Related Observation LastModified by Organization Detai ls LastModified Time None Recorded Concern Status LastModified by Organization Details LastModified Time None Recorded Advance Directives Directive Y: Payers Insurance Date Sequence Insurance Name Policy Number Policy Madison Covered Member ID Madison Member ID Guarantor Name 09/05/2024 1 [employer] (MEDICARE REPLACEMENT/A DVANTAGE - HMO) Lei Vines [id number] Lei Vines Notes Date Note Type Note Provider Name and Address Organization Details Recorded Time 10/05/2023 text/html Patient Name: Lei JasmynDate Of Service: Tuesday ( 10.05.2023 ): 1955 [...] MG (CAPSULE - ORAL) One DailyVaccination and Vorzgmspsvxj8028-61 Obrdiaqix4084-62 Wruayxvdt4356-35 Covid Booster Pfgiiyk5388-32 Covid Jaeahzp7706-89 Prevnar 13 GcSurgical HistoryRt. Inguinal Hernia, Esophageal Dilatation, Ureteral stonePreventative Testing Confirmed by Our Rgpxmqd3611/27/2022 ALBUMIN 4.2 G/DL N011/27/2022 PSA 0.53 NG/ML N006/15/2021 COLONOSCOPY ( 5 YEARS ) / UPPER ENDOSCOPYSocial HistorySOCIAL HISTORY:Does not smoke cigarettes. Drinking Hx: 2 Cups of tea perday, < 6 cans of soft drinks per day.Exercise: WeeklySexual Hx: Sexually ActiveOccupation: AccountantFamily HistoryFAMILY HISTORY:Mother 90 years old recent WIPING RAG WASHER hemorrhageFather 59 years old from [place] of [place]5 Brothers 5 Living one has arteriosclerotic heart disease and CABG, CVA and some multi-infarct dementia. Alonzo Flores MD [address] [place] [address], [facility] [address], [place], [address], [facility] 10/05/2023 17:31:51 04/04/2024 text/html Patient Name: Lei [...] (CAPSULE - ORAL) One Daily Vaccination and Ssaiopxcgyff2951-99 Rrbyfhdgf4384-19 Twuitizwz8469-51 Covid Booster Plirvgs0702-05 Covid Klvejlp1916-22 Prevnar 13 Gc Surgical Bihwiuj4868-81 Rt. Inguinal Ziyedn5780-48 Esophageal Avqchtoird8574-01 Ureteral stone Preventative Jvcsgqu7402/23/2024 ALBUMIN 4.2 G/DL N011/27/2022 PSA 0.53 NG/ML N006/15/2021 COLONOSCOPY ( 5 YEARS ) UPPER ENDOSCOPY Social HistorySOCIAL HISTORY:Does not smoke cigarettes. 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 TEST RESULT RANGE UNITSLIPID PANEL, STANDARD Date: 02/23/2024HOLESTEROL, TOTAL 171 <200 MG/DLHDL CHOLESTEROL 61 > OR = 40 MG/DLTRIGLYCERIDES 71 <150 MG/DLLDL-CHOLESTEROL 94 MG/DL (CALC)COMPREHENSIVE METABOLIC PANEL Date: 02/23/2024SODIUM 141 135-146 MMOL/LPOTASSIUM 4.7 3.5-5.3 MMOL/LGLUCOSE 92 65-99 MG/DLUREA NITROGEN (BUN) 15 7-25 MG/DLCREATININE 1.01 0.70-1.28 MG/DLEGFR 80 > OR = 60 ML/MIN/1.63H3JJWDSNHCJ, TOTAL 0.8 0.2-1.2 MG/DLALKALINE PHOSPHATASE 63 35-144 U/LAST 26 10-35 U/LALT 21 9-46 U/LT4, FREE Date: 02/23/2024T4, FREE 1.0 0.8-1.8 NG/DLTSH Date: 02/23/2024TSH 3.72 0.40-4.50 MIU/LCBC (INCLUDES DIFF/PLT) Date: 02/23/2024WHITE BLOOD CELL COUNT 6.1 3.8-10.8 THOUSAND/ULHEMOGLOBIN 13.5 13.2-17.1 G/DLHEMATOCRIT 40.2 38.5-50.0 %PLATELET COUNT 238 140-400 THOUSAND/UL Alonzo Flores MD [address] [facility] [address], [place], [address], [facility] 04/04/2024 17:07:31 08/29/2024 text/html Patient Name: Lei Almarazrosa Of Service: Tuesday ( 08.29.2024 ): 1955 [...] ORAL) One Daily Vaccination and Immunization( ) 2019-11 PREVNAR 13 GC(X) 2021- INFLUENZA( ) 2020- COVID MODERNA(X) 2020- COVID BOOSTER MODERNA( ) 2022-08 PNEUMOVAX Surgical Kyahcxx5266-39 Rt. Inguinal Rclqaq1951-05 Esophageal Hugjsvafag2273-88 Ureteral stone Preventative Testing( ) 02/23/2024 Albumin 4.2 G/DL N( ) 11/27/2022 PSA 0.53 NG/ML N 11/27/2024( ) 06/15/2021 Colonoscopy ( 5 Years ) 06/15/2026( ) 02/18/2011 Upper Endoscopy Social HistorySOCIAL HISTORY:Does not smoke cigarettes. 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 Alonzo Flores MD [address], [place], [address], [employer] [facility] [employer] 08/29/2024 12:13:38 08/30/2024 text/html The patient is [...] the patient. JOSE RAMON Chávez [address], [place], [address], [employer] [facility] [employer] 08/30/2024 13:46:19 09/06/2024 text/html Patient returns for recheck of his right knee. I saw him 1 week ago we did an aspiration of his right knee prepatellar bursa. He states that he knows now why his knee flared up. He was on his knees on concrete trimming grass around the edge of the driveway with the deckhand clam dredge. He then developed a prepatellar bursitis there [...] in today for recheck. JOSE RAMON Chávez [address] [facility], [facility] [address], [place], [address], [facility] 09/06/2024 13:47:15
[2025-09-04 10:49] VITALS: BMI 25.3
[2025-09-04 10:51] VITALS: BP 129/72; PULSE 60; RESP 20; TEMP 36.4; O2SAT 99
--- NOTE | 2025-09-04 10:51 | WPDANESEPPF ---
Anes - Initial Pre Proc Eval Procedure: Operation Date: 09/04/25 14:15 Proposed Procedures p Esophagogastroduodenoscopy - Bernard Castro MD Date/Time: 09/04/25 10:51 Surgeon: Bernard Castro MD Pre Op Diagnosis: Food in esophagus causing other injury, initial en Patient Data Age: 70 Gender: M Height: 1.78 m Weight: 80.1 kg Allergies Allergy/AdvReac Type Severity Reaction Status Date / Time No Known Allergies Allergy Verified 09/04/25 10:48 Home Medications ?Medication ?Instructions ?Recorded ?Confirmed ?Type escitalopram oxalate 10 mg tablet 10 mg PO DAILY 03/14/20 09/04/25 History cyanocobalamin (vitamin B-12) 1,000 mcg PO DAILY 04/04/20 09/04/25 History 1,000 mcg tablet multivitamin,lc-uhjv-sidckkcx 1 tablet PO DAILY 04/04/20 09/04/25 History (Complete Multivitamin tablet) saw palm 160 mg-vit E 100 1 tablet PO DAILY 04/04/20 09/04/25 History unit-selen 100 wrr-brez-aukyqp-pygeum tablet (Prostate Health) vitamins A,C,Z-jjmr-okkibl 4,296 1 cap PO DAILY 06/05/21 09/04/25 History mcg-226 mg-90 mg capsule (PreserVision AREDS) omeprazole 20 mg capsule,delayed 20 mg PO DAILY #30 caps 07/24/25 09/04/25 Rx release Patient hx anesthesia problems: none Family hx anesthesia problems: none Results Review: All pre-operative results and documents have been reviewed as part of the pre-operative evaluation. [facility] Past Medical History Medical History Dysphagia Anxiety Cataracts, both eyes maturing High cholesterol History of kidney stones Surgical History Surgical History History of colonoscopy with polypectomy (05/2021) Status post cystoscopy with ureteral stent placement (~2016) History of left inguinal hernia repair (04/10/20) H/O nephrolithotomy with removal of calculi (~2016) Family History Family History Father Carcinoma of colon Sibling Heart disease Cerebrovascular accident Unknown No problems noted. Grandparent Diabetes mellitus Tuberculosis Social History Social History Social History: The patient lives with his of 48 years. They have 1 daughter and 2 sons who are healthy. 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 He is a lifelong nonsmoker and does not drink alcohol. Code status: Full code Surrogate decision maker: Smoking status: Never smoker Alcohol intake: never Substance use: never Substance use type: does not use Lack of Transportation: No Lack of Food: Never True Current Housing: I Have Housing Concerned About Future Housing: No Difficulty Paying Gas/Electric Bills: No Difficulty Paying for Meds: No Currently Unemployed: No Education: Bachelor's Degree Difficulty w/ Childcare or Family Care: No Living arrangements: alone Spiritual care concerns: No Anes - Eval Final PreProcedure Day of Procedure 09/04/25 10:51 Patient weight: overweight Heart: regular rate and rhythm Lungs: clear to auscultation Airway: Mallampati scale class II Neurological: alert and oriented Last oral intake: >/= 8 hours ASA classification: II Emergent: no Anesthetic plan: proceed Anesthesia type and monitoring: general GIVS and standard monitoring Results Review: All pre-operative results and documents have been reviewed as part of the pre-operative evaluation. Informed Consent: The patient's anesthetic plan and its attendant risks and benefits were discussed with the patient/family/POA. Questions were solicited and answers provided to the satisfaction of the patient/family/POA.
[2025-09-04] MEDS: LACTATED RINGERS 1,000 ML 150 ML IV CONT (11:03)
--- NOTE | 2025-09-04 11:13 | PM.HPGS ---
History of Present Illness History of Present Illness Consent: Risks, benefits, and alternatives have been discussed and questions answered. Patient agrees to proceed with procedure. Chief complaint: Food in esophagus causing other injury, initial en Narrative: Lei Vines Jr. is a 70 year old male with food bolus few weeks ago that required urgent egd, now taking omeprazole and no more issues. Here to reassess Review of Systems Review of Systems: All systems reviewed & are unremarkable except as noted in HPI and below PMFSH Past Medical History Medical History Dysphagia Anxiety Cataracts, both eyes maturing High cholesterol History of kidney stones Surgical History Surgical History History of colonoscopy with polypectomy (05/2021) Status post cystoscopy with ureteral stent placement (~2016) History of left inguinal hernia repair (04/10/20) H/O nephrolithotomy with removal of calculi (~2016) Family History Family History Father Carcinoma of colon Sibling Heart disease Cerebrovascular accident Unknown No problems noted. Grandparent Diabetes mellitus Tuberculosis Social History Social History Social History: The patient lives with his of 48 years. They have 1 daughter and 2 sons who are healthy. 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 He is a lifelong nonsmoker and does not drink alcohol. Code status: Full code Surrogate decision maker: Smoking status: Never smoker Alcohol intake: never Substance use: never Substance use type: does not use Lack of Transportation: No Lack of Food: Never True Current Housing: I Have Housing Concerned About Future Housing: No Difficulty Paying Gas/Electric Bills: No Difficulty Paying for Meds: No Currently Unemployed: No Education: Bachelor's Degree Difficulty w/ Childcare or Family Care: No Living arrangements: alone Spiritual care concerns: No Meds Home Medications and Allergies Home Medications ?Medication ?Instructions ?Recorded ?Confirmed ?Type escitalopram oxalate 10 mg tablet 10 mg PO DAILY 03/14/20 09/04/25 History cyanocobalamin (vitamin B-12) 1,000 mcg PO DAILY 04/04/20 09/04/25 History 1,000 mcg tablet multivitamin,vk-mmxf-escqeomu 1 tablet PO DAILY 04/04/20 09/04/25 History (Complete Multivitamin tablet) saw palm 160 mg-vit E 100 1 tablet PO DAILY 04/04/20 09/04/25 History unit-selen 100 zpy-eozr-wiajxy-pygeum tablet (Prostate Health) vitamins A,C,I-auex-nzpsuk 4,296 1 cap PO DAILY 06/05/21 09/04/25 History mcg-226 mg-90 mg capsule (PreserVision AREDS) omeprazole 20 mg capsule,delayed 20 mg PO DAILY #30 caps 07/24/25 09/04/25 Rx release Allergies Allergy/AdvReac Type Severity Reaction Status Date / Time No Known Allergies Allergy Verified 09/04/25 10:48 Vital Signs Vital Signs - 24 hr 09/04/25 10:51 Temperature 97.5 F L Pulse Rate 60 Respiratory Rate 20 Blood Pressure 129/72 Pulse Oximetry 99 Oxygen Delivery Room Air Exam Const: General: comfortable and no acute distress HENMT: Face/Nose/Sinus: Normal nares present Eyes: General: appearance normal, both eyes and all related structures Neck: Neck: no JVD Resp: Auscultation: clear to auscultation bilaterally Cardio: Rate: regular rate Rhythm: regular rhythm GI: Inspection: non-distended GI Palp: Yes Soft to palpation Skin: General skin exam: normal color Extrem: General: normal to inspection Psych: Mental Status: mental status grossly normal Assessment and Plan Assessment and plan (1) Dysphagia: Code(s): R13.10 - Dysphagia, unspecified Status: Acute Assessment and Plan: egd
--- NOTE | 2025-09-04 11:23 | S_PTH ---
PATIENT: Lei Vines Jr. LOC: [facility]#:[id number] AGE/SX: 70/M ROOM: RE09/04/[address]: Bernard Castro MD : 1955 BED: DIS: 09/04/2025 SPEC #: [id number] RECD: 09/04/25 13:31 STATUS: GRANT DERAS #: [id number] BRIANA: 09/04/25 11:[address]: Bernard Castro DEPT: [facility] Surgical RECD BY: Jael Holman MLT, ([facility]) ENTERED: 09/04/25 13:31 SP TYPE: Surgical OTHR DR: Jeremy Flores, Tissues: A - Gastric Biopsy B - Esophageal Biopsy Procedures: Hematoxylin and Eosin Stain Gross and Microscopic Level 4
[2025-09-04 11:24] VITALS: BP 89/41; PULSE 60; RESP 21; O2SAT 98
[2025-09-04 11:34] VITALS: BP 97/49; PULSE 53; RESP 19; O2SAT 97
[2025-09-04 11:44] VITALS: BP 112/55; PULSE 56; RESP 20; O2SAT 100
== END 2025-09-04 11:57 | disposition home or self-care (01) ==
PROVIDERS: PCP Internal Medicine; Referring Provider Internal Medicine Gastroenterology; Visit Provider Internal Medicine Gastroenterology
PROC: 0DJ08ZZ Inspection of Upper Intestinal Tract, Via Natural or Artificial Opening Endoscopic (ICD-10-PCS; CPT 43239; principal; 2025-09-04 14:15)
DX: K22.2 Esophageal obstruction (principal); K20.0 Eosinophilic esophagitis; K44.9 Diaphragmatic hernia without obstruction or gangrene
CPT/HCPCS: 43239; 43249; 88305; C1726; J2003; J2704; J7120